=== PATIENT | male | born 1960 | race Caucasian/White ===

== ENCOUNTER → 2020-08-06 09:50 | Outpatient (CLI) | payer OTHER, SELFPAY ==
[2020-07-17 13:08] VITALS: BMI 28.1
--- NOTE | 2020-08-07 10:00 | HP_ITS ---
Intake Vital Signs 07/17/20 Height 5 ft 10 in 07/17/20 Weight: 196 lb 07/17/20 BMI 28.1 07/17/20 BP 109/80 07/17/20 Blood Pressure Location Rt brachial 07/17/20 Position Sitting 07/17/20 Respiration 18 07/17/20 Pulse 92 07/17/20 Pulse Source Monitor 07/17/20 Temp 97.4 F L 07/17/20 Temp Source Temporal 07/17/20 Pulse Oximetry (%) 98 07/17/20 Oxygen Delivery Method room air Intake Visit Reasons: CSCOPE Chief Complaint: c-scope consult Chief Specialist Leed Required: No Is patient in pain?: No Allergies Penicillins Allergy (Mild, Verified 07/17/20 13:09) Itching/watering eyes Medications carvedilol 25 mg tablet 25 mg PO BID 07/17/20 [History Confirmed 07/17/20] diclofenac sodium 1 % topical gel 4 g TOPICAL .asdir g 07/17/20 [History Confirmed 07/17/20] ibuprofen 800 mg tablet 1,600 mg PO DAILY tab 07/17/20 [History Confirmed 07/17/20] lisinopril 20 mg-hydrochlorothiazide 25 mg tablet 1 tab PO DAILY 07/17/20 [History Confirmed 07/17/20] PFSH Medical History Family history of colon cancer (Acute) Hyperlipidemia (Acute) Nicotine dependence (Acute) Chronic low back pain (Chronic) Hypertension (Chronic) Surgical History History of tonsillectomy and adenoidectomy (Acute) history excision benign growth left thigh (Acute) Family History Father Colon cancer Social History (Updated 07/17/20 @ 13:[address] Flavio Pederson MD) Smoking Status: Current every day smoker alcohol intake: current alcohol intake frequency: a few times a month substance use type: does not use HPI HPI HPI: DELFINA VANESSA is a 60 M who presents to the office today for HPI HPI Surgical H&P: Yes HPI: DELFINA VANESSA is a 60 M who presents to the office today for Evaluation for colonoscopy. Patient has never had a colonoscopy in the past. Patient's father of colon cancer at age 77 and was diagnosed at age 74. Patient has been moving his bowels without difficulty. Has not noticed any blood is not having any abdominal pain. ROS General General: No weight change, appetite, fatigue, colon cancer, breast cancer or weakness HEENT HEENT: No difficulty swallowing, eye injury, eye surgery, swollen glands or hoarseness Endo Endocrine: No thyroid disease, diabetes mellitus, thyroid cancer, Hair loss, heat intolerance or cold intolerance Skin Skin: No rash or changing moles Breast Breast: No left breast lump, right breast lump, nipple discharge, breast pain, abnormal mammogram, abnormal US or breast enlargement Musc Musculoskeletal: Yes back problems; no arthritis, rheumatoid arthritis, gout or joint pain Cardio Cardiovascular: Yes high blood pressure; no murmur, pacemaker, heart disease, atrial fibrillation, heart attack, heart stent, palpitations, shortness of breat with exertion or chest pain Psych Psychiatric: No depression, anxiety or hearing voices Resp Respiratory: No shortness of breath, No sleep apnea, No cough, No COPD, No asthma, No emphysema, No wheezing Gastro Gastrointestinal: No abdominal pain, No nausea or vomiting, No diarrhea, No constipation, No blood in stool, No acid reflux, No hemorrhoids, No ulcers, No gallbladder problem, No black,tarry stools Lul Hematologic: No blood thinners, No blood disorders, No bleeding, No anemia, No blood clots Neuro Neurologic: No system reviewed and no additional complaints, except as docu, No as per HPI, No abnormal walking, No abnormal hearing, No abnormal movements, No abnormal speech, No behavioral changes, No burning sensations, No confusion, No seizure-like activity, No unsteadiness, No dizziness, No localized weakness, No frequent falls, No headache(s), No lack of coordination, No loss of vision, No memory loss, No numbness, No other visual disturbances, No radiating pain, No restless legs, No sensory deficit, No fainting, No tingling, No tremor(s), No weakness, No other Exam Const General: no acute distress, well developed, well hydrated Orientation: oriented to person, oriented to place, oriented to time [facility] Head: normocephalic, atraumatic Ears: external ears normal Mouth: moist mucous membranes Eyes Sclera: sclerae normal Pupils: normal by confrontation Neck Neck: no lymphadenopathy noted Neck mass: No Thyroid: thyroid normal, symmetrical Chest Chest palpation & inspection: normal inspection of the chest Breast Palpation: No nipple discharge Resp Effort & Inspection: normal respiratory effort Auscultation: clear to auscultation bilaterally Percussion: percussion normal Cardio Rate: regular rate Rhythm: regular rhythm Heart Sounds: no murmurs GI Palpation: soft, no hepatosplenomegaly, no masses, nontender Rectal Exam: other Other: Rectal exam deferred. Extrem General: normal to inspection, no clubbing, cyanosis or edema Assessment & Plan Problems 1. Encounter for screening colonoscopy Z12.11 Plan I have discussed the above with the patient. I have offered the patient colonoscopy for evaluation. I have explained the risks/benefits of the procedure and described the procedure. I have discussed the risks with the patient, including but not limited to: infection, bleeding, perforation of the GI tract requiring emergency surgery, inability to complete the procedure, injury to any internal organs, complications of anesthesia, etc. - the patient understands and agrees to proceed. I have answered all the patient's questions to the patient's satisfaction and the patient has no further questions. The patient has been given instructions for the colon cleansing preparation. Coding Level of Care Code Off vis,new,level 3 Diagnoses Encounter for screening colonoscopy Z12.11 COVID (Procedure Consent) Procedure Criteria Procedure Criteria: Yes Elective The surgeon/proceduralist and patient have discussed in detail the risk of exposure to and/or potential harm posed by the COVID-19 virus with having a surgery/procedure at this time versus the risk of? delaying the surgery/procedure. It is not possible to know either the risk of delaying the surgery or procedure or chance of getting an infection with perfect accuracy, but a joint decision was made between the patient and the surgeon/proceduralist ?to proceed at this time with the scheduled surgery/procedure as indicated on the consent form.
== END ==
PROVIDERS: Visit Provider Surgery
DX: U07.1 COVID-19 (principal)
CPT/HCPCS: 87426; C9803

== ENCOUNTER 2023-10-13 09:55 | Inpatient (IN) | payer OTHER, SELFPAY ==
[2023-10-13] VITALS (47 sets, daily range): BP systolic 105–171; BP diastolic 61–97; PULSE 84–105; RESP 9–34; TEMP 36.3–37; O2SAT 89–100; BMI 25.4; BMI 24.3
--- NOTE | 2023-10-13 10:31 | EKG12_ITS ---
Test Reason : Blood Pressure : / mmHG Vent. Rate : 087 BPM Atrial Rate : 086 BPM P-R Int : 124 ms QRS Dur : 072 ms QT Int : 362 ms P-R-T Axes : 056 -05 -22 degrees QTc Int : 435 ms Sinus rhythm Possible Inferior infarct , age undetermined Abnormal ECG Confirmed by BALBINA POWELL, BACILIO ([id number]), publication editor CAROLYN CARROLL ([id number]) on 10/15/2023 8:01:49 AM Referred By: Confirmed By:BACILIO MORTENSEN MD
--- NOTE | 2023-10-13 10:35 | EX.ED.DYSGE1 ---
HPI History of Present Illness Chief Complaint: Flank Pain Narrative Narrative: Patient is a 63-year-old male who is presenting to the ER by EMS. [facility]. is at bedside. Patient is coming in secondary to severe right lateral lower chest wall pain, unable to take care of himself at home, unable to perform activities of daily living. Patient apparently has been in his lower basement, he was at home with his . Patient has been staying on the couch. Patient is been having difficulty getting to the bathroom for urination and bowel movements, and patient has been having urination and bowel movements along the couch and on the floor. EMS states that the patient's living conditions are very concerning. Patient says that he cannot get himself to the bathroom secondary to right lower lateral chest wall pain. Patient was at the [place] several weeks ago for evaluation of this pain, they did minimal test, discharge patient, and patient were not happy initially with the care. Patient is a [facility] patient, they have no other insurance, they want to make sure that everything is run by the [facility] to make sure patient can be admitted to [facility], they want patient admitted to [facility] but wants to make sure the bills are paid because they have no other insurance. They were not happy with the care at the [place]. Patient has no urinary frequency or urgency or burning. No abdominal pain nausea vomiting. Patient is 1-2 pack-a-day smoker for many years, patient has a history of emphysema and COPD, he does not wear oxygen at home. Patient has an inhaler, uses breathing treatments intermittently. Patient currently has no chest pain or shortness of breath. Patient is only having right lateral lower chest wall pain and right flank pain, patient however states this is causing inability for him to get up and walk to the bathroom which is concerning and does not quite make sense initially during HPI. [facility] Medical History (Updated 10/14/23 @ 22:[address] Renny Navarro DO) Alcohol abuse Chronic low back pain Family history of colon cancer Hyperlipidemia Hypertension Nicotine dependence Home Medications carvedilol 25 mg tablet 25 mg PO BID BLOOD PRESSURE 07/17/20 [History Last Taken 10/12/23] diclofenac sodium 1 % topical gel 4 g topical UD PRN PAIN 07/17/20 [History Last Taken 10/12/23] lisinopril 20 mg-hydrochlorothiazide 25 mg tablet 1 tab PO BID BLOOD PRESSURE 07/17/20 [History Last Taken 10/13/23] cholecalciferol (vitamin D3) 50 mcg (2,000 unit) capsule (D3-2000) 50 mcg PO DAILY SUPPLEMENT 10/13/23 [History Last Taken 10/13/23] ibuprofen 200 mg tablet 200 - 400 mg PO Q4H PAIN 10/13/23 [History Last Taken 10/13/23] omega 8-twt-vyt-fish oil 1,200 mg (144 mg-216 mg) capsule (Fish Oil) 1 cap PO DAILY SUPPLEMENT 10/13/23 [History Last Taken 10/13/23] vitamin B complex (B Complex-Vitamin B12 tablet) 1 tab PO DAILY SUPPLEMENT 10/13/23 [History Last Taken 10/13/23] Allergy/AdvReac Type Severity Reaction Status Date / Time Penicillins Allergy Mild Itching/watering Verified 10/13/23 09:56 eyes Family History Father Colon cancer Surgical History history excision benign growth left thigh History of tonsillectomy and adenoidectomy Social History (Updated 10/13/23 @ 19:[address] Kika Garcia DO) household members: spouse housing: house Smoking Status: Current every day smoker tobacco type: cigarettes alcohol intake: current alcohol intake frequency: a few times a month substance use type: does not use ROS ROS ED ROS Narrative Unless otherwise stated in this report or unable to obtain because of the patient's clinical or mental status as evidenced by medical record, the patient's positive and negative responses for review of systems for constitutional, eyes, ENT, cardiovascular, respiratory, gastrointestinal, neurological, , musculoskeletal, and integument systems and related systems to the presenting problem are either stated in the history of present illness or were not pertinent or were negative for the symptoms and/or complaints related to the presenting medical problem. EXAM Physical Exam Narrative Exam Narrative: vital signs reviewed and patient is not hypoxic. at bedside, [facility] General: The patient appears Mild distress secondary to pain and discomfort. Patient's is at bedside. Patient is resting uncomfortably on cart. Not toxic, lethargic, or listless. Patient is disheveled, tobacco staining to his alvarenga around his mouth, slightly disoriented and confused; Alert and oriented times x 3, slightly confused to time. Patient is laying in his left side, holding his right lateral chest wall Skin: Warm, dry, no pallor noted. There is no rash noted. Head: Normocephalic, atraumatic Eye: Normal conjunctiva, no drainage, EOMI. PERRL. Ears, Nose, Mouth, and Throat: oral mucosa is moist. Nares patent. Mouth without vesicles. Poor dentition, no acute intraoral pathology. Cardiovascular: Regular Rate and Rhythm, no murmurs, gallops, or rubs. Patient has moderate to severe tenderness to palpation to the right lateral chest wall, her ribs approximately 8 through 10. No rash. No crepitus. Respiratory: Patient is in no distress, no accessory muscle use, lungs are clear to auscultation, no wheezing, rales or rhonchi Back: Mild to moderate bilateral lower parathoracic and paralumbar tenderness to palpation, no step-offs, no rash,, no CVA tenderness bilaterally to percussion. NO CTLS midline or paracervicl tenderness to palpation. No signs of saddle anesthesia or cauda equina. No rash. GI: Soft, no tenderness to palpation, no masses appreciated. No rebound, guarding, or rigidity noted. Musculoskeletal: The patient has full range of motion of all extremities and joints with no difficulty. With range of motion to bilateral lower extremities, is not causing any significant pain to lower back, patient has mild hip pain bilateral with range of motion. Patient has no acute motor, no sensory deficits. Neurological: A&O3, Slightly confused to time, normal speech, no focal neurological deficits. NIH 0 Psychiatric: Cooperative; Disheveled. Const Vital Signs: 10/13/23 09:57 10/13/23 10:03 10/13/23 10:31 Temperature 97.4 F L 97.4 F L Temperature Source Temporal Temporal Pulse Rate 93 97 Respiratory Rate 28 H 34 H Blood Pressure 105/61 105/61 Blood Pressure Mean 75 75 Pulse Ox 97 96 Oxygen Delivery Method Room Air Room Air Room Air Oxygen Flow Rate (L/min) 10/13/23 14:00 10/13/23 16:00 Temperature Temperature Source Pulse Rate 101 H 93 Respiratory Rate 23 H 19 H Blood Pressure 129/83 H Blood Pressure Mean 98 Pulse Ox 93 94 Oxygen Delivery Method Room Air Nasal Cannula Oxygen Flow Rate (L/min) 2 MDM MDM MDM Narrative Medical decision making narrative: 1230 I received a phone call from the radiologist. Patient has diffuse mets to multiple of his body extensive to the pelvis, ribs, thoracic and lumbar spine. Patient has almost destruction of T7, T8, T9. Patient also has bilateral PE small, left greater than right. Patient has liver CA as well. This is all a new diagnosis. We are waiting for the official report.Patient has no history of cancer. 40 KCl 1 L normal saline over 4 hours patient potassium is 3.0, patient will be given IV potassium Approx [address] Sierra, she had spoken to Dr Treviño, Oncology. The recommendation was to have an MRI of the brain with and without contrast. If there is no mets noted to the brain, patient can be admitted to [facility]. Patient has no history of cancer. We are uncertain of the primary source, patient has diffuse metastatic disease which Is a new diagnosis today with no primary source.. [address] Garcia. She is aware of the admission and information that Dr. Sierra had given her. Patient has no mets to the brain. Patient will be started on IV heparin for PE protocol. Patient will be admitted inpatient. Patient will have consultation from Dr. Treviño as well. Patient has elevated white blood cells, 16.6. Patient calcium is 12.9. Lactic acid was 2.2, that will be repeated. Patient's alk phos was elevated as well. Patient's ammonia was negative. Tylenol and aspirin were negative. Patient has been receiving Dilaudid which has helped take the edge off patient's pain. We have called the [facility] office 3 different times, left 3 different message. Quantitative Associate did talk to several different people but have never had a return phone call from the right department that Stated [facility]. Patient and are aware of this, patient by to follow be admitted to [facility] because we have had no [facility] with the [facility] despite 3 hours of attempts of phone calls to see if patient may be admitted to [facility] versus transfer. Critical care time 33 minutes exclusive from separate billable procedures that were performed. The following was considered in the determination of critical care but not limited to the level of medical decision making, intensive cardiac and/or respiratory monitoring, frequent vital sign monitoring, evaluation of laboratory studies, evaluation of radiographic studies, oxygen monitoring, and constant monitoring and speaking to family at bedside History & Record Review Discussion w/independent historian: Patient and Family Lab Data Attestation: I reviewed the patient's lab results. Labs: Laboratory Results - last 24 hr 10/13/23 10:05 PTH Intact < 6.3 L Radiography Diagnostic Testing: Clinical Impression(s) from Imaging Studies Brain CT 10/13/23 11:50 IMPRESSION: Normal unenhanced CT scan of the brain. Lytic bone metastasis of the clivus. Electronically Signed: Cameron Faustin MD at 12:46 EST , Chest/Abdomen/Pelvis CT 10/13/23 11:50 IMPRESSION: 1. 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 2. Extensive metastatic disease to the liver. 3. Small bilateral pulmonary emboli as described above. 4. No specific mass, but question distal esophageal thickening and small hiatal hernia. 5. 3.3 cm focal abdominal aortic aneurysm. 6. Moderate to marked diffuse fecal retention. N.B. : The above Results were Read Back by Cameron Faustin MD to Renny Navarro DO, and understanding confirmed on 10/13/2023 12:29:58 (ET). Electronically Signed: Cameron Faustin MD at 12:45 EST , ADDENDUM: 10/13/23 1252 IMPRESSION: 1. 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 2. Extensive metastatic disease to the liver. 3. Small bilateral pulmonary emboli as described above. 4. No specific mass, but question distal esophageal thickening and small hiatal hernia. 5. 3.3 cm focal abdominal aortic aneurysm. 6. Moderate to marked diffuse fecal retention. N.B. : The above Results were Read Back by Cameron Faustin MD to Renny Navarro DO, and understanding confirmed on 10/13/2023 12:29:58 (ET). Electronically Signed: Cameron Faustin MD at 12:45 EST , Brain MRI 10/13/23 13:15 IMPRESSION: Nonspecific destructive lesion of the clivus which may be consistent with multiple myeloma, metastasis or chordoma Clinical correlation recommended No significant abnormality within the brain. No evidence for acute infarct or brain metastasis Electronically Signed: Renny Valerio MD at 16:16 EST , EKG Initial EKG: Attestation: I personally reviewed and interpreted this EKG as follows: (EKG interpretation. Baseline normal sinus rhythm 87 beats a minute. Normal axis deviation. Artifact noted. QTc of 435.) Discharge Plan Dx/Rx/DC Orders Clinical Impression: Metastatic cancer, Change in mental status, Bilateral pulmonary embolism, Hypercalcemia, Acute hypokalemia Disposition Disposition: Acute Care Hospital [facility] Discharge Date/Time: 10/13/23 20:10 Capacity Legal Imaging Assistant Reflex Medical hold order details:: IF a medical hold is selected below, a suggested order for a MEDICAL HOLD will reflex upon signing the document. Next of kin: [place] law dictates a PRIORITY LIST for identifying legal decision-maker/legal next of kin in the following order (LNOK): 1st: The patient?s legal guardian, if any 2nd: The patient's spouse (if status is questionable, consult Risk Management) 3rd: The patient?s adult child(rae) (majority, if multiple children) 4th: The patient?s parents 5th: The patient?s adult siblings (majority, if multiple children siblings)
[2023-10-13] MEDS: 0.9% Normal Saline (1000mL) 1,000 ML 999 ML IV (10:44)
[2023-10-13] MEDS: Ondansetron 4 MG/2 ML Vial IV ×2 (10:44→13:06)
[2023-10-13] MEDS: Morphine 4 MG/ML Syringe IV (10:44)
[2023-10-13 10:49] LABS: Absolute Lymphocyte Count 1.16 X10^3/uL (0.83-4.51); Absolute Neutrophil Count 13.5 X10^3/uL (2.0-7.7); Basophil# 0.13 X10^3/uL; Basophil% 0.8 % (0-1); Eosinophils% 4.2 % (0-5); Hematocrit 47.6 % (40-54); Hemoglobin 16.4 g/dL (13.0-16.5); Lymphocyte # 1.16 X10^3/ul (0.83-4.51); Mean Corp Hgb Conc 34.5 g/dL (32-36); Mean Corpuscular Hgb 29.6 pg (27.0-32.0); Mean Corpuscular Volume 85.9 fL (80-94); Mean Platelet Vol. 10.4 fl (6.2-12.0); Monocyte# 0.94 X10^3/uL; Monocyte% 5.7 % (0-10); NRBC Flagged by Analyzer 0 % (0-5); Neutrophil % 81.5 % (47-70); Platelet Count 385 K/mm3 (150-450); RBC Distribution Width SD 40.7 fl (35.1-43.9); Red Blood Count 5.54 M/mm3 (4.6-6.2); White Blood Count 16.6 K/mm3 (4.4-11.0)
[2023-10-13 10:58] LABS: Bacteria 0 SEEN /hpf (None Seen); Mucous, Urine 0 SEEN /hpf (<or=2+); Red Blood Cells-Urine 0 SEEN /hpf (0-5); Squamous Epithelial Cells - UA 0 SEEN /hpf (0-5)
[2023-10-13 11:01] LABS: Alcohol, Blood (Medical)-Serum < 3.0 mg/dL
[2023-10-13 11:13] LABS: Lactic Acid 2.2 mmol/L (0.4-1.9)
[2023-10-13 11:15] LABS: Glucose, Dipstick Normal (Normal); Ketone-Dipstick 50 mg/dl (Negative); Leukocyte Esterase-Dipstick 25 /ul (Negative); Nitrite-Dipstick Negative (Negative); Occult Blood-Urine 10 /ul (Negative); Protein-Dipstick 30 mg/dl (Negative); Specific Gravity, Urine 1.025 (1.002-1.030); Urine Bilirubin Dipstick Negative (Negative); Urine Urobilinogen 1 mg/dl (Normal)
[2023-10-13 11:16] LABS: ALB/GLOB Ratio 0.8 RATIO (0.9-2.4); AST(SGOT) 17 U/L (15-37); Alanine Aminotransfer ALT/SGPT 21 U/L (16-61); Albumin, Serum 3.6 g/dL (3.2-5.0); Alkaline Phosphatase 190 U/L (45-117); Anion Gap 7 (5-15); BUN 36 mg/dL (7-18); BUN/Creat Ratio 28.6 RATIO (10-20); Calcium,Total 12.9 mg/dL (8.5-10.1); Chloride 98 mmol/L (98-107); Creatinine, Serum 1.26 mg/dL (0.70-1.30); EST Glomerular Filtration Rate 61 mL/min (>60); Est Glom Filt Rate - Afr Amer 74 mL/min (>60); Estimated Creatinine Clearance 61.16 ml/min; Globulin 4.3 g/dL (2.2-4.2); Glucose 116 mg/dL (74-106); Protein, Total 7.9 g/dL (6.4-8.2); Sodium Level 136 mmol/L (136-145); Thyroid Stim Hormone (TSH) 0.37 uIU/mL (0.358-3.74)
[2023-10-13 11:16] LABS: Color, Urine YELLOW (Yellow); Hyaline Cast 5-10 SEEN /lpf (0-5); Urine Clarity Clear (Clear)
[2023-10-13 11:17] LABS: White Blood Cells 0-5 SEEN /hpf (0-5); White Cell Cast 0-5 SEEN /lpf (None Seen)
[2023-10-13 11:20] LABS: Ammonia < 10.0 umol/L (11-32)
[2023-10-13 11:34] LABS: Amphetamine Urine VISTA NEGATIVE (<1000 ng/mL); Barbiturate Urine VISTA NEGATIVE (< 200 ng/mL); Benzodiazepine Urine VISTA NEGATIVE (< 200 ng/mL); Cocaine Urine VISTA NEGATIVE (< 300 ng/mL); Ecstacy Urine VISTA NEGATIVE (< 500 ng/mL); Methadone Urine VISTA NEGATIVE (< 300 ng/mL); PCP Urine VISTA NEGATIVE (< 25 ng/mL); THC Urine VISTA NEGATIVE (< 50 ng/mL); Vista UDS pH Range 5
[2023-10-13 11:45] LABS: Acetaminophen (Tylenol) Level < 2.0 ug/mL (10.0-30.0)
--- NOTE | 2023-10-13 11:50 | CT_ITS ---
STUDY: CT BRAIN WITHOUT CONTRAST REASON FOR EXAM: Male, 63 years old. Change in Mental Status RADIATION DOSAGE (If Supplied By Facility): CTDIvol = ( 44.99 ) mGy, DLP = ( 846.73 ) mGycm TECHNIQUE: Transaxial CT imaging of the brain was performed without administration of intravenous contrast material. Individualized dose optimization techniques were used for this CT. COMPARISON: No relevant priors. FINDINGS: Normal soft tissue structures. Large lytic lesion in the clivus, measuring 2.4 cm, consistent with a bony metastasis. Normal size ventricles and extra-axial spaces for the patient''s age. Normal white matter tracts of the cerebral hemispheres. Normal basal ganglia and thalami. Normal brainstem. Normal cerebellum. There is no intracranial hemorrhage. There are no findings of an acute ischemic infarction. Normal visualized paranasal sinuses. CT/Brain/Head without Contrast IMPRESSION: Normal unenhanced CT scan of the brain. Lytic bone metastasis of the clivus. Electronically Signed: Cameron Faustin MD at 12:46 EST ,
--- NOTE | 2023-10-13 11:50 | CT_ITS ---
EXAM: CT CHEST, ABDOMEN AND PELVIS WITH INTRAVENOUS CONTRAST CLINICAL INDICATION: right flank pain TECHNIQUE: Helically acquired images were obtained of the chest, abdomen and pelvis with intravenous contrast. This CT exam was performed using one or more of the following dose reduction techniques: automated exposure control, adjustment of the mA and/or kV according to patient size, and/or use of iterative reconstruction technique. CONTRAST: IV 100mL Isovue-300 RADIATION DOSE: CTDIvol = 18.84 mGy, DLP = 1770.64 mGy-cm COMPARISON: No relevant prior studies available. FINDINGS: CHEST: LUNGS AND PLEURAL SPACES: Normal lung volumes. No infiltrates or effusions. No pulmonary nodules. Filling defects consistent with segmental pulmonary embolus to the posterior segment of the right upper lobe seen on axial image 46. Filling defects consistent with pulmonary emboli in the distal left main pulmonary artery and extending into the proximal left descending pulmonary artery, axial images 40-57. No pleural effusion or thickening. No pneumothorax. HEART: Unremarkable. Heart size is normal. No pericardial effusion. MEDIASTINUM: Possible thickening of the distal esophagus and small hiatal hernia with thickening. Consider endoscopy. No mediastinal or hilar adenopathy. THYROID: Unremarkable. No thyroid lesions. ABDOMEN: LIVER: Extensive metastatic disease to the liver. All segments involved. Largest lesion is 4.9 cm. Normal shape and size of the liver. GALLBLADDER AND BILE DUCTS: Unremarkable. No calcified gallstones. No gallbladder distention or wall edema. No intra- or extrahepatic biliary ductal dilation. PANCREAS: Unremarkable. No focal cystic or solid mass. SPLEEN: Unremarkable. Normal size without focal cystic or solid mass. ADRENALS: Unremarkable. No nodules. KIDNEYS AND URETERS: Unremarkable. Normal renal size and position. No hydronephrosis. STOMACH AND BOWEL: Evaluation of the GI tract is limited by absence of oral contrast. Cannot exclude stomach wall thickening. No dilated loops of bowel or evidence for obstruction. Cannot exclude segmental thickening of the maurer of the small or large bowel. Cannot exclude enteritis or colitis. Moderate to marked diffuse fecal retention. Diverticulosis without definite diverticulitis. Appendix within normal limits. PELVIS: APPENDIX: No evidence of acute appendicitis. BLADDER: Unremarkable. REPRODUCTIVE: Unremarkable as visualized. No mass. CHEST, ABDOMEN and PELVIS: INTRAPERITONEAL SPACE: Unremarkable. No ascites or other fluid collection. No free air. BONES/JOINTS: Widespread metastatic disease throughout numerous ribs, vertebrae, and in the pelvis. Extensive metastatic disease essentially replacing the right second rib along with multiple additional smaller lytic lesions throughout bilateral ribs. Probable pathologic fracture of the right 11th and possibly 10th ribs. Extensive metastatic disease in several vertebrae with severe osteolysis of the vertebrae at T7, T9, T10, L2, and L4. Large lytic lesion involving the posterior iliac crest on the left. Large lytic lesion involving the anterior iliac crest on the left. Extensive osteolysis and destruction of the left innominate bone, acetabulum, and ischial tuberosity. Numerous lytic lesions throughout the remainder of the pelvis. SOFT TISSUES: Unremarkable. No discrete abdominal or pelvic wall hernia. VASCULATURE: 3.3 cm focal distal abdominal aortic aneurysm. No aortic dissection. LYMPH NODES: Unremarkable. No enlarged lymph nodes. CT/CT Chest, Abd, Pel w/Contrast IMPRESSION: 1. 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 2. Extensive metastatic disease to the liver. 3. Small bilateral pulmonary emboli as described above. 4. No specific mass, but question distal esophageal thickening and small hiatal hernia. 5. 3.3 cm focal abdominal aortic aneurysm. 6. Moderate to marked diffuse fecal retention. N.B. : The above Results were Read Back by Cameron Faustin MD to Renny Navarro DO, and understanding confirmed on 10/13/2023 12:29:58 (ET). Electronically Signed: Cameron Faustin MD at 12:45 EST ,
[2023-10-13 12:03] LABS: Partial Thromboplast Time 31.1 Seconds (24.1-36.2)
[2023-10-13 12:12] LABS: Prothrombin Time (Protime)PT. 13.7 SECONDS (11.7-14.9)
[2023-10-13] MEDS: proCHLORPERazine 10 MG/2 ML Vial IV (13:06)
[2023-10-13 13:07] LABS: PSA,Total - Annual Screen 1.05 ng/mL (0.00-4.00)
[2023-10-13] MEDS: KCL 40mEq in 0.9% NS 40 MEQ/1,000 ML IV.SOLN 250 MEQ IV (13:10)
--- NOTE | 2023-10-13 13:15 | MRI_ITS ---
STUDY: MRI BRAIN WITH AND WITHOUT CONTRAST REASON FOR EXAM: Male, 63 years old. rule out CA TECHNIQUE: Standardized multiplanar fat and water weighted pulse sequences were obtained. IV Yes Clariscan was administered for the contrast portion of the examination. COMPARISON: CT of the brain October 13, 2023 FINDINGS: Normal ventricular size and size of cortical sulci. Normal white matter tracts of the supratentorial brain. Incidental finding of arachnoid cyst in the anterior left middle cranial fossa Normal bilateral basal ganglia. Normal thalami. There is no extra-axial fluid accumulation. Normal flow voids within the major intracranial circulation suggesting patency by spin echo criteria. Normal venous enhancement. There is no enhancing intra-axial or extra-axial abnormality. Normal sella turcica, pituitary gland, infundibular stalk, optic chiasm and hypothalamus. Normal tectal plate and pineal gland. Normal midbrain, gregorio and medulla. Normal cerebellum. Normal basal cisterns. Normal bilateral temporal bones. Normal bilateral internal auditory canals. No demonstrated orbital abnormality, within the constraints of a routine brain study. Normal visualized paranasal sinuses. There is very mildly enhancing destructive lesion of the clivus extension into the petrous apex bilaterally as well as the sphenoid sinus and pontine cistern.. Normal visualized soft tissue structures. Normal visualized upper cervical spine. MRI/Brain W/WO Contrast IMPRESSION: Nonspecific destructive lesion of the clivus which may be consistent with multiple myeloma, metastasis or chordoma Clinical correlation recommended No significant abnormality within the brain. No evidence for acute infarct or brain metastasis Electronically Signed: Renny Valerio MD at 16:16 EST ,
--- NOTE | 2023-10-13 13:45 | ED.RN ---
pt had emesis that was tinted red. dr. abarca notified
[2023-10-13] MEDS: HYDROmorphone 1 MG/ML Syringe IV ×2 (14:37→20:54)
[2023-10-13 14:46] LABS: Reflex Lactate? Y
--- NOTE | 2023-10-13 16:18 | ED.RN ---
[facility] CALLED @ 1327 TO MAKE THEM AWARE PT WILL NEED ADMITTED AND TO SEE WHAT WOULD BE COVERED, WHETHER HERE OR [facility] (LEFT A CONFIDENTIAL VOICEMAIL). THEY CALLED US BACK @ 1347 TO REQUEST HIS CHART TO PASS ALONG TO THE ADMISSIONS NURSE. FAXED CHART TO THEM @ 3340. CALLED THEM BACK @7900 TO FOLLOW UP, WAS NOT ABLE TO GET THROUGH TO ANYONE. LEFT A VOICEMAIL TO CALL US BACK.
[2023-10-13 17:04] LABS: International Normalized Ratio 1.1; Prothrombin Time (Protime)PT. 14.7 SECONDS (11.7-14.9)
[2023-10-13 17:06] LABS: Partial Thromboplast Time 29.2 Seconds (24.1-36.2)
[2023-10-13] MEDS: Heparin Injection (Vial) 5,000 UNIT/ML VIAL 5000 UNIT IV (17:28)
[2023-10-13] MEDS: HEPARIN/D5w 25,000 UNITS 25,000 UNITS/250 ML IV.SOLN. 11 UNITS CONT INF (17:29)
[2023-10-13 17:30] LABS: Lactic Acid 0.8 mmol/L (0.4-1.9)
--- NOTE | 2023-10-13 19:02 | HP.PCM.HOS_ITS ---
HPI - General General Date of Admission: 10/13/23 Date of Service: 10/13/23 Chief Complaint: Failure to thrive/abdominal pain/chest pain HPI Narrative DELFINA VANESSA, is a 63 M who presented to the emergency department at [facility] on 10/13/2023 with abdominal and chest pain. The patient has been having significant health issues since about January 2023. He stated it started with difficulty swallowing and he felt like food was getting stuck in his mid to distal esophagus. He was having some odynophagia and his symptoms p rogressed to the point where now he is only able to take in liquids. He has had about an 80 pound weight loss during this timeframe. He stated at 1 point he went to the [place] emergency department and they did a cardiac workup and told him he had GERD and sent him home with [facility]. He recently was approved by the [place] to schedule an outpatient EGD but this has yet to be scheduled. His pain on presentation was predominantly in the flank but he was complaining of diffuse pain as well. He does state that Dilaudid has helped him. Apparently the patient has been living in the basement and is so weak that he is not not able to get up out of the basement or go to the bathroom independently. Patient admits to previous alcohol abuse but this was remote and is currently smoking about half a pack of cigarettes a day. Vital signs on presentation showed a temperature of 97.4, heart rate 93, blood pressure is 105/61, respiratory to 28 and oxygen saturations are 97% on room air. CBC shows a mild leukocytosis at 16.6 with a left shift at 81.5% but CBC is otherwise unremarkable. Coags are normal. His chemistry panel shows hypokalemia with potassium of 3.0, An elevated BUN/creatinine at 36 and 1.26 respectively (baseline unknown). His lactic acid is normal at 0.8, calcium is 12.9 with a normal albumin. Alk phos is 190 but liver enzymes are otherwise normal. His ammonia is less than 10. PSA is 1.05 and his TSH is normal. His UA is not suggestive of infection. A CT of his brain was performed and demonstrated normal CT of the brain with lytic bone with diastasis of the clivus. CT of the chest abdomen pelvis demonstrated extensive skeletal metastasis with severe osteolytic destruction of several vertebra in the pelvis as well as ribs, extensive metastatic disease to the liver, small bilateral PE, distal esophageal thickening and a small hiatal hernia, 3.3 focal abdominal aor tic aneurysm and moderate to marked diffuse fecal retention. MRI of the brain was performed and redemonstrated lytic lesions in the cranium but no metastatic lesions in the brain itself. In the emergency department he was treated with IV fluids and started on a heparin drip for his PEs as well as given antiemetics and medication for pain. He will be admitted to telemetry with a diagnosis of PEs for further workup. [facility] Medical History (Updated 10/13/23 @ 19:[address] Kika Garcia DO) Alcohol abuse Chronic low back pain Family history of colon cancer Hyperlipidemia Hypertension Nicotine dependence Home Medications carvedilol 25 mg tablet 25 mg PO BID BLOOD PRESSURE 07/17/20 [History Last Taken 10/12/23] diclofenac sodium 1 % topical gel 4 g topical UD PRN PAIN 07/17/20 [History Last Taken 10/12/23] lisinopril 20 mg-hydrochlorothiazide 25 mg tablet 1 tab PO BID BLOOD PRESSURE 07/17/20 [History Last Taken 10/13/23] cholecalciferol (vitamin D3) 50 mcg (2,000 unit) capsule (D3-2000) 50 mcg PO DAILY SUPPLEMENT 10/13/23 [History Last Taken 10/13/23] ibuprofen 200 mg tablet 200 - 400 mg PO Q4H PAIN 10/13/23 [History Last Taken 10/13/23] omega 9-nuh-iwd-fish oil 1,200 mg (144 mg-216 mg) capsule (Fish Oil) 1 cap PO DAILY SUPPLEMENT 10/13/23 [History Last Taken 10/13/23] vitamin B complex (B Complex-Vitamin B12 tablet) 1 tab PO DAILY SUPPLEMENT 10/13/23 [History Last Taken 10/13/23] Allergy/AdvReac Type Severity Reaction Status Date / Time Penicillins Allergy Mild Itching/watering Verified 10/13/23 09:56 eyes Family History Father Colon cancer Surgical History history excision benign growth left thigh History of tonsillectomy and adenoidectomy Social History (Updated 01/17/24 @ 19:[address] Kika Garcia DO) household members: spouse housing: house Smoking Status: Current every day smoker tobacco type: cigarettes alcohol intake: current alcohol intake frequency: a few times a month substance use type: does not use ROS Constitutional Constitutional: Reports anorexia, change in weight, fatigue, malaise and weakness; Denies chills, fever(s), night sweats or other Eyes Eyes: Denies blurry vision, change in eye color, change in vision, discharge from eye(s), double vision, erythema, eye pain, loss of vision or other ENT HEENT: Reports other Details: Odynophagia ; Denies abnormal hearing, dysphagia, ear pain, epistaxis, headache(s), hearing loss, nasal congestion, nasal discharge, post nasal drip, sinus pressure or sore throat Cardiovascular Cardiovascular: Reports chest pain; Denies claudication, dyspnea on exertion, edema, lightheadedness, orthopnea, palpitations, paroxysmal nocturnal dyspnea, rapid heart rate, syncope or other Respiratory/Chest Respiratory/Chest: Reports cough, shortness of breath at rest and shortness of breath with exertion; Denies dyspnea, excessive phlegm production, hemoptysis, productive cough, wheezing or other Gastrointestinal Gastrointestinal: Reports abdominal pain, constipation, dyspepsia, nausea and vomiting; Denies coffee ground emesis, diarrhea, hematemesis, hematochezia, loose stools, melena or other Genitourinary Genitourinary: Denies burning urination, difficulty urinating, dysuria, hematuria, nocturia, urinary frequency, urinary hesitancy, urinary incontinence, urinary urgency or other Musculoskeletal Musculoskeletal: Reports arthralgias, back pain and joint pain; Denies joint stiffness, joint swelling, myalgias, neck pain or other Neurologic Neurologic: Denies abnormal gait, abnormal speech, confusion, disequilibrium, dizziness, focal weakness, headache(s), numbness, paresthesias, seizure-like activity, seizures, syncope, tingling, tremor(s) or other Psychiatric Psychiatric: Denies anxiety, depression, homicidal ideation, suicidal ideation or other Endocrine Endocrinology: Denies change in body appearance, cold intolerance, excessive sweating, heat intolerance, polydipsia, polyuria or other Hematologic/Lymphatic Hematologic/Lymphatic: Denies anemia, easy bleeding, easy bruising, lymphadenopathy or other Allergic/Immunologic Allergic/Immunologic: Denies rhinitis, hives, eczemia, asthma or other Vital Signs Vital Signs Vital Signs: 10/13/23 09:57 10/13/23 10:03 10/13/23 10:31 Temperature 97.4 F L 97.4 F L Temperature Source Temporal Temporal Pulse Rate 93 97 Respiratory Rate 28 H 34 H Blood Pressure 105/61 105/61 Blood Pressure Mean 75 75 Pulse Ox 97 96 Oxygen Delivery Method Room Air Room Air Room Air Oxygen Flow Rate (L/min) 10/13/23 14:00 10/13/23 16:00 10/13/23 11:47 Temperature Temperature Source Pulse Rate 101 H 93 92 Respiratory Rate 23 H 19 H 24 H Blood Pressure 129/83 H Blood Pressure Mean 98 Pulse Ox 93 94 98 Oxygen Delivery Method Room Air Nasal Cannula Oxygen Flow Rate (L/min) 2 10/13/23 11:50 10/13/23 12:00 10/13/23 12:10 Temperature Temperature Source Pulse Rate 94 96 89 Respiratory Rate 23 H 24 H 18 Blood Pressure Blood Pressure Mean Pulse Ox 97 97 89 Oxygen Delivery Method Oxygen Flow Rate (L/min) 10/13/23 12:20 10/13/23 12:30 10/13/23 12:40 Temperature Temperature Source Pulse Rate 84 91 91 Respiratory Rate 18 18 24 H Blood Pressure Blood Pressure Mean Pulse Ox 89 90 92 Oxygen Delivery Method Oxygen Flow Rate (L/min) 10/13/23 12:50 10/13/23 13:00 10/13/23 13:10 Temperature Temperature Source Pulse Rate 98 87 93 Respiratory Rate 23 H 22 H 23 H Blood Pressure Blood Pressure Mean Pulse Ox 91 91 94 Oxygen Delivery Method Oxygen Flow Rate (L/min) 10/13/23 13:20 10/13/23 13:30 10/13/23 13:40 Temperature Temperature Source Pulse Rate 92 96 88 Respiratory Rate 21 H 23 H 15 Blood Pressure Blood Pressure Mean Pulse Ox 92 93 91 Oxygen Delivery Method Oxygen Flow Rate (L/min) 10/13/23 13:50 10/13/23 14:00 10/13/23 14:10 Temperature Temperature Source Pulse Rate 91 98 99 Respiratory Rate 15 21 H 14 Blood Pressure Blood Pressure Mean Pulse Ox 92 93 92 Oxygen Delivery Method Oxygen Flow Rate (L/min) 10/13/23 14:20 10/13/23 14:30 10/13/23 15:55 Temperature Temperature Source Pulse Rate 105 H 99 Respiratory Rate 27 H 17 Blood Pressure Blood Pressure Mean Pulse Ox 96 95 90 Oxygen Delivery Method Oxygen Flow Rate (L/min) 10/13/23 15:57 10/13/23 16:00 10/13/23 16:03 Temperature Temperature Source Pulse Rate 98 103 H 100 Respiratory Rate 12 9 L Blood Pressure Blood Pressure Mean 99 94 Pulse Ox 90 90 95 Oxygen Delivery Method Oxygen Flow Rate (L/min) 10/13/23 16:10 10/13/23 16:20 10/13/23 16:26 Temperature Temperature Source Pulse Rate 96 93 99 Respiratory Rate Blood Pressure 129/83 H Blood Pressure Mean 102 Pulse Ox 98 98 98 Oxygen Delivery Method Oxygen Flow Rate (L/min) 10/13/23 16:30 10/13/23 16:40 10/13/23 16:50 Temperature Temperature Source Pulse Rate 94 99 102 H Respiratory Rate Blood Pressure Blood Pressure Mean Pulse Ox 99 99 98 Oxygen Delivery Method Oxygen Flow Rate (L/min) 10/13/23 17:00 10/13/23 17:10 10/13/23 17:20 Temperature Temperature Source Pulse Rate 93 93 96 Respiratory Rate Blood Pressure Blood Pressure Mean Pulse Ox 100 99 100 Oxygen Delivery Method Oxygen Flow Rate (L/min) 10/13/23 17:30 10/13/23 17:40 10/13/23 17:50 Temperature Temperature Source Pulse Rate 99 98 96 Respiratory Rate 16 15 13 Blood Pressure Blood Pressure Mean Pulse Ox 98 97 97 Oxygen Delivery Method Oxygen Flow Rate (L/min) 10/13/23 18:00 10/13/23 18:10 10/13/23 18:15 Temperature Temperature Source Pulse Rate 98 95 94 Respiratory Rate 13 12 12 Blood Pressure 126/83 H 136/88 H Blood Pressure Mean 97 101 Pulse Ox 98 97 96 Oxygen Delivery Method Oxygen Flow Rate (L/min) 10/13/23 18:20 10/13/23 18:30 Temperature Temperature Source Pulse Rate 94 96 Respiratory Rate 13 11 L Blood Pressure 114/73 Blood Pressure Mean 87 Pulse Ox 98 96 Oxygen Delivery Method Oxygen Flow Rate (L/min) Weight Weight: 80.3 kg Body Mass Index (BMI) 25.4 Physical Exam Const alert, oriented x3, no apparent distress and average body habitus; Negative for healthy appearing or well nourished Constitutional Narrative: Ill-appearing, upper middle-aged, white male, appears much older than stated age, lying in bed, at bedside, does not appear toxic however does appear ill General Appearance: cooperative HEENT normocephalic, head/scalp atraumatic, hearing grossly normal bilaterally and moist oral mucous membranes HEENT Narrative: Dentition is poor, Mallampati is 2, no thrush, nicotine stains on his alvarenga Eyes PERRL, EOMs intact bilaterally and conjunctivae normal Neck no lymphadenopathy and supple Neck Narrative: Trachea midline, no thyroid enlargement Resp normal respiratory effort, no retractions, no use of accessory muscles and No clear to auscultation bilaterally Resp Narrative: Diffusely diminished with scattered end expiratory wheezes Auscultation: wheezes; Negative for rales or rhonchi Cardio regular rate, regular rhythm, S1 normal heart sound, S2 normal heart sound, no murmurs, no rub, no gallops and no clicks GI normal to inspection, nondistended, normoactive bowel sounds, soft to palpation and non-tender Extremity no clubbing, cyanosis or edema Extremity Narrative: Decreased lean muscle mass, 2+ pedal pulses Skin no rashes or lesions noted, no wounds, skin turgor normal, no jaundice, no bertha chiae and no mottling Neuro oriented x3, CN's II-XII intact bilaterally, moves all extremities and no focal motor deficits Neuro Narrative: Severe generalized weakness noted Speech: speech normal Psych affect normal Psych Narrative: Eye contact is good, patient interacts appropriately Results Lab / Micro Data 10/13/23 10:05 10/13/23 10:05 Labs: Laboratory Results - last 24 hr 10/13/23 10:05: WBC 16.6 H, RBC 5.54, Hgb 16.4, Hct 47.6, MCV 85.9, MCH 29.6, MCHC 34.5, RDW Std Deviation 40.7, RDW Coeff of Graham 13.0, Plt Count 385, MPV 10.4, Immature Gran % (Auto) 0.800, Neut % (Auto) 81.5 H, Lymph % (Auto) 7.0 L, [place] % (Auto) 5.7, Eos % (Auto) 4.2, Baso % (Auto) 0.8, Absolute Neuts (auto) 13.5 H, Absolute Lymphs (auto) 1.16, Nucleated RBC % 0, PT 13.7, INR 1.0, APTT 31.1, Sodium 136, Potassium 3.0 L, Chloride 98, Carbon Dioxide 31.0, Anion Gap 7, BUN 36 H, Creatinine 1.26, Estim Creat Clear Calc 61.16, Est GFR (MDRD) Af A luis 74, Est GFR (MDRD) Non-Af 61, BUN/Creatinine Ratio 28.6 H, Glucose 116 H, Lactic Acid 2.2 H*, Calcium 12.9 H*, Total Bilirubin 0.80, AST 17, ALT 21, Alkaline Phosphatase 190 H, Ammonia < 10.0 L, Total Protein 7.9, Albumin 3.6, Globulin 4.3 H, Albumin/Globulin Ratio 0.8 L, PSA Screen 1.05, TSH 0.37, Acetaminophen < 2.0 L, Ethyl Alcohol < 3.0 10/13/23 10:50: Urine Color YELLOW, Urine Clarity Clear, Urine pH 5.0, Ur Specific Victor 1.025, Urine Protein 30 H, Urine Glucose (UA) Normal, Urine Ketones 50 H, Urine Occult Blood 10 H, Urine Nitrite Negative, Urine Bilirubin Negative, Urine Urobilinogen 1 H, Ur Leukocyte Esterase 25 H, Urine RBC 0 SEEN, Urine WBC 0-5 SEEN, Ur Squamous Epith Cells 0 SEEN, Urine Bacteria 0 SEEN, Hyaline Casts 5-10 SEEN, WBC Casts 0-5 SEEN, Urine Mucus 0 SEEN, Urine Opiates Screen NEGATIVE, Urine Methadone Screen NEGATIVE, Ur Barbiturates Screen NEGATIVE, Ur Phencyclidine Scrn NEGATIVE, Ur Amphetamines Screen NEGATIVE, MDMA (Ecstasy) Screen NEGATIVE, U Benzodiazepines Scrn NEGATIVE, Urine Cocaine Screen NEGATIVE, U Cannabinoids Screen NEGATIVE, Ur Drug Screen Comment 10/13/23 16:45: PT 14.7, INR 1.1, APTT 29.2, Lactic Acid 0.8 Micro: Microbiology 10/13/23 10:50 Mucosa - Nose Coronavirus COVID-19 PCR - Final Imagaing Radiology Impression Brain CT 10/13/23 11:50 IMPRESSION: Normal unenhanced CT scan of the brain. Lytic bone metastasis of the clivus. Electronically Signed: Cameron Faustin MD at 12:46 EST , Chest/Abdomen/Pelvis CT 10/13/23 11:50 IMPRESSION: 1. 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 2. Extensive metastatic disease to the liver. 3. Small bilateral pulmonary emboli as described above. 4. No specific mass, but question distal esophageal thickening and small hiatal hernia. 5. 3.3 cm focal abdominal aortic aneurysm. 6. Moderate to marked diffuse fecal retention. N.B. : The above Results were Read Back by Cameron Faustin MD to Renny Navarro DO, and understanding confirmed on 10/13/2023 12:29:58 (ET). Electronically Signed: Cameron Faustin MD at 12:45 EST , ADDENDUM: 10/13/23 1252 IMPRESSION: 1. 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 2. Extensive metastatic disease to the liver. 3. Small bilateral pulmonary emboli as described above. 4. No specific mass, but question distal esophageal thickening and small hiatal hernia. 5. 3.3 cm focal abdominal aortic aneurysm. 6. Moderate to marked diffuse fecal retention. N.B. : The above Results were Read Back by Cameron Faustin MD to Renny Navarro DO, and understanding confirmed on 10/13/2023 12:29:58 (ET). Electronically Signed: Cameron Faustin MD at 12:45 EST , Brain MRI 10/13/23 13:15 IMPRESSION: Nonspecific destructive lesion of the clivus which may be consistent with multiple myeloma, metastasis or chordoma Clinical correlation recommended No significant abnormality within the brain. No evidence for acute infarct or brain metastasis Electronically Signed: Renny Valerio MD at 16:16 EST , Assessment & Plan Assessment/Plan (1) Hypercalcemia: (2) Metastatic cancer: (3) Bilateral pulmonary embolism: (4) Hypokalemia: (5) Leukocytosis: (6) Dehydration: (7) Severe malnutrition: (8) AAA (abdominal aortic aneurysm): (9) Constipation: PLAN: Plan Metastatic cancer of unknown primary -Highly suspect esophageal based on symptoms and imaging -CT of the chest abdomen and pelvis shows extensive skeletal metastatic disease with severe osteolytic destruction of several vertebrae and significant mount in the pelvics and ribs, extensive metastatic disease to the liver, small bilateral PE, esophageal thickening with small hiatal hernia, 3.3 focal abdominal aortic aneurysm and constipation -Protonix IV twice daily 40 mg -As needed pain medication -As needed antiemetics -IV fluids with LR at 100 cc/h -PSA is normal -GI consultation for EGD and biopsy for tissue diagnosis tomorrow if tissue diagnosis cannot be ascertained with EGD may need CT-guided biopsy of liver mass -Once tissue diagnosis is obtained will need oncology involvement to see if there is any chemotherapy as I do not think he is good to be surgical candidate Hypercalcemia -Likely related to lytic lesions -Albumin is normal -Will hydrate and check intact PTH and vitamin D -may need further treatment but does appear to be had dehydrated so may come down with IV fluids alone -Repeat calcium level in a.m. -Hold home HCTZ as this may be exacerbating his hypercalcemia Odynophagia -See above Hypokalemia -P.o. liquid potassium given -Recheck in a.m. -Check a.m. magnesium level Bilateral PE -Heparin drip with intent to transition to orals as able at discharge -Stop heparin drip at 6 AM for EGD later that morning Dehydration -Patient appears mildly dehydrated -IV fluids -Recheck serum creatinine and BUN in the morning -Baseline unclear Constipation -Marked constipation noted on CT -Will start MiraLAX twice daily -May need enemas if no progress with twice daily MiraLAX Severe malnutrition -Patient with 80 pound weight loss in the past 6 to 8 months -Dietitian consulted -Will need supplements once p.o. diet allowed AAA -3.3 cm AAA noted on CT of the abdomen and pelvis -Outpatient follow-up as able GERD -IV PPI twice daily Hypertension -Continue home carvedilol -Continue home lisinopril but hold HCTZ due to hypercalcemia History of Alcohol abuse -Remote Tobacco abuse -Recommend cessation -Nicotine patch available -Suspect patient has COPD at baseline -As needed albuterol nebulizers -Incentive spirometer DVT prophylaxis -Patient is on heparin drip for diagnosed PE CODE STATUS -DNR CCA with no intubation as clarified on admission Charges/Coding Visit Charges Inpatient E&M: 29305 Init Hosp L3
[2023-10-13 21:26] LABS: Vitamin D,25 Hydroxy 57.6 ng/mL
[2023-10-13] MEDS: Lactated Ringers 1,000 ML 100 ML IV (22:48)
[2023-10-13] MEDS: 0.9% Saline Lock 10 ML Syringe IV (22:48)
[2023-10-13] MEDS: Pantoprazole Sodium 40 MG in 0.9% Normal Saline (100mL MB+) 100 ML 330 MG IV (22:57)
[2023-10-13] MEDS: Potassium Chloride Oral Soln 20 MEQ/15 ML UDC 40 MEQ PO (23:05)
[2023-10-13] MEDS: Carvedilol 25 MG Tablet PO (23:06)
[2023-10-13] MEDS: Polyethylene Glycol 3350 17 GM PACKET PO (23:07)
--- NOTE | 2023-10-13 23:33 | EX.PCM.CON.G ---
HPI Consult Data Date of Consult: 10/13/23 HPI Narrative Reason for Consultation: Esophageal obstruction HPI Narrative: DELFINA VANESSA, is a 63 M who presented to the emergency department at [facility] on 10/13/2023 with abdominal and chest pain. The patient has been having significant health issues since about January 2023. He stated it started with difficulty swallowing and he felt like food was getting stuck in his mid to distal esophagus. He was having some odynophagia and his symptoms progressed to the point where now he is only able to take in liquids. He has had about an 80 pound weight loss during this timeframe. He stated at 1 point he went to the [place] emergency department and they did a cardiac workup and told him he had GERD and sent him home with [facility]. He recently was approved by the [place] to schedule an outpatient EGD but this has yet to be scheduled. His pain on presentation was predominantly in the flank but he was complaining of diffuse pain as well. He does state that Dilaudid has helped him. Apparently the patient has been living in the basement and is so weak that he is not not able to get up out of the basement or go to the bathroom independently. Patient admits to previous alcohol abuse but this was remote and is currently smoking about half a pack of cigarettes a day. Vital signs on presentation showed a temperature of 97.4, heart rate 93, blood pressure is 105/61, respiratory to 28 and oxygen saturations are 97% on room air. CBC shows a mild leukocytosis at 16.6 with a left shift at 81.5% but CBC is otherwise unremarkable. Coags are normal. His chemistry panel shows hypokalemia with potassium of 3.0, An elevated BUN/creatinine at 36 and 1.26 respectively (baseline unknown). His lactic acid is normal at 0.8, calcium is 12.9 with a normal albumin. Alk phos is 190 but liver enzymes are otherwise normal. His ammonia is less than 10. PSA is 1.05 and his TSH is normal. A CT of his brain was performed and demonstrated normal CT of the brain with lytic bone with diastasis of the clivus. CT of the chest abdomen pelvis demonstrated extensive skeletal metastasis with severe osteolytic destruction of several vertebra in the pelvis as well as ribs, extensive metastatic disease to the liver, small bilateral PE, distal esophageal thickening and a small hiatal hernia, 3.3 focal abdominal aortic aneurysm and moderate to marked diffuse fecal retention. MRI of the brain was performed and redemonstrated lytic lesions in the cranium but no metastatic lesions in the brain itself. In the emergency department he was treated with IV fluids and started on a heparin drip for his PEs as well as given antiemetics and medication for pain. [facility] Medical History (Updated 10/13/23 @ 19:[address] Kika Garcia DO) Alcohol abuse Chronic low back pain Family history of colon cancer Hyperlipidemia Hypertension Nicotine dependence Home Medications carvedilol 25 mg tablet 25 mg PO BID BLOOD PRESSURE 07/17/20 [History Last Taken 10/12/23] diclofenac sodium 1 % topical gel 4 g topical UD PRN PAIN 07/17/20 [History Last Taken 10/12/23] lisinopril 20 mg-hydrochlorothiazide 25 mg tablet 1 tab PO BID BLOOD PRESSURE 07/17/20 [History Last Taken 10/13/23] cholecalciferol (vitamin D3) 50 mcg (2,000 unit) capsule (D3-2000) 50 mcg PO DAILY SUPPLEMENT 10/13/23 [History Last Taken 10/13/23] ibuprofen 200 mg tablet 200 - 400 mg PO Q4H PAIN 10/13/23 [History Last Taken 10/13/23] omega 8-pql-iyt-fish oil 1,200 mg (144 mg-216 mg) capsule (Fish Oil) 1 cap PO DAILY SUPPLEMENT 10/13/23 [History Last Taken 10/13/23] vitamin B complex (B Complex-Vitamin B12 tablet) 1 tab PO DAILY SUPPLEMENT 10/13/23 [History Last Taken 10/13/23] Allergy/AdvReac Type Severity Reaction Status Date / Time Penicillins Allergy Mild Itching/watering Verified 10/13/23 09:56 eyes Family History Father Colon cancer Surgical History history excision benign growth left thigh History of tonsillectomy and adenoidectomy Social History (Updated 10/13/23 @ 19:[address] Kika Garcia DO) household members: spouse housing: house Smoking Status: Current every day smoker tobacco type: cigarettes alcohol intake: current alcohol intake frequency: a few times a month substance use type: does not use ROS Constitutional Constitutional: Reports anorexia, change in weight, fatigue, malaise and weakness; Denies chills, fever(s), night sweats or other Eyes Eyes: Denies blurry vision, change in eye color, change in vision, discharge from eye(s), double vision, erythema, eye pain, loss of vision or other ENT HEENT: Reports other Details: Odynophagia ; Denies abnormal hearing, dysphagia, ear pain, epistaxis, headache(s), hearing loss, nasal congestion, nasal discharge, post nasal drip, sinus pressure or sore throat Cardiovascular Cardiovascular: Reports chest pain; Denies claudication, dyspnea on exertion, edema, lightheadedness, orthopnea, palpitations, paroxysmal nocturnal dyspnea, rapid heart rate, syncope or other Respiratory/Chest Respiratory/Chest: Reports cough, shortness of breath at rest and shortness of breath with exertion; Denies dyspnea, excessive phlegm production, hemoptysis, productive cough, wheezing or other Gastrointestinal Gastrointestinal: Reports abdominal pain, constipation, dyspepsia, nausea and vomiting; Denies coffee ground emesis, diarrhea, hematemesis, hematochezia, loose stools, melena or other Genitourinary Genitourinary: Denies burning urination, difficulty urinating, dysuria, hematuria, nocturia, urinary frequency, urinary hesitancy, urinary incontinence, urinary urgency or other Musculoskeletal Musculoskeletal: Reports arthralgias, back pain and joint pain; Denies joint stiffness, joint swelling, myalgias, neck pain or other Neurologic Neurologic: Denies abnormal gait, abnormal speech, confusion, disequilibrium, dizziness, focal weakness, headache(s), numbness, paresthesias, seizure-like activity, seizures, syncope, tingling, tremor(s) or other Psychiatric Psychiatric: Denies anxiety, depression, homicidal ideation, suicidal ideation or other Endocrine Endocrinology: Denies change in body appearance, cold intolerance, excessive sweating, heat intolerance, polydipsia, polyuria or other Hematologic/Lymphatic Hematologic/Lymphatic: Denies anemia, easy bleeding, easy bruising, lymphadenopathy or other Allergic/Immunologic Allergic/Immunologic: Denies rhinitis, hives, eczemia, asthma or other Physical Exam Const alert, oriented x3, no apparent distress and average body habitus; Negative for healthy appearing or well nourished Constitutional Narrative: Ill-appearing, upper middle-aged, white male, appears much older than stated age, lying in bed, at bedside, does not appear toxic however does appear ill General Appearance: cooperative HEENT normocephalic, head/scalp atraumatic, hearing grossly normal bilaterally and moist oral mucous membranes HEENT Narrative: Dentition is poor, Mallampati is 2, no thrush, nicotine stains on his alvarenga Eyes PERRL, EOMs intact bilaterally and conjunctivae normal Neck no lymphadenopathy and supple Neck Narrative: Trachea midline, no thyroid enlargement Resp normal respiratory effort, no retractions, no use of accessory muscles and No clear to auscultation bilaterally Resp Narrative: Diffusely diminished with scattered end expiratory wheezes Auscultation: wheezes; Negative for rales or rhonchi Cardio regular rate, regular rhythm, S1 normal heart sound, S2 normal heart sound, no murmurs, no rub, no gallops and no clicks GI normal to inspection, nondistended, normoactive bowel sounds, soft to palpation and non-tender Extremity no clubbing, cyanosis or edema Extremity Narrative: Decreased lean muscle mass, 2+ pedal pulses Skin no rashes or lesions noted, no wounds, skin turgor normal, no jaundice, no petechiae and no mottling Neuro oriented x3, CN's II-XII intact bilaterally, moves all extremities and no focal motor deficits Neuro Narrative: Severe generalized weakness noted Speech: speech normal Psych affect normal Psych Narrative: Eye contact is good, patient interacts appropriately Lab / Micro Data 10/14/23 05:50 10/14/23 05:50 Labs: Laboratory Results - last 24 hr 10/13/23 10:05: WBC 16.6 H, RBC 5.54, Hgb 16.4, Hct 47.6, MCV 85.9, MCH 29.6, MCHC 34.5, RDW Std Deviation 40.7, RDW Coeff of Graham 13.0, Plt Count 385, MPV 10.4, Immature Gran % (Auto) 0.800, Neut % (Auto) 81.5 H, Lymph % (Auto) 7.0 L, [place] % (Auto) 5.7, Eos % (Auto) 4.2, Baso % (Auto) 0.8, Absolute Neuts (auto) 13.5 H, Absolute Lymphs (auto) 1.16, Nucleated RBC % 0, PT 13.7, INR 1.0, APTT 31.1, Sodium 136, Potassium 3.0 L, Chloride 98, Carbon Dioxide 31.0, Anion Gap 7, BUN 36 H, Creatinine 1.26, Estim Creat Clear Calc 61.16, Est GFR (MDRD) Af Amer 74, Est GFR (MDRD) Non-Af 61, BUN/Creatinine Ratio 28.6 H, Glucose 116 H, Lactic Acid 2.2 H*, Calcium 12.9 H*, Total Bilirubin 0.80, AST 17, ALT 21, Alkaline Phosphatase 190 H, Ammonia < 10.0 L, Total Protein 7.9, Albumin 3.6, Globulin 4.3 H, Albumin/Globulin Ratio 0.8 L, PSA Screen 1.05, Vitamin D 25-Hydroxy 57.6, TSH 0.37, Acetaminophen < 2.0 L, Ethyl Alcohol < 3.0 10/13/23 10:50: Urine Color YELLOW, Urine Clarity Clear, Urine pH 5.0, Ur Specific Humble 1.025, Urine Protein 30 H, Urine Glucose (UA) Normal, Urine Ketones 50 H, Urine Occult Blood 10 H, Urine Nitrite Negative, Urine Bilirubin Negative, Urine Urobilinogen 1 H, Ur Leukocyte Esterase 25 H, Urine RBC 0 SEEN, Urine WBC 0-5 SEEN, Ur Squamous Epith Cells 0 SEEN, Urine Bacteria 0 SEEN, Hyaline Casts 5-10 SEEN, WBC Casts 0-5 SEEN, Urine Mucus 0 SEEN, Urine Opiates Screen NEGATIVE, Urine Methadone Screen NEGATIVE, Ur Barbiturates Screen NEGATIVE, Ur Phencyclidine Scrn NEGATIVE, Ur Amphetamines Screen NEGATIVE, MDMA (Ecstasy) Screen NEGATIVE, U Benzodiazepines Scrn NEGATIVE, Urine Cocaine Screen NEGATIVE, U Cannabinoids Screen NEGATIVE, Ur Drug Screen Comment 10/13/23 16:45: PT 14.7, INR 1.1, APTT 29.2, Lactic Acid 0.8 10/13/23 23:38: APTT 66.2 H 10/14/23 05:50: WBC 10.9, RBC 4.42 L, Hgb 13.0, Hct 38.3 L, MCV 86.7, MCH 29.4, MCHC 33.9, RDW Std Deviation 41.5, RDW Coeff of Graham 13.2, Plt Count 291, MPV 9.7, Immature Gran % (Auto) 0.600, Neut % (Auto) 74.7 H, Lymph % (Auto) 10.7 L, [place] % (Auto) 9.3, Eos % (Auto) 4.1, Baso % (Auto) 0.6, Absolute Neuts (auto) 8.1 H, Absolute Lymphs (auto) 1.16, Nucleated RBC % 0, PT 13.9, INR 1.1, APTT 54.4 H, Sodium 142, Potassium 3.5, Chloride 109 H, Carbon Dioxide 30.0, Anion Gap 3 L, BUN 25 H, Creatinine 0.77, Estim Creat Clear Calc 100.07, Est GFR (MDRD) Af Amer 130, Est GFR (MDRD) Non-Af 107, BUN/Creatinine Ratio 32.3 H, Glucose 89, Calcium 10.4 H, Phosphorus 2.0 L, Magnesium 1.9, Total Bilirubin 0.50, AST 13 L, ALT 15 L, Alkaline Phosphatase 131 H, Total Protein 5.9 L, Albumin 2.6 L, Globulin 3.3, Albumin/Globulin Ratio 0.8 L, TSH 0.18 L, Free T4 0.90 Micro: Microbiology 10/13/23 10:50 Mucosa - Nose Coronavirus COVID-19 PCR - Final Imagaing Radiology Impression Brain CT 10/13/23 11:50 IMPRESSION: Normal unenhanced CT scan of the brain. Lytic bone metastasis of the clivus. Electronically Signed: Cameron Faustin MD at 12:46 EST , Chest/Abdomen/Pelvis CT 10/13/23 11:50 IMPRESSION: 1. 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 2. Extensive metastatic disease to the liver. 3. Small bilateral pulmonary emboli as described above. 4. No specific mass, but question distal esophageal thickening and small hiatal hernia. 5. 3.3 cm focal abdominal aortic aneurysm. 6. Moderate to marked diffuse fecal retention. N.B. : The above Results were Read Back by Cameron Faustin MD to Renny Navarro DO, and understanding confirmed on 10/13/2023 12:29:58 (ET). Electronically Signed: Cameron Faustin MD at 12:45 EST , ADDENDUM: 10/13/23 1252 IMPRESSION: 1. 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 2. Extensive metastatic disease to the liver. 3. Small bilateral pulmonary emboli as described above. 4. No specific mass, but question distal esophageal thickening and small hiatal hernia. 5. 3.3 cm focal abdominal aortic aneurysm. 6. Moderate to marked diffuse fecal retention. N.B. : The above Results were Read Back by Cameron Faustin MD to Renny Navarro DO, and understanding confirmed on 10/13/2023 12:29:58 (ET). Electronically Signed: Cameron Faustin MD at 12:45 EST , Brain MRI 10/13/23 13:15 IMPRESSION: Nonspecific destructive lesion of the clivus which may be consistent with multiple myeloma, metastasis or chordoma Clinical correlation recommended No significant abnormality within the brain. No evidence for acute infarct or brain metastasis Electronically Signed: Renny Valerio MD at 16:16 EST , Assessment & Plan Assessment/Plan (1) Hypercalcemia: (2) Metastatic cancer: (3) Bilateral pulmonary embolism: (4) Hypokalemia: (5) Leukocytosis: (6) Dehydration: (7) Severe malnutrition: (8) AAA (abdominal aortic aneurysm): (9) Constipation: PLAN: Plan 63-year-old gentleman who comes in with progressive weight loss and abdominal pain and chest pain discovered to have bilateral PEs from unknown cause. He was also discovered to have obstruction at the level of the distal esophagus in the CT scanning of the abdomen and pelvis. At this time he has metastatic cancer of unknown primary -Highly suspect esophageal based on symptoms and imaging -CT of the chest abdomen and pelvis shows extensive skeletal metastatic disease with severe osteolytic destruction of several vertebrae and significant mount in the pelvics and ribs, extensive metastatic disease to the liver, small bilateral PE, esophageal thickening with small hiatal hernia, 3.3 focal abdominal aortic aneurysm and constipation -Protonix IV twice daily 40 mg -As needed antiemetics -I was consulted for EGD and biopsy for tissue diagnosis -He was explained alternatives, risk, benefits include not withstanding bleeding, infection, sepsis, perforation, need for emergent urgent . He will have an ASA of 3. Hypercalcemia -Likely related to lytic lesions -Albumin is normal -Will hydrate and check intact PTH and vitamin D -may need further treatment but does appear to be had dehydrated so may come down with IV fluids alone -Repeat calcium level in a.m. Bilateral PE -Heparin drip with intent to transition to orals as able at discharge -Stop heparin drip at 6 AM for EGD later that morning Capacity Legal [place] Reflex Medical hold order details:: IF a medical hold is selected below, a suggested order for a MEDICAL HOLD will reflex upon signing the document. Next of kin: [place] law dictates a PRIORITY LIST for identifying legal decision-maker/legal next of kin in the following order (LNOK): 1st: The patient?s legal guardian, if any 2nd: The patient's spouse (if status is questionable, consult Risk Management) 3rd: The patient?s adult child(rae) (majority, if multiple children) 4th: The patient?s parents 5th: The patient?s adult siblings (majority, if multiple children siblings) Charges/Coding Visit Charges Inpatient E&M: 35443 Init Hosp L3
[2023-10-14] VITALS (9 sets, daily range): BP systolic 103–146; BP diastolic 75–92; PULSE 74–92; RESP 14–16; TEMP 36.2–36.9; O2SAT 95–100; BMI 24.7
--- NOTE | 2023-10-14 | ESO_PTH ---
PATHOLOGY RESULTS PATIENT: DELFINA VANESSA Jr. LOC: [facility] U#:[id number] AGE/SX: 63/M ROOM: [facility] RE10/13/[address]: Dr. Tadoe Lizarraga DO : 1960 BED: 1 DIS: 10/27/2023 SPEC #: [id number] RECD: 10/14/23 11:15 STATUS: GABBIE ETTA #: [id number] FARIDA: 10/14/23 00:[address]: Leobardo Hernandez DEPT: SURGICAL PATHOLOGY RECD BY: Shantelle Escoto ENTERED: 10/14/23 11:52 SP TYPE: PRITI ESCOBEDO DR: DO Dr. Guerline Venegas MD [facility] Tissues: Esophagus, NOS Esophagus, NOS Procedures: Frozen Section (charge) Surgery Specimen Level IV HEADER OPERATION: EGD, biopsy PRE-OP DIAGNOSIS: Hypercalcemia, metastatic cancer, bilateral pulmonary embolism TISSUE SUBMITTED: A - Esophageal mass biopsy, frozen section, B - Esophageal mass biopsy FROZEN SECTION DIAGNOSIS A. Esophageal mass, biopsy: Poorly differentiated non-small cell carcinoma, favor adenocarcinoma. AM:hero 10/14/2023 Case has been reviewed in consultation with Dr. Jimenez who concurs with the above diagnosis. IDC:CARLOS MICROSCOPIC DIAGNOSIS A. Esophageal mass, biopsy: Poorly differentiated adenocarcinoma. B. Esophageal mass, biopsy: Poorly differentiated adenocarcinoma. See comment. CARLOS:hero 10/15/2023 COMMENT B. Immunohistochemistry ([id number]) supports the above diagnosis and Microsatellite Instability study is being performed and results will be reported separately. Molecular studies on the tumor can be performed if clinically indicated. Please notify the laboratory if they are needed. Case has been reviewed in consultation with Dr. Lenz who concurs with the above diagnosis. IDC:ANDREIA MICROSCOPIC DESCRIPTION Slides are reviewed. GROSS DESCRIPTION A - Received fresh for frozen section consultation labeled with the patient's name is a specimen designated esophageal mass biopsy. The specimen consists of multiple irregular fragments of cook-pink soft tissue that in aggregate measure 0.5 x 0.4 x 0.1 cm. The specimen is totally submitted for frozen section consultation in one cassette. / AM:hero 10/14/2023 B - Received in fixative is one container labeled with the patient's name and designated esophageal mass biopsy. The specimen consists of multiple irregular fragments of light cook soft tissue that in aggregate measure 2.5 x 0.5 x 0.1 cm. The specimen is totally submitted in one cassette. / SJ:hero 10/14/2023 TC:0 CPT: 10751 x2, 35453
--- NOTE | 2023-10-14 | IMM_PTH ---
PATHOLOGY RESULTS PATIENT: DELFINA VANESSA Jr. LOC: [facility] U#:[id number] AGE/SX: 63/M ROOM: [facility] RE10/13/[address]: Dr. Tadeo Lizarraga DO : 1960 BED: 1 DIS: 10/27/2023 SPEC #: [id number] RECD: 10/15/23 13:50 STATUS: GABBIE REQ #: [id number] FARIDA: 10/14/23 00:[address]: Leobardo Hernandez DEPT: IMMUNOHISTOCHEMISTRY RECD BY: Shantelle Escoto ENTERED: 10/15/23 13:52 SP TYPE: IMMUNO OTHR DR: DO Dr. Guerline Venegas MD [facility] Tissues: Esophagus, NOS Procedures: MSH2 (add) MLH-1 (add) MSH6 (add) Anti-PMS2 (add) CK20 (add) CK7 (add) CK8 (add) HER2 DEXTER (add) KI-67 (add) P53 (add) Pankeratin (initial) MOC-31 (add) PHYSICIAN & INSTITUTION [place] [id number] SPECIMEN INFORMATION: Tissue Source: B - Esophageal mass Clinical Info: Esophageal mass Specimen Number: [id number] CPT code: 27379, 50649 x12 METHODOLOGY: Deparaffinized sections of prefer/formalin-fixed tissue or PAP/DQ stained slides are incubated with monoclonal/polyclonal antibodies/oligonucleotide probes. Localization is made via biotin free immunoperoxidase method. Appropriate controls are performed and reacted as expected. Results on target cell population are indicated in the following table: RESULTS: ANTIBODY / CLONE RESULT Block B Her-2neu (CB11) negative (0) AE1-3 (AE1/AE3/PCK26) positive CK7 (OV-TL12/30) positive CK8 (17coifL76) positive CK20 (KS20.8) negative MOC-31 (4561) positive MLH-1 (M1) positive MSH2 (25D12) positive MSH6 (44) positive PMS2 (DQV3400) positive Ki-67 (30-9) positive, high P53 (DO-7) positive (missense mutation pattern) These tests were developed and their performance characteristics determined by [facility]. They may not have been cleared or approved by the U.S. Food and Drug Administration. The FDA has determined that such clearance or approval is not necessary. The above immunohistochemical/dualISH markers are ordered and reviewed by the Pathologist. INTERPRETATION: B. Esophageal mass, biopsy: Invasive adenocarcinoma. Result of Microsatellite Instability Study: Negative (no loss of mismatch protein; no microsatellite instability detected). SJ:hero 10/18/2023
[2023-10-14 00:27] LABS: Partial Thromboplast Time 66.2 Seconds (24.1-36.2)
--- NOTE | 2023-10-14 05:55 | EKG12_ITS ---
Test Reason : PRE-OP Blood Pressure : / mmHG Vent. Rate : 081 BPM Atrial Rate : 081 BPM P-R Int : 170 ms QRS Dur : 088 ms QT Int : 380 ms P-R-T Axes : 042 -07 015 degrees QTc Int : 441 ms Normal sinus rhythm Normal ECG When compared with ECG of 13-OCT-2023 10:56, MANUAL COMPARISON REQUIRED, DATA IS UNCONFIRMED Confirmed by BALBINA POWELL, BACILIO ([id number]), digital editor CAROLYN CARROLL ([id number]) on 10/15/2023 10:39:54 AM Referred By: ARSALAN Confirmed By:BACILIO MORTENSEN MD
[2023-10-14] MEDS: 0.9% Saline Lock 10 ML Syringe IV ×4 (06:04→21:08)
[2023-10-14] MEDS: HYDROmorphone 1 MG/ML Syringe IV ×4 (06:04→21:06)
[2023-10-14 06:20] LABS: Absolute Lymphocyte Count 1.16 X10^3/uL (0.83-4.51); Absolute Neutrophil Count 8.1 X10^3/uL (2.0-7.7); Basophil# 0.07 X10^3/uL; Basophil% 0.6 % (0-1); Eosinophil# 0.45 X10^3/uL; Eosinophils% 4.1 % (0-5); Hematocrit 38.3 % (40-54); Lymphocyte # 1.16 X10^3/ul (0.83-4.51); Lymphocyte % 10.7 % (19-41); Mean Corp Hgb Conc 33.9 g/dL (32-36); Mean Corpuscular Hgb 29.4 pg (27.0-32.0); Mean Corpuscular Volume 86.7 fL (80-94); Mean Platelet Vol. 9.7 fl (6.2-12.0); Monocyte# 1.01 X10^3/uL; Monocyte% 9.3 % (0-10); NRBC Flagged by Analyzer 0 % (0-5); Neutrophil # 8.13 X10^3/uL (2.7-7.7); Neutrophil % 74.7 % (47-70); Platelet Count 291 K/mm3 (150-450); RBC Distribution Width CV 13.2 % (11.6-14.6); RBC Distribution Width SD 41.5 fl (35.1-43.9); Red Blood Count 4.42 M/mm3 (4.6-6.2); White Blood Count 10.9 K/mm3 (4.4-11.0)
[2023-10-14 06:39] LABS: Partial Thromboplast Time 54.4 Seconds (24.1-36.2)
[2023-10-14 06:50] LABS: International Normalized Ratio 1.1; Prothrombin Time (Protime)PT. 13.9 SECONDS (11.7-14.9)
[2023-10-14 07:14] LABS: ALB/GLOB Ratio 0.8 RATIO (0.9-2.4); AST(SGOT) 13 U/L (15-37); Alanine Aminotransfer ALT/SGPT 15 U/L (16-61); Albumin, Serum 2.6 g/dL (3.2-5.0); Alkaline Phosphatase 131 U/L (45-117); Anion Gap 3 (5-15); BUN 25 mg/dL (7-18); BUN/Creat Ratio 32.3 RATIO (10-20); Calcium,Total 10.4 mg/dL (8.5-10.1); Chloride 109 mmol/L (98-107); Creatinine, Serum 0.77 mg/dL (0.70-1.30); EST Glomerular Filtration Rate 107 mL/min (>60); Est Glom Filt Rate - Afr Amer 130 mL/min (>60); Estimated Creatinine Clearance 100.07 ml/min; Globulin 3.3 g/dL (2.2-4.2); Glucose 89 mg/dL (74-106); Magnesium 1.9 mg/dL (1.6-2.6); Potassium 3.5 mmol/L (3.5-5.1); Protein, Total 5.9 g/dL (6.4-8.2); Sodium Level 142 mmol/L (136-145); Thyroid Stim Hormone (TSH) 0.18 uIU/mL (0.358-3.74)
[2023-10-14] MEDS: Lactated Ringers 1,000 ML 100 ML IV ×2 (08:06→21:06)
[2023-10-14] MEDS: Lactated Ringers 1,000 ML 15 ML IV (09:39)
[2023-10-14 10:34] LABS: PTHIN < 6.3 pg/mL (18.4-80.1)
--- NOTE | 2023-10-14 11:14 | OP.EGD_ITS ---
Patient Name: Sam Rock Procedure Date: 10/14/2023 10:46 AM Date of : 1960 Age: 63 Procedure: Upper GI endoscopy Indications: Dysphagia Providers: Leobardo Hernandez DO Medicines: Monitored Anesthesia Care Patient Profile: This is a 63 year old male. Refer to note in patient chart for documentation of history and physical. Patient has symptoms of acute dysphagia. Complications: No immediate complications. Procedure: Pre-Anesthesia Assessment: - Prior to the procedure, a History and Physical was performed, and patient medications and allergies were reviewed. The patient is competent. The risks and benefits of the procedure and the sedation options and risks were discussed with the patient. All questions were answered and informed consent was obtained. Patient identification and proposed procedure were verified by the physician in the pre-procedure area. Mental Status Examination: alert and oriented. Airway Examination: normal oropharyngeal airway and neck mobility. Respiratory Examination: clear to auscultation. CV Examination: normal. Prophylactic Antibiotics: The patient does not require prophylactic antibiotics. Prior Anticoagulants: The patient has taken no anticoagulant or antiplatelet agents. ASA Grade Assessment: III - A patient with severe systemic disease. After reviewing the risks and benefits, the patient was deemed in satisfactory condition to undergo the procedure. The anesthesia plan was to use monitored anesthesia care (MAC). Immediately prior to administration of medications, the patient was re-assessed for adequacy to receive sedatives. The heart rate, respiratory rate, oxygen saturations, blood pressure, adequacy of pulmonary ventilation, and response to care were monitored throughout the procedure. The physical status of the patient was re-assessed after the procedure. After obtaining informed consent, the endoscope was passed under direct vision. Throughout the procedure, the patient's blood pressure, pulse, and oxygen saturations were monitored continuously. The Endoscope was introduced through the mouth, and advanced to the second part of duodenum. The upper GI endoscopy was accomplished without difficulty. The patient tolerated the procedure well. Scope In: 10:57:00 AM Scope Out: 11:07:51 AM Total Procedure Duration Time 0 hours 10 minutes 51 seconds Findings: A large, ulcerating mass with bleeding and stigmata of recent bleeding was found in the lower third of the esophagus, 36 cm from the incisors. The mass was partially obstructing and circumferential. Biopsies were taken with a cold forceps for histology. Verification of patient identification for the specimen was done. Estimated blood loss was minimal. Area was successfully injected with 5 mL of a 0.1 mg/mL solution of epinephrine for drug delivery. Coagulation for hemostasis using argon plasma at 0.4 liters/minute and 25 rutledge was successful. Estimated blood loss was minimal. Moderate portal hypertensive gastropathy was found in the entire examined stomach. No gross lesions were noted in the second portion of the duodenum. 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 Biopsied. Injected. Treated with argon plasma coagulation (APC). - Portal hypertensive gastropathy. - No gross lesions in the second portion of the duodenum. Recommendation: - Return [facility] to [facility] for [facility] care. - Full liquid diet. - Continue present medications. - Await pathology results. Procedure Code(s): --- Professional --- 09209, 59, Esophagogastroduodenoscopy, flexible, transoral; with control of bleeding, any method 60797, Esophagogastroduodenoscopy, flexible, transoral; with biopsy, single or multiple 88526, 59,51, Esophagogastroduodenoscopy, flexible, transoral; with directed submucosal injection(s), any substance CPT copyright 2022 [employer] [place] [employer]. All rights reserved. The codes documented in this report are preliminary and upon cloth washer review may be revised to meet current compliance requirements. Leobardo Hernandez DO 10/14/2023 11:14:30 AM This report has been signed electronically. Number of Addenda: 0 Note Initiated On: 10/14/2023 10:46 AM
--- NOTE | 2023-10-14 11:15 | OP.CCLET_ITS ---
10/14/2023 [facility] Re : Upper GI endoscopy procedure for Sam [facility] This procedure was performed on September. 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 Biopsied. Injected. Treated with argon plasma coagulation (APC). - Portal hypertensive gastropathy. - No gross lesions in the second portion of the duodenum. Recommendations : - Return patient to [facility] for [facility] care. - Full liquid diet. - Continue present medications. - Await pathology results. My findings are described in the full procedure note, which is enclosed. If I can be of further assistance, please feel free to contact me at . Sincerely, Leobardo Hernandez, 10/14/2023 11:14:30 AM This report has been signed electronically.
[2023-10-14] MEDS: Magnesium Sulfate 2 GM in Dextrose 5%-Water (100mL Bag) 100 ML IV (12:01)
[2023-10-14] MEDS: Potassium Phosphate 30 MM in 0.9% Normal Saline (250mL Bag) 250 ML 42 MM IV (12:04)
[2023-10-14] MEDS: Lisinopril 20 MG Tablet PO (12:08)
[2023-10-14] MEDS: Carvedilol 25 MG Tablet PO ×2 (12:08→21:15)
[2023-10-14] MEDS: Polyethylene Glycol 3350 17 GM PACKET PO ×2 (12:08→21:13)
[2023-10-14] MEDS: Pantoprazole Sodium 40 MG in 0.9% Normal Saline (100mL MB+) 100 ML 330 MG IV ×2 (12:49→21:34)
--- NOTE | 2023-10-14 17:30 | CASEMGMT ---
RN?CM?CHANGE ROOM ATTENDANT?CM?to room to meet with patient for initial transition planning/care coordination?assessment.?RN?CM?introduced self and role at [facility].? Pt voices understanding and consents to?assessment?at this time.? Pt resting in bed in no distress at this time.? at bedside. Pt is A/O at this time and answers all questions appropriately.?? Care providers, pharmacy, and demographics verified/updated at this time. PCP: Yosvany VAUGHAN Specialists: none Preferred Pharmacy: [facility] Insurance: [facility] benefits only Prescription Benefit:?[facility] only Living Will/HPOA:?Pt does not currently have LW/HCPOA and declines info at this time.? Pt made aware that he can contact as an out-pt and make appt in the future if he decides he would like to talk with someone about this or would like to utilize [facility] social work for advanced directive completion.??? LNOK: , Kaylyn. Mother still living. Father is . No children. Living Arrangements: Lives w/his in 2-story home w/basement, where his office is and where he has been sleeping recently, on the couch or recliner. There is not a bathroom in the basement. Pt has been having difficulty w//stairs, especially the past 3 weeks. They do have a BSC he could use in the basement, if needed, and they state pt will probably start utilizing that in the basement when he returns home. 4 steps to enter home. Pt states he could do FFSU, if needed. Pt was independent up until about 3 weeks ago, but since then has been becoming more painful and having difficulty getting around. can assist as needed. Transportation:?Pt states drives self and states no transportation concerns at this time.? also drives. DME: ?States has the following DME:?BSC and cane. Per therapy, pt needs a walker @ d/c. states they pt's [id number] has one pt can borrow until he can get another one [facility]. She states if CM can start the process w/getting a walker, they would appreciate that. Pt and state no need for further DME at this time.? HHC/SNF: No hx of either. Pt denies need for HHC. Pt wishes to return home and states has no further concerns with going home at time of discharge. CM?to follow for any further discharge planning/needs.? Pt and voice no further concerns/needs at this time.? Advised them to ask for?CM?if any further questions/concerns/needs arise.? They voice understanding. PLAN:??Home w/. CM to assist w/ getting [facility] from [facility], if possible Cruz BSN?RN?CM
--- NOTE | 2023-10-14 17:35 | PCM.PN.HOSP ---
Reason for Visit Reason for Visit: Diagnoses Secondary malignant neoplasm of unspecified site (10/13/23) Elevated white blood cell count, unspecified (10/13/23) Unspecified severe protein-calorie malnutrition (10/13/23) Hypercalcemia (10/13/23) Dehydration (10/13/23) Hypokalemia (10/13/23) Other pulmonary embolism without acute cor pulmonale (10/13/23) Abdominal aortic aneurysm, without rupture, unspecified (10/13/23) Constipation, unspecified (10/13/23) Subjective Subjective Pt s/p EGD, going to try clear liquids, pt reports feeling much better while lying down than he did but when he gets up he has significant rib and front left leg pain that limit his mobility. Mental status much improved per pt and his Objective Data Objective Data Vital Signs: Vital Signs Temp Pulse Resp BP Pulse Ox O2 Del Method O2 Flow Rate 97.6 F L 80 14 142/92 H 98 Nasal Cannula 2 10/14/23 11:41 10/14/23 11:41 10/14/23 11:41 10/14/23 11:41 10/14/23 11:41 10/14/23 11:41 10/14/23 14:21 Oxygen Flow Rate (L/min) 2 Oxygen Delivery Method Nasal Cannula Weight: 78.3 kg Body Mass Index (BMI) 24.7 Intake & Output: Intake and Output for Last 24 Hours 10/12/23 10/13/23 10/14/23 23:59 23:59 23:59 Intake Total 2110 / 2110 1597.05 / 1597.05 Output Total 300 / 300 850 / 850 Balance 1810 / 1810 747.05 / 747.05 Medical Nutrition Assessment Dietitian: Malnutrition Criteria Met Start: 10/14/23 15:04 Freq: Status: Active Protocol: Document 10/14/23 15:04 AG (Rec: 10/14/23 15:04 AG Desktop) Nutrition Malnutrition Evidence of Malnutrition Exists Yes Malnutrition (severe): Chronic Evidenced By Suboptimal Energy Intake ( Severe),Weight Loss (Severe) Clinical Problem Chronic Disease or Condition Related Malnutrition Etiology severe, chronic malnutrition related to inadequate energy intake w/ metastatic disease Signs/Symptoms as evidenced by 22% wt loss x 3 months, estimated PO intake meeting <75% of estimated energy needs x 3 months Status Active Problem Recommendation Dietitian Recommendations/Changes full liquid diet per GI; will add 8oz Ensure Plus High Protein w/ each meal to provide additional calories/ protein. May need to consider nutrition support given need for full liquid diet, wt loss significant for malnutrition. Lab / Micro Data 10/14/23 05:50 10/14/23 05:50 Labs: Laboratory Results - last 24 hr 10/13/23 10:05: Vitamin D 25-Hydroxy 57.6, PTH Intact < 6.3 L 10/13/23 23:38: APTT 66.2 H 10/14/23 05:50: WBC 10.9, RBC 4.42 L, Hgb 13.0, Hct 38.3 L, MCV 86.7, MCH 29.4, MCHC 33.9, RDW Std Deviation 41.5, RDW Coeff of Graham 13.2, Plt Count 291, MPV 9.7, Immature Gran % (Auto) 0.600, Neut % (Auto) 74.7 H, Lymph % (Auto) 10.7 L, [place] % (Auto) 9.3, Eos % (Auto) 4.1, Baso % (Auto) 0.6, Absolute Neuts (auto) 8.1 H, Absolute Lymphs (auto) 1.16, Nucleated RBC % 0, PT 13.9, INR 1.1, APTT 54.4 H, Sodium 142, Potassium 3.5, Chloride 109 H, Carbon Dioxide 30.0, Anion Gap 3 L, BUN 25 H, Creatinine 0.77, Estim Creat Clear Calc 100.07, Est GFR (MDRD) Af Amer 130, Est GFR (MDRD) Non-Af 107, BUN/Creatinine Ratio 32.3 H, Glucose 89, Calcium 10.4 H, Phosphorus 2.0 L, Magnesium 1.9, Total Bilirubin 0.50, AST 13 L, ALT 15 L, Alkaline Phosphatase 131 H, Total Protein 5.9 L, Albumin 2.6 L, Globulin 3.3, Albumin/Globulin Ratio 0.8 L, TSH 0.18 L, Free T4 0.90 Micro: Microbiology 10/13/23 10:50 Mucosa - Nose Coronavirus COVID-19 PCR - Final Physical Exam Const alert and no apparent distress Constitutional Narrative: Oriented HEENT normocephalic and head/scalp atraumatic Eyes Eyes Narrative: EOM grossly intact, anicteric Neck supple Resp normal respiratory effort and clear to auscultation bilaterally Cardio regular rate and regular rhythm GI soft to palpation, non-tender and non-distended Extremity Extremity Narrative: No edema appreciated, pain over ribs and leg Neuro moves all extremities Neuro Narrative: No overt focal deficits appreciated Psych Psych Narrative: Cooperative Assessment & Plan Assessment/Plan (1) Hypercalcemia: (2) Metastatic cancer: (3) Bilateral pulmonary embolism: (4) Hypokalemia: (5) Leukocytosis: (6) Dehydration: (7) Severe malnutrition: (8) AAA (abdominal aortic aneurysm): (9) Constipation: PLAN: Plan Metastatic cancer of unknown primary -Highly suspect esophageal based on symptoms and imaging -CT of the chest abdomen and pelvis shows extensive skeletal metastatic disease with severe osteolytic destruction of several vertebrae and significant mount in the pelvics and ribs, extensive metastatic disease to the liver, small bilateral PE, esophageal thickening with small hiatal hernia, 3.3 focal abdominal aortic aneurysm and constipation -Protonix IV twice daily 40 mg -As needed pain medication -As needed antiemetics -IV fluids with LR at 100 cc/h -PSA is normal -GI consultation for EGD and biopsy for tissue diagnosis tomorrow if tissue diagnosis cannot be ascertained with EGD may need CT-guided biopsy of liver mass -Once tissue diagnosis is obtained will need oncology involvement to see if there is any chemotherapy as I do not think he is good to be surgical candidate 10/14: pt s/p EGD which demonstrated mass, biopsy obtained, will adjust regimen for pain control, awaiting bx results Hypercalcemia -Likely related to lytic lesions -Albumin is normal -Will hydrate and check intact PTH and vitamin D -may need further treatment but does appear to be had dehydrated so may come down with IV fluids alone -Repeat calcium level in a.m. -Hold home HCTZ as this may be exacerbating his hypercalcemia 10/14: Improving w/ fluids as is his mental status. Will continue fluids at this time Odynophagia -See above Hypokalemia -P.o. liquid potassium given -Recheck in a.m. -Check a.m. magnesium level 10/14: resolved Bilateral PE -Heparin drip with intent to transition to orals as able at discharge -Stop heparin drip at 6 AM for EGD later that morning -1/18: Resume heparin drip Dehydration -Patient appears mildly dehydrated -IV fluids -Recheck serum creatinine and BUN in the morning -Baseline unclear Constipation -Marked constipation noted on CT -Will start MiraLAX twice daily -May need enemas if no progress with twice daily MiraLAX Severe malnutrition -Patient with 80 pound weight loss in the past 6 to 8 months -Dietitian consulted -Will need supplements once p.o. diet allowed AAA -3.3 cm AAA noted on CT of the abdomen and pelvis -Outpatient follow-up as able GERD -IV PPI twice daily Hypertension -Continue home carvedilol -Continue home lisinopril but hold HCTZ due to hypercalcemia History of Alcohol abuse -Remote Tobacco abuse -Recommend cessation -Nicotine patch available -Suspect patient has COPD at baseline -As needed albuterol nebulizers -Incentive spirometer DVT prophylaxis -Patient is on heparin drip for diagnosed PE CODE STATUS -DNR CCA with no intubation as clarified on admission Time spent in the patient's overall evaluation,decision-making process, review of diagnostic data, adjustment of management, discussion with other providers, nursing nursing and ancillary staff involved in patient's care documentation, 35 minutes Capacity Legal Transmission Assembler Reflex Medical hold order details:: IF a medical hold is selected below, a suggested order for a MEDICAL HOLD will reflex upon signing the document. Next of kin: [place] law dictates a PRIORITY LIST for identifying legal decision-maker/legal next of kin in the following order (LNOK): 1st: The patient?s legal guardian, if any 2nd: The patient's spouse (if status is questionable, consult Risk Management) 3rd: The patient?s adult child(rae) (majority, if multiple children) 4th: The patient?s parents 5th: The patient?s adult siblings (majority, if multiple children siblings) Charges/Coding Visit Charges Inpatient E&M: 63907 Subs Hosp L2
[2023-10-15 00:29] LABS: Partial Thromboplast Time 60.9 Seconds (24.1-36.2)
[2023-10-15 02:30] VITALS: BP 126/90; PULSE 92; RESP 16; TEMP 36.6; O2SAT 97
[2023-10-15] MEDS: HYDROmorphone 1 MG/ML Syringe IV ×4 (03:58→23:01)
[2023-10-15] MEDS: Acetaminophen 500 MG Tablet 1000 MG PO ×3 (04:15→18:06)
[2023-10-15] MEDS: HEPARIN/D5w 25,000 UNITS 25,000 UNITS/250 ML IV.SOLN. 11 UNITS CONT INF (05:09)
[2023-10-15 05:50] VITALS: BMI 25.9
[2023-10-15] MEDS: Lactated Ringers 1,000 ML 100 ML IV (06:21)
[2023-10-15 07:07] LABS: Absolute Neutrophil Count 6.2 X10^3/uL (2.0-7.7); Basophil# 0.07 X10^3/uL; Basophil% 0.8 % (0-1); Eosinophil# 0.66 X10^3/uL; Eosinophils% 7.5 % (0-5); Hematocrit 34.8 % (40-54); Hemoglobin 11.6 g/dL (13.0-16.5); Lymphocyte % 10.3 % (19-41); Mean Corp Hgb Conc 33.3 g/dL (32-36); Mean Corpuscular Hgb 29.6 pg (27.0-32.0); Mean Corpuscular Volume 88.8 fL (80-94); Mean Platelet Vol. 9.9 fl (6.2-12.0); Monocyte# 0.92 X10^3/uL; Monocyte% 10.5 % (0-10); NRBC Flagged by Analyzer 0 % (0-5); Neutrophil # 6.17 X10^3/uL (2.7-7.7); Neutrophil % 70.2 % (47-70); Platelet Count 252 K/mm3 (150-450); RBC Distribution Width CV 13.6 % (11.6-14.6); RBC Distribution Width SD 44.1 fl (35.1-43.9); Red Blood Count 3.92 M/mm3 (4.6-6.2); White Blood Count 8.8 K/mm3 (4.4-11.0)
[2023-10-15 07:08] VITALS: O2SAT 97
[2023-10-15 07:37] LABS: ALB/GLOB Ratio 0.7 RATIO (0.9-2.4); AST(SGOT) 10 U/L (15-37); Alanine Aminotransfer ALT/SGPT 15 U/L (16-61); Albumin, Serum 2.3 g/dL (3.2-5.0); Alkaline Phosphatase 122 U/L (45-117); Anion Gap 2 (5-15); BUN 24 mg/dL (7-18); BUN/Creat Ratio 30.6 RATIO (10-20); Calcium,Total 10.6 mg/dL (8.5-10.1); Chloride 107 mmol/L (98-107); Creatinine, Serum 0.78 mg/dL (0.70-1.30); EST Glomerular Filtration Rate 106 mL/min (>60); Est Glom Filt Rate - Afr Amer 128 mL/min (>60); Estimated Creatinine Clearance 98.79 ml/min; Globulin 3.1 g/dL (2.2-4.2); Glucose 111 mg/dL (74-106); Potassium 3.8 mmol/L (3.5-5.1); Protein, Total 5.4 g/dL (6.4-8.2); Sodium Level 139 mmol/L (136-145)
[2023-10-15 08:25] LABS: Partial Thromboplast Time 61.6 Seconds (24.1-36.2)
[2023-10-15] MEDS: 0.9% Normal Saline (1000mL) 1,000 ML 75 ML IV ×2 (09:58→21:28)
[2023-10-15 10:05] VITALS: BP 122/75; PULSE 81; RESP 16; TEMP 36.7; O2SAT 94
[2023-10-15] MEDS: 0.9% Saline Lock 10 ML Syringe IV ×2 (10:13→16:39)
[2023-10-15] MEDS: Carvedilol 25 MG Tablet PO ×2 (10:31→20:44)
[2023-10-15] MEDS: Pantoprazole Sodium 40 MG in 0.9% Normal Saline (100mL MB+) 100 ML 330 MG IV ×2 (10:31→21:28)
[2023-10-15] MEDS: Polyethylene Glycol 3350 17 GM PACKET PO ×2 (10:31→20:44)
[2023-10-15] MEDS: Lisinopril 20 MG Tablet PO (10:32)
--- NOTE | 2023-10-15 12:05 | PN.HOSP_ITS ---
Reason for Visit Reason for Visit: Diagnoses Secondary malignant neoplasm of unspecified site (10/13/23) Elevated white blood cell count, unspecified (10/13/23) Unspecified severe protein-calorie malnutrition (10/13/23) Hypercalcemia (10/13/23) Dehydration (10/13/23) Hypokalemia (10/13/23) Other pulmonary embolism without acute cor pulmonale (10/13/23) Abdominal aortic aneurysm, without rupture, unspecified (10/13/23) Constipation, unspecified (10/13/23) Subjective Subjective Pt feeling better than yesterday, pain improving with IV meds, discussed trying to transition to PO regimen so pt can potentially go home while awaiting results if mobility can be increased and pain can be controlled within a reasonable window. Patient does report that since he has not smoked in several days he is having some increased secretions, not short of breath but is coughing a little bit more Objective Data Objective Data Vital Signs: Vital Signs Temp Pulse Resp BP Pulse Ox O2 Del Method O2 Flow Rate 98.1 F 81 16 122/75 H 94 Nasal Cannula 2 10/15/23 10:05 10/15/23 10:05 10/15/23 10:05 10/15/23 10:05 10/15/23 10:05 10/15/23 10:20 10/15/23 10:20 Oxygen Flow Rate (L/min) 2 Oxygen Delivery Method Nasal Cannula Weight: 82.1 kg Body Mass Index (BMI) 25.9 Intake & Output: Intake and Output for Last 24 Hours 10/13/23 10/14/23 10/15/23 23:59 23:59 23:59 Intake Total 2110 / 2110 2742.05 / 2742.05 831.95 / 831.95 Output Total 300 / 300 1100 / 1750 650 / 650 Balance 1810 / 1810 1642.05 / 992.05 181.95 / 181.95 Medical Nutrition Assessment Dietitian: Malnutrition Criteria Met Start: 10/14/23 15:04 Freq: Status: Active Protocol: Document 10/14/23 15:04 AG (Rec: 10/14/23 15:04 AG Desktop) Nutrition Malnutrition Evidence of Malnutrition Exists Yes Malnutrition (severe): Chronic Evidenced By Suboptimal Energy Intake ( Severe),Weight Loss (Severe) Clinical Problem Chronic Disease or Condition Related Malnutrition Etiology severe, chronic malnutrition related to inadequate energy intake w/ metastatic disease Signs/Symptoms as evidenced by 22% wt loss x 3 months, estimated PO intake meeting <75% of estimated energy needs x 3 months Status Active Problem Recommendation Dietitian Recommendations/Changes full liquid diet per GI; will add 8oz Ensure Plus High Protein w/ each meal to provide additional calories/ protein. May need to consider nutrition support given need for full liquid diet, wt loss significant for malnutrition. Lab / Micro Data 10/15/23 06:10 10/15/23 06:10 Labs: Laboratory Results - last 24 hr 10/15/23 00:05: APTT 60.9 H 10/15/23 06:10: WBC 8.8, RBC 3.92 L, Hgb 11.6 L, Hct 34.8 L, MCV 88.8, MCH 29.6, MCHC 33.3, RDW Std Deviation 44.1 H, RDW Coeff of Graham 13.6, Plt Count 252, MPV 9 .9, Immature Gran % (Auto) 0.700, Neut % (Auto) 70.2 H, Lymph % (Auto) 10.3 L, [place] % (Auto) 10.5 H, Eos % (Auto) 7.5 H, Baso % (Auto) 0.8, Absolute Neuts (auto) 6.2, Absolute Lymphs (auto) 0.90, Nucleated RBC % 0, APTT 61.6 H, Sodium 139, Potassium 3.8, Chloride 107, Carbon Dioxide 30.0, Anion Gap 2 L, BUN 24 H, Creatinine 0.78, Estim Creat Clear Calc 98.79, Est GFR (MDRD) Af Amer 128, Est GFR (MDRD) Non-Af 106, BUN/Creatinine Ratio 30.6 H, Glucose 111 H, Calcium 10.6 H, Total Bilirubin 0.50, AST 10 L, ALT 15 L, Alkaline Phosphatase 122 H, Total Protein 5.4 L, Albumin 2.3 L, Globulin 3.1, Albumin/Globulin Ratio 0.7 L Micro: Microbiology 10/13/23 10:50 Mucosa - Nose Coronavirus COVID-19 PCR - Final Physical Exam Narrative General: Alert, oriented, no apparent distress HEENT: Atraumatic, normocephalic Eyes: Anicteric, normal conjunctiva, extraocular movements grossly intact Neck: Supple Respiratory: Has some coarse breath sounds on right side, normal respiratory effort Cardiovascular: Regular rate and rhythm GI: Soft, nontender, nondistended Extremities: No edema Musculoskeletal: Moving all extremities Neuro: No overt focal neurological deficits Skin: No rashes appreciated Psych: Cooperative Assessment & Plan Assessment/Plan (1) Hypercalcemia: (2) Metastatic cancer: (3) Bilateral pulmonary embolism: (4) Hypokalemia: (5) Leukocytosis: (6) Dehydration: (7) Severe malnutrition: (8) AAA (abdominal aortic aneurysm): (9) Constipation: PLAN: Plan Metastatic cancer of unknown primary?suspected esophageal -Highly suspect esophageal based on symptoms and imaging -CT of the chest abdomen and pelvis shows extensive skeletal metastatic disease with severe osteolytic destruction of several vertebrae and significant mount in the pelvics and ribs, extensive metastatic disease to the liver, small bilateral PE, esophageal thickening with small hiatal hernia, 3.3 focal abdominal aortic aneurysm and constipation -Protonix IV twice daily 40 mg -As needed pain medication -As needed antiemetics -IV fluids with LR at 100 cc/h -PSA is normal -GI consultation for EGD and biopsy for tissue diagnosis tomorrow if tissue diagnosis cannot be ascertained with EGD may need CT-guided biopsy of liver mass -Once tissue diagnosis is obtained will need oncology involvement to see if there is any chemotherapy as I do not think he is good to be surgical candidate 10/14: pt s/p EGD which demonstrated mass, biopsy obtained, will adjust regimen for pain control, awaiting bx results -10/15: Patient with significant pain especially when moving, somewhat better whi le he is lying quietly, will attempt to transition to oral regimen in the event patient able to be mobile enough and have pain under enough control to go home while awaiting results of the given severity of symptoms and limitations in mobility suspect he may be here while awaiting pathology. Patient and verbalized understanding Hypercalcemia -Likely related to lytic lesions -Albumin is normal -Will hydrate and check intact PTH and vitamin D -may need further treatment but does appear to be had dehydrated so may come down with IV fluids alone -Repeat calcium level in a.m. -Hold home HCTZ as this may be exacerbating his hypercalcemia 10/14: Improving w/ fluids as is his mental status. Will continue fluids at this time -10/15: Fluids changed to normal saline Odynophagia -See above Hypokalemia -P.o. liquid potassium given -Recheck in a.m. -Check a.m. magnesium level 10/14: resolved Bilateral PE -Heparin drip with intent to transition to orals as able at discharge -Stop heparin drip at 6 AM for EGD later that morning -10/14: Resume heparin drip -10/15: On heparin drip, will transition to treatment dose Eliquis given patient has already had EGD with tissue sampling so should not need liver biopsy Dehydration -Patient appears mildly dehydrated -IV fluids -Recheck serum creatinine and BUN in the morning -Baseline unclear -10/15: Improved with IV fluids Constipation -Marked constipation noted on CT -Will start MiraLAX twice daily -May need enemas if no progress with twice daily MiraLAX -10/15: Continue to monitor for bowel movements Severe malnutrition -Patient with 80 pound weight loss in the past 6 to 8 months -Dietitian consulted -Will need supplements once p.o. diet allowed -10/15: Full liquid diet per GI AAA -3.3 cm AAA noted on CT of the abdomen and pelvis -Outpatient follow-up as able GERD -IV PPI twice daily Hypertension -Continue home carvedilol -Continue home lisinopril but hold HCTZ due to hypercalcemia History of Alcohol abuse -Remote Tobacco abuse -Recommend cessation -Nicotine patch available -Suspect patient has COPD at baseline -As needed albuterol nebulizers -Incentive spirometer DVT prophylaxis -Patient is on heparin drip for diagnosed PE CODE STATUS -DNR CCA with no intubation as clarified on admission Time spent in the patient's overall evaluation,decision-making process, review of diagnostic data, adjustment of management, discussion with other providers, nursing nursing and ancillary staff involved in patient's care documentation, 35 minutes Charges/Coding Visit Charges Inpatient E&M: 16324 Subs Hosp L2
[2023-10-15] MEDS: Lidocaine 5% Patch 1 PATCH TOPICAL (12:31)
--- NOTE | 2023-10-15 12:43 | CHAPLAIN ---
Type of Pastoral Visit _x__ Initial Visit ___ Follow-up Visit ___ On-call Visit ___ General Patient Visit ___ Spiritual Assessment ___ Family Conference ___ Bereavement ___ Rapid Response ___ Code Blue ___ Other (describe below) Pastoral Care Referral From _x__ Patient _x__ Family ___ Nurse ___ Physician ___ Director [facility] ___ Marketing Finance Specialist ___ Other (describe below) Sacrament/Intervention _x__ Active listening ___ Anointing ___ Pentecostalism ___ Bereavement ___ Communion _x__ Krystle exploration ___ _x__ Life review _x__ Prayer ___ Reconciliation ___ Sacrament of Sick _x__ Supportive presence ___ Wedding ___ Other (describe below) Pastoral Comments attempted three times yesterday to meet this patient but many others were conducting evaluations and therapies; today the pt and his were alone in the room and this newspaper reporter was able to sit at bedside and give time and attention to full support; pt is asked about his current situation, his feelings at learning diagnosis and since, his means of coping and finding positive support, and if krystle plays a part in his support; pt did state that he appreciates the up front and straight answer approach ; pt has hobbies that require physical ability that he has now lost but he did come up with ideas on how to spend time with meaningful activity; pt says that he has different approach to life and than most people but that he is open to visits and prayer; is asked about her needs and support; states that she is trying to process all that has been said in last 48 hours, and that she is more mandaeism and sees life and in a different way than patient who I believe is not ready to ; offer of future support given and pt and spouse welcome it as available
[2023-10-15] MEDS: oxyCODONE 5 MG Tablet 10 MG PO (13:44)
--- NOTE | 2023-10-15 15:37 | EX.PCM.PN.GI ---
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 The full pathology is pending. And involves the lower one third of the esophagus but does not extend into the stomach. Patient did not seem very surprised that he does have esophageal cancer. He is tolerating soft and liquids at this time. Objective Data Objective Data Vital Signs: Vital Signs Temp Pulse Resp BP Pulse Ox O2 Del Method O2 Flow Rate 98.1 F 81 16 122/75 H 94 Nasal Cannula 2 10/15/23 10:05 10/15/23 10:05 10/15/23 10:05 10/15/23 10:05 10/15/23 10:05 10/15/23 10:20 10/15/23 10:20 Oxygen Flow Rate (L/min) 2 Oxygen Delivery Method Nasal Cannula Weight: 180 lb 15.992 oz Body Mass Index (BMI) 25.9 Intake & Output: Intake and Output for Last 24 Hours 10/13/23 10/14/23 10/15/23 23:59 23:59 23:59 Intake Total 2110 / 2110 2742.05 / 2742.05 1347.70 / 1347.70 Output Total 300 / 300 1100 / 1750 975 / 975 Balance 1810 / 1810 1642.05 / 992.05 372.70 / 372.70 Medical Nutrition Assessment Dietitian: Malnutrition Criteria Met Start: 10/14/23 15:04 Freq: Status: Active Protocol: Document 10/14/23 15:04 AG (Rec: 10/14/23 15:04 Desktop) Nutrition Malnutrition Evidence of Malnutrition Exists Yes Malnutrition (severe): Chronic Evidenced By Suboptimal Energy Intake ( Severe),Weight Loss (Severe) Clinical Problem Chronic Disease or Condition Related Malnutrition Etiology severe, chronic malnutrition related to inadequate energy intake w/ metastatic disease Signs/Symptoms as evidenced by 22% wt loss x 3 months, estimated PO intake meeting <75% of estimated energy needs x 3 months Status Active Problem Recommendation Dietitian Recommendations/Changes full liquid diet per GI; will add 8oz Ensure Plus High Protein w/ each meal to provide additional calories/ protein. May need to consider nutrition support given need for full liquid diet, wt loss significant for malnutrition. Lab / Micro Data 10/15/23 06:10 10/15/23 06:10 Labs: Laboratory Results - last 24 hr 10/15/23 00:05: APTT 60.9 H 10/15/23 06:10: WBC 8.8, RBC 3.92 L, Hgb 11.6 L, Hct 34.8 L, MCV 88.8, MCH 29.6, MCHC 33.3, RDW Std Deviation 44.1 H, RDW Coeff of Graham 13.6, Plt Count 252, MPV 9.9, Immature Gran % (Auto) 0.700, Neut % (Auto) 70.2 H, Lymph % (Auto) 10.3 L, [place] % (Auto) 10.5 H, Eos % (Auto) 7.5 H, Baso % (Auto) 0.8, Absolute Neuts (auto) 6.2, Absolute Lymphs (auto) 0.90, Nucleated RBC % 0, APTT 61.6 H, Sodium 139, Potassium 3.8, Chloride 107, Carbon Dioxide 30.0, Anion Gap 2 L, BUN 24 H, Creatinine 0.78, Estim Creat Clear Calc 98.79, Est GFR (MDRD) Af Amer 128, Est GFR (MDRD) Non-Af 106, BUN/Creatinine Ratio 30.6 H, Glucose 111 H, Calcium 10.6 H, Total Bilirubin 0.50, AST 10 L, ALT 15 L, Alkaline Phosphatase 122 H, Total Protein 5.4 L, Albumin 2.3 L, Globulin 3.1, Albumin/Globulin Ratio 0.7 L Micro: Microbiology 10/13/23 10:50 Mucosa - Nose Coronavirus COVID-19 PCR - Final Physical Exam Narrative General: Alert, oriented, no apparent distress HEENT: Atraumatic, normocephalic Eyes: Anicteric, normal conjunctiva, extraocular movements grossly intact Neck: Supple Respiratory: Has some coarse breath sounds on right side, normal respiratory effort Cardiovascular: Regular rate and rhythm GI: Soft, nontender, nondistended Extremities: No edema Musculoskeletal: Moving all extremities Neuro: No overt focal neurological deficits Skin: No rashes appreciated Psych: Cooperative Assessment & Plan Assessment/Plan (1) Hypercalcemia: (2) Metastatic cancer: (3) Bilateral pulmonary embolism: (4) Hypokalemia: (5) Leukocytosis: (6) Dehydration: (7) Severe malnutrition: (8) AAA (abdominal aortic aneurysm): (9) Constipation: PLAN: Plan 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 I think he would be a good stent candidate. However it depends what radiation oncology and oncology thinks. I do not think he is a surgical candidate at this time due to the metastasis already seen to his liver but I will leave that up to oncology. Bilateral PE -on Heparin drip Severe malnutrition -Patient with 80 pound weight loss in the past 6 to 8 months Charges/Coding Visit Charges Inpatient E&M: 32557 Subs Hosp L3
[2023-10-15 16:26] VITALS: BP 118/71; PULSE 91; RESP 16; TEMP 36.7; O2SAT 95
[2023-10-15] MEDS: Ensure Plus High Protein 120 ML LIQUID PO (16:39)
[2023-10-15 20:37] VITALS: BP 128/86; PULSE 86; RESP 16; TEMP 36.6; O2SAT 95
[2023-10-15] MEDS: APIXABAN 5 MG TABLET PO (20:43)
[2023-10-16] MEDS: Acetaminophen 500 MG Tablet 1000 MG PO ×3 (03:03→18:52)
[2023-10-16] MEDS: oxyCODONE 5 MG Tablet 10 MG PO (05:02)
[2023-10-16 06:00] VITALS: BMI 26.9
[2023-10-16 07:38] LABS: Absolute Lymphocyte Count 0.82 X10^3/uL (0.83-4.51); Absolute Neutrophil Count 5.6 X10^3/uL (2.0-7.7); Basophil# 0.05 X10^3/uL; Basophil% 0.6 % (0-1); Eosinophils% 7.7 % (0-5); Hematocrit 34.4 % (40-54); Hemoglobin 11.7 g/dL (13.0-16.5); Lymphocyte # 0.82 X10^3/ul (0.83-4.51); Lymphocyte % 10.6 % (19-41); Mean Corpuscular Hgb 30.2 pg (27.0-32.0); Mean Corpuscular Volume 88.7 fL (80-94); Monocyte# 0.63 X10^3/uL; Monocyte% 8.1 % (0-10); NRBC Flagged by Analyzer 0 % (0-5); Neutrophil # 5.64 X10^3/uL (2.7-7.7); Neutrophil % 72.6 % (47-70); Platelet Count 240 K/mm3 (150-450); RBC Distribution Width CV 13.5 % (11.6-14.6); RBC Distribution Width SD 43.9 fl (35.1-43.9); Red Blood Count 3.88 M/mm3 (4.6-6.2); White Blood Count 7.8 K/mm3 (4.4-11.0)
[2023-10-16 07:40] VITALS: O2SAT 94
[2023-10-16 07:54] LABS: ALB/GLOB Ratio 0.8 RATIO (0.9-2.4); AST(SGOT) 14 U/L (15-37); Alanine Aminotransfer ALT/SGPT 19 U/L (16-61); Albumin, Serum 2.4 g/dL (3.2-5.0); Alkaline Phosphatase 144 U/L (45-117); Anion Gap 3 (5-15); BUN 22 mg/dL (7-18); BUN/Creat Ratio 26.6 RATIO (10-20); Calcium,Total 10.2 mg/dL (8.5-10.1); Chloride 106 mmol/L (98-107); Creatinine, Serum 0.83 mg/dL (0.70-1.30); EST Glomerular Filtration Rate 99 mL/min (>60); Est Glom Filt Rate - Afr Amer 120 mL/min (>60); Estimated Creatinine Clearance 92.84 ml/min; Globulin 3.1 g/dL (2.2-4.2); Glucose 141 mg/dL (74-106); Potassium 3.9 mmol/L (3.5-5.1); Protein, Total 5.5 g/dL (6.4-8.2); Sodium Level 136 mmol/L (136-145)
[2023-10-16 08:43] VITALS: BP 140/89; PULSE 71; RESP 16; TEMP 37; O2SAT 94
[2023-10-16] MEDS: Ensure Clear 120 ML Liquid PO ×3 (08:54→17:34)
[2023-10-16] MEDS: Ensure Plus High Protein 120 ML LIQUID PO ×3 (08:55→17:33)
[2023-10-16] MEDS: APIXABAN 5 MG TABLET PO ×2 (08:55→20:24)
[2023-10-16] MEDS: Carvedilol 25 MG Tablet PO ×2 (08:55→20:25)
[2023-10-16] MEDS: Polyethylene Glycol 3350 17 GM PACKET PO ×2 (08:56→20:25)
[2023-10-16] MEDS: Lidocaine 5% Patch 1 PATCH TOPICAL (08:56)
[2023-10-16] MEDS: HYDROmorphone 1 MG/ML Syringe IV (08:57)
[2023-10-16] MEDS: Pantoprazole Sodium 40 MG in 0.9% Normal Saline (100mL MB+) 100 ML 330 MG IV ×2 (08:57→20:31)
[2023-10-16] MEDS: 0.9% Saline Lock 10 ML Syringe IV ×2 (08:58→20:25)
[2023-10-16] MEDS: Lisinopril 20 MG Tablet PO (09:14)
--- NOTE | 2023-10-16 09:23 | PCM.PN.HOSP ---
Reason for Visit Reason for Visit: Diagnoses Secondary malignant neoplasm of unspecified site (10/13/23) Elevated white blood cell count, unspecified (10/13/23) Unspecified severe protein-calorie malnutrition (10/13/23) Hypercalcemia (10/13/23) Dehydration (10/13/23) Hypokalemia (10/13/23) Other pulmonary embolism without acute cor pulmonale (10/13/23) Abdominal aortic aneurysm, without rupture, unspecified (10/13/23) Constipation, unspecified (10/13/23) Subjective Subjective Continues to have pain, oral medication not working as well as IV but does have some effect and work slightly longer, mobility slowly improving but patient still having significant pain Objective Data Objective Data Vital Signs: Vital Signs Temp Pulse Resp BP Pulse Ox O2 Del Method O2 Flow Rate 98.6 F 71 16 140/89 H 94 Room Air 2 10/16/23 08:43 10/16/23 08:43 10/16/23 08:43 10/16/23 08:43 10/16/23 08:43 10/16/23 08:43 10/15/23 10:20 Oxygen Flow Rate (L/min) 2 Oxygen Delivery Method Room Air Weight: 85.3 kg Body Mass Index (BMI) 26.9 Intake & Output: Intake and Output for Last 24 Hours 10/14/23 10/15/23 10/16/23 23:59 23:59 23:59 Intake Total 2742.05 / 2742.05 2347.70 / 2347.70 1234.10 / 1234.10 Output Total 1100 / 1750 1625 / 1975 900 / 900 Balance 1642.05 / 992.05 722.70 / 372.70 334.10 / 334.10 Medical Nutrition Assessment Dietitian: Malnutrition Criteria Met Start: 10/14/23 15:04 Freq: Status: Active Protocol: Document 10/14/23 15:04 AG (Rec: 10/14/23 15:04 AG Desktop) Nutrition Malnutrition Evidence of Malnutrition Exists Yes Malnutrition (severe): Chronic Evidenced By Suboptimal Energy Intake ( Severe),Weight Loss (Severe) Clinical Problem Chronic Disease or Condition Related Malnutrition Etiology severe, chronic malnutrition related to inadequate energy intake w/ metastatic disease Signs/Symptoms as evidenced by 22% wt loss x 3 months, estimated PO intake meeting <75% of estimated energy needs x 3 months Status Active Problem Recommendation Dietitian Recommendations/Changes full liquid diet per GI; will add 8oz Ensure Plus High Protein w/ each meal to provide additional calories/ protein. May need to consider nutrition support given need for full liquid diet, wt loss significant for malnutrition. Lab / Micro Data 10/16/23 06:54 10/16/23 06:54 Labs: Laboratory Results - last 24 hr 10/16/23 06:54: WBC 7.8, RBC 3.88 L, Hgb 11.7 L, Hct 34.4 L, MCV 88.7, MCH 30.2, MCHC 34.0, RDW Std Deviation 43.9, RDW Coeff of [place] 13.5, Plt Count 240, MPV 10.0, Immature Gran % (Auto) 0.400, Neut % (Auto) 72.6 H, Lymph % (Auto) 10.6 L, [place] % (Auto) 8.1, Eos % (Auto) 7.7 H, Baso % (Auto) 0.6, Absolute Neuts (auto) 5.6, Absolute Lymphs (auto) 0.82 L, Nucleated RBC % 0, APTT 35.0, Sodium 136, Potassium 3.9, Chloride 106, Carbon Dioxide 27.0, Anion Gap 3 L, BUN 22 H, Creatinine 0.83, Estim Creat Clear Calc 92.84, Est GFR (MDRD) Af Amer 120, Est GFR (MDRD) Non-Af 99, BUN/Creatinine Ratio 26.6 H, Glucose 141 H, Calcium 10.2 H, Total Bilirubin 0.50, AST 14 L, ALT 19, Alkaline Phosphatase 144 H, Total Protein 5.5 L, Albumin 2.4 L, Globulin 3.1, Albumin/Globulin Ratio 0.8 L Micro: Microbiology 10/13/23 10:50 Mucosa - Nose Coronavirus COVID-19 PCR - Final Physical Exam Narrative General: Alert, oriented, no apparent distress HEENT: Atraumatic, normocephalic Eyes: Anicteric, normal conjunctiva, extraocular movements grossly intact Neck: Supple Respiratory: Has some coarse breath sounds on right side, normal respiratory effort Cardiovascular: Regular rate and rhythm GI: Soft, nontender, nondistended Extremities: No edema Musculoskeletal: Moving all extremities, has some pain on palpation over right side of rib cage Neuro: No overt focal neurological deficits Skin: No rashes appreciated Psych: Cooperative Assessment & Plan Assessment/Plan (1) Hypercalcemia: (2) Metastatic cancer: (3) Bilateral pulmonary embolism: (4) Hypokalemia: (5) Leukocytosis: (6) Dehydration: (7) Severe malnutrition: (8) AAA (abdominal aortic aneurysm): (9) Constipation: PLAN: Plan Metastatic cancer of unknown primary?suspected esophageal -Highly suspect esophageal based on symptoms and imaging -CT of the chest abdomen and pelvis shows extensive skeletal metastatic disease with severe osteolytic destruction of several vertebrae and significant mount in the pelvics and ribs, extensive metastatic disease to the liver, small bilateral PE, esophageal thickening with small hiatal hernia, 3.3 focal abdominal aortic aneurysm and constipation -Protonix IV twice daily 40 mg -As needed pain medication -As needed antiemetics -IV fluids with LR at 100 cc/h -PSA is normal -GI consultation for EGD and biopsy for tissue diagnosis tomorrow if tissue diagnosis cannot be ascertained with EGD may need CT-guided biopsy of liver mass -Once tissue diagnosis is obtained will need oncology involvement to see if there is any chemotherapy as I do not think he is good to be surgical candidate 10/14: pt s/p EGD which demonstrated mass, biopsy obtained, will adjust regimen for pain control, awaiting bx results -10/15: Patient with significant pain especially when moving, somewhat better while he is lying quietly, will attempt to transition to oral regimen in the event patient able to be mobile enough and have pain under enough control to go home while awaiting results of the given severity of symptoms and limitations in mobility suspect he may be here while awaiting pathology. Patient and verbalized understanding -10/16: Mobility and pain control improving, suspect we may have pathology prior to patient being ready for DC home, had discussed with oncology and once pathology available we will formally consult, may also need radiation oncology, possibly a stent candidate pending oncology eval, will adjust pain medications, PT/OT Hypercalcemia -Likely related to lytic lesions -Albumin is normal -Will hydrate and check intact PTH and vitamin D -may need further treatment but does appear to be had dehydrated so may come down with IV fluids alone -Repeat calcium level in a.m. -Hold home HCTZ as this may be exacerbating his hypercalcemia 10/14: Improving w/ fluids as is his mental status. Will continue fluids at this time -10/15: Fluids changed to normal saline -10/16: Calcium only mildly elevated at 10.2, suspect patient getting little bit fluid overloaded so fluids have been DC'd, can consider Lasix. Patient asymptomatic at this time Odynophagia -See above Hypokalemia -P.o. liquid potassium given -Recheck in a.m. -Check a.m. magnesium level 10/14: resolved Bilateral PE -Heparin drip with intent to transition to orals as able at discharge -Stop heparin drip at 6 AM for EGD later that morning -10/14: Resume heparin drip -10/15: On heparin drip, will transition to treatment dose Eliquis given patient has already had EGD with tissue sampling so should not need liver biopsy -10/16: Tolerating Eliquis thus far Dehydration -Patient appears mildly dehydrated -IV fluids -Recheck serum creatinine and BUN in the morning -Baseline unclear -10/15: Improved with IV fluids Constipation -Marked constipation noted on CT -Will start MiraLAX twice daily -May need enemas if no progress with twice daily MiraLAX -10/15: Continue to monitor for bowel movements Severe malnutrition -Patient with 80 pound weight loss in the past 6 to 8 months -Dietitian consulted -Will need supplements once p.o. diet allowed -10/15: Full liquid diet per GI AAA -3.3 cm AAA noted on CT of the abdomen and pelvis -Outpatient follow-up as able GERD -IV PPI twice daily Hypertension -Continue home carvedilol -Continue home lisinopril but hold HCTZ due to hypercalcemia History of Alcohol abuse -Remote Tobacco abuse -Recommend cessation -Nicotine patch available -Suspect patient has COPD at baseline -As needed albuterol nebulizers -Incentive spirometer DVT prophylaxis -Patient is on heparin drip for diagnosed PE CODE STATUS -DNR CCA with no intubation as clarified on admission Time spent in the patient's overall evaluation,decision-making process, review of diagnostic data, adjustment of management, discussion with other providers, nursing nursing and ancillary staff involved in patient's care documentation, 35 minutes Charges/Coding Visit Charges Inpatient E&M: 89682 Subs Hosp L2
[2023-10-16] MEDS: oxyCODONE 5 MG Tablet 15 MG PO ×3 (11:55→20:23)
[2023-10-16 14:32] VITALS: BP 126/75; PULSE 79; RESP 16; TEMP 37.2; O2SAT 96
[2023-10-16 20:20] VITALS: BP 124/75; PULSE 79; RESP 16; TEMP 36.8; O2SAT 95
[2023-10-17] MEDS: oxyCODONE 5 MG Tablet 15 MG PO ×6 (01:22→23:38)
[2023-10-17 03:00] VITALS: BP 119/72; PULSE 79; RESP 16; TEMP 37.1; O2SAT 95
[2023-10-17 04:09] VITALS: BMI 27.2
[2023-10-17] MEDS: Ensure Clear 120 ML Liquid PO ×3 (07:58→16:26)
[2023-10-17] MEDS: Ensure Plus High Protein 120 ML LIQUID PO ×3 (07:58→16:27)
[2023-10-17] MEDS: Carvedilol 25 MG Tablet PO ×2 (07:59→20:48)
[2023-10-17] MEDS: Pantoprazole Sodium 40 MG in 0.9% Normal Saline (100mL MB+) 100 ML 330 MG IV ×2 (07:59→20:48)
[2023-10-17] MEDS: Lisinopril 20 MG Tablet PO (07:59)
[2023-10-17] MEDS: Polyethylene Glycol 3350 17 GM PACKET PO ×2 (08:00→20:48)
[2023-10-17] MEDS: APIXABAN 5 MG TABLET PO ×2 (08:00→20:48)
[2023-10-17] MEDS: Lidocaine 5% Patch 1 PATCH TOPICAL (08:01)
[2023-10-17 08:30] LABS: Absolute Lymphocyte Count 0.82 X10^3/uL (0.83-4.51); Absolute Neutrophil Count 7.4 X10^3/uL (2.0-7.7); Basophil# 0.06 X10^3/uL; Basophil% 0.6 % (0-1); Eosinophil# 0.69 X10^3/uL; Eosinophils% 6.9 % (0-5); Hematocrit 37.7 % (40-54); Hemoglobin 12.3 g/dL (13.0-16.5); Lymphocyte # 0.82 X10^3/ul (0.83-4.51); Lymphocyte % 8.2 % (19-41); Mean Corp Hgb Conc 32.6 g/dL (32-36); Mean Corpuscular Hgb 29.4 pg (27.0-32.0); Mean Corpuscular Volume 90.2 fL (80-94); Mean Platelet Vol. 9.8 fl (6.2-12.0); Monocyte# 1.01 X10^3/uL; NRBC Flagged by Analyzer 0 % (0-5); Neutrophil # 7.42 X10^3/uL (2.7-7.7); Neutrophil % 73.8 % (47-70); Platelet Count 271 K/mm3 (150-450); RBC Distribution Width CV 13.4 % (11.6-14.6); RBC Distribution Width SD 44.1 fl (35.1-43.9); Red Blood Count 4.18 M/mm3 (4.6-6.2); White Blood Count 10.1 K/mm3 (4.4-11.0)
[2023-10-17 08:46] LABS: ALB/GLOB Ratio 0.8 RATIO (0.9-2.4); AST(SGOT) 13 U/L (15-37); Alanine Aminotransfer ALT/SGPT 20 U/L (16-61); Albumin, Serum 2.7 g/dL (3.2-5.0); Alkaline Phosphatase 167 U/L (45-117); Anion Gap 1 (5-15); BUN 20 mg/dL (7-18); BUN/Creat Ratio 22.1 RATIO (10-20); Calcium,Total 10.8 mg/dL (8.5-10.1); Chloride 104 mmol/L (98-107); EST Glomerular Filtration Rate 90 mL/min (>60); Est Glom Filt Rate - Afr Amer 109 mL/min (>60); Estimated Creatinine Clearance 85.62 ml/min; Globulin 3.5 g/dL (2.2-4.2); Glucose 114 mg/dL (74-106); Potassium 4.3 mmol/L (3.5-5.1); Protein, Total 6.2 g/dL (6.4-8.2); Sodium Level 136 mmol/L (136-145)
[2023-10-17 09:00] VITALS: BP 150/91; PULSE 94; RESP 16; TEMP 37.2; O2SAT 95
[2023-10-17] MEDS: Acetaminophen 500 MG Tablet 1000 MG PO ×2 (10:20→18:31)
--- NOTE | 2023-10-17 11:51 | PN.HOSP_ITS ---
Reason for Visit Reason for Visit: Diagnoses Secondary malignant neoplasm of unspecified site (10/13/23) Elevated white blood cell count, unspecified (10/13/23) Unspecified severe protein-calorie malnutrition (10/13/23) Hypercalcemia (10/13/23) Dehydration (10/13/23) Hypokalemia (10/13/23) Other pulmonary embolism without acute cor pulmonale (10/13/23) Abdominal aortic aneurysm, without rupture, unspecified (10/13/23) Constipation, unspecified (10/13/23) Subjective Subjective Pain control improving but still continues to have significant and limiting pain, denies any changes in his breathing, difficulty to assess weakness due to pain limitations Objective Data Objective Data Vital Signs: Vital Signs Temp Pulse Resp BP Pulse Ox O2 Del Method O2 Flow Rate 98.9 F 94 16 150/91 H 95 Room Air 2 10/17/23 09:00 10/17/23 09:00 10/17/23 09:00 10/17/23 09:00 10/17/23 09:00 10/17/23 09:35 10/15/23 10:20 Oxygen Flow Rate (L/min) 2 Oxygen Delivery Method Room Air Weight: 86.1 kg Body Mass Index (BMI) 27.2 Intake & Output: Intake and Output for Last 24 Hours 10/15/23 10/16/23 10/17/23 23:59 23:59 23:59 Intake Total 2347.70 / 2347.70 1454.10 / 1454.10 110 / 110 Output Total 1625 / 1975 1350 / 1650 300 / 300 Balance 722.70 / 372.70 104.10 / -195.90 -190 / -190 Medical Nutrition Assessment Dietitian: Malnutrition Criteria Met Start: 10/14/23 15:04 Freq: Status: Active Protocol: Document 10/14/23 15:04 AG (Rec: 10/14/23 15:04 AG Desktop) Nutrition Malnutrition Evidence of Malnutrition Exists Yes Malnutrition (severe): Chronic Evidenced By Suboptimal Energy Intake ( Severe),Weight Loss (Severe) Clinical Problem Chronic Disease or Condition Related Malnutrition Etiology severe, chronic malnutrition related to inadequate energy intake w/ metastatic disease Signs/Symptoms as evidenced by 22% wt loss x 3 months, estimated PO intake meeting <75% of estimated energy needs x 3 months Status Active Problem Recommendation Dietitian Recommendations/Changes full liquid diet per GI; will add 8oz Ensure Plus High Protein w/ each meal to provide additional calories/ protein. May need to consider nutrition support given need for full liquid diet, wt loss significant for malnutrition. Lab / Micro Data 10/17/23 08:09 10/17/23 08:09 Labs: Laboratory Results - last 24 hr 10/17/23 08:09: WBC 10.1, RBC 4.18 L, Hgb 12.3 L, Hct 37.7 L, MCV 90.2, MCH 29.4, MCHC 32.6, RDW Std Deviation 44.1 H, RDW Coeff of [place] 13.4, Plt Count 271, MPV 9.8, Immature Gran % (Auto) 0.500, Neut % (Auto) 73.8 H, Lymph % (Auto) 8.2 L, [place] % (Auto) 10.0, Eos % (Auto) 6.9 H, Baso % (Auto) 0.6, Absolute Neuts (auto) 7.4, Absolute Lymphs (auto) 0.82 L, Nucleated RBC % 0, Sodium 136, Potassium 4.3, Chloride 104, Carbon Dioxide 31.0, Anion Gap 1 L, BUN 20 H, Creatinine 0.90, Estim Creat Clear Calc 85.62, Est GFR (MDRD) Af Amer 109, Est GFR (MDRD) Non-Af 90, BUN/Creatinine Ratio 22.1 H, Glucose 114 H, Calcium 10.8 H , Total Bilirubin 0.50, AST 13 L, ALT 20, Alkaline Phosphatase 167 H, Total Protein 6.2 L, Albumin 2.7 L, Globulin 3.5, Albumin/Globulin Ratio 0.8 L Micro: Microbiology 10/13/23 10:50 Mucosa - Nose Coronavirus COVID-19 PCR - Final Physical Exam Narrative General: Alert, oriented, no apparent distress HEENT: Atraumatic, normocephalic Eyes: Anicteric, normal conjunctiva, extraocular movements grossly intact Neck: Supple Respiratory: Has some coarse breath sounds on right side but some seem to be transmitted upper airway sounds, normal respiratory effort Cardiovascular: Regular rate and rhythm GI: Soft, nontender, nondistended Extremities: No edema Musculoskeletal: Moving all extremities, has some pain on palpation over right side of rib cage and left anterior thigh Neuro: No overt focal neurological deficits Skin: No rashes appreciated Psych: Cooperative Assessment & Plan Assessment/Plan (1) Hypercalcemia: (2) Metastatic cancer: (3) Bilateral pulmonary embolism: (4) Hypokalemia: (5) Leukocytosis: (6) Dehydration: (7) Severe malnutrition: (8) AAA (abdominal aortic aneurysm): (9) Constipation: PLAN: Plan Metastatic cancer of unknown primary?suspected esophageal -Highly suspect esophageal based on symptoms and imaging -CT of the chest abdomen and pelvis shows extensive skeletal metastatic disease with severe osteolytic destruction of several vertebrae and significant mount in the pelvics and ribs, extensive metastatic disease to the liver, small bilateral PE, esophageal thickening with small hiatal hernia, 3.3 focal abdominal aortic aneurysm and constipation -Protonix IV twice daily 40 mg -As needed pain medication -As needed antiemetics -IV fluids with LR at 100 cc/h -PSA is normal -GI consultation for EGD and biopsy for tissue diagnosis tomorrow if tissue diagnosis cannot be ascertained with EGD may need CT-guided biopsy of liver mass -Once tissue diagnosis is obtained will need oncology involvement to see if there is any chemotherapy as I do not think he is good to be surgical candidate 10/14: pt s/p EGD which demonstrated mass, biopsy obtained, will adjust regimen for pain control, awaiting bx results -10/15: Patient with significant pain especially when moving, somewhat better while he is lying quietly, will attempt to transition to oral regimen in the event patient able to be mobile enough and have pain under enough control to go home while awaiting results of the given severity of symptoms and limitations in mobility suspect he may be here while awaiting pathology. Patient and verbalized understanding -10/16: Mobility and pain control improving, suspect we may have pathology prior to patient being ready for DC home, had discussed with oncology and once pathology available we will formally consult, may also need radiation oncology, possibly a stent candidate pending oncology eval, will adjust pain medications, PT/OT -10/17: Initial plan had been to improve pain control so patient can go home and follow-up with oncology outpatient for further management and pathology results however pain control improving but still significantly limiting, oncology consult placed for the a.m., may end up needing radiation oncology as well. GI following, may need esophageal stent but further decision after onc evaluation. Patient still on full liquid diet with his esophageal mass Hypercalcemia -Likely related to lytic lesions -Albumin is normal -Will hydrate and check intact PTH and vitamin D -may need further treatment but does appear to be had dehydrated so may come down with IV fluids alone -Repeat calcium level in a.m. -Hold home HCTZ as this may be exacerbating his hypercalcemia 10/14: Improving w/ fluids as is his mental status. Will continue fluids at this time -10/15: Fluids changed to normal saline -10/16: Calcium only mildly elevated at 10.2, suspect patient getting little bit fluid overloaded so fluids have been DC'd, can consider Lasix. Patient asymptomatic at this time -10/17: Asymptomatic, will give additional gentle hydration, may need to consider bisphosphonate as patient may have continued bone resorption but given hypercalcemia not severe and patient asymptomatic we will recheck in the a.m. Odynophagia -See above Hypokalemia -P.o. liquid potassium given -Recheck in a.m. -Check a.m. magnesium level 10/14: resolved Bilateral PE -Heparin drip with intent to transition to orals as able at discharge -Stop heparin drip at 6 AM for EGD later that morning -10/14: Resume heparin drip -10/15: On heparin drip, will transition to treatment dose Eliquis given patient has already had EGD with tissue sampling so should not need liver biopsy -10/16: Tolerating Eliquis thus far -10/17: Continue Eliquis, hemoglobin stable Dehydration -Patient appears mildly dehydrated -IV fluids -Recheck serum creatinine and BUN in the morning -Baseline unclear -10/15: Improved with IV fluids -10/17: Continue to encourage oral intake Constipation -Marked constipation noted on CT -Will start MiraLAX twice daily -May need enemas if no progress with twice daily MiraLAX -10/15: Continue to monitor for bowel movements Severe malnutrition -Patient with 80 pound weight loss in the past 6 to 8 months -Dietitian consulted -Will need supplements once p.o. diet allowed -10/15: Full liquid diet per GI AAA -3.3 cm AAA noted on CT of the abdomen and pelvis -Outpatient follow-up as able GERD -IV PPI twice daily Hypertension -Continue home carvedilol -Continue home lisinopril but hold HCTZ due to hypercalcemia History of Alcohol abuse -Remote Tobacco abuse -Recommend cessation -Nicotine patch available -Suspect patient has COPD at baseline -As needed albuterol nebulizers -Incentive spirometer DVT prophylaxis -Eliquis CODE STATUS -DNR CCA with no intubation as clarified on admission Time spent in the patient's overall evaluation,decision-making process, review of diagnostic data, adjustment of management, discussion with other providers, n ursing nursing and ancillary staff involved in patient's care documentation, 41 minutes Charges/Coding Visit Charges Inpatient E&M: 35405 Subs Hosp L2
[2023-10-17 15:28] VITALS: BP 124/86; PULSE 91; RESP 16; TEMP 37; O2SAT 94
[2023-10-17] MEDS: 0.9% Normal Saline (1000mL) 1,000 ML 50 ML IV (16:26)
[2023-10-17 20:47] VITALS: BP 104/65; PULSE 82; RESP 18; TEMP 36.3; O2SAT 96
[2023-10-17] MEDS: 0.9% Saline Lock 10 ML Syringe IV (20:49)
[2023-10-18 01:35] VITALS: BMI 27.8
[2023-10-18 03:20] VITALS: BP 105/67; PULSE 76; RESP 16; TEMP 36.4; O2SAT 96
[2023-10-18] MEDS: Acetaminophen 500 MG Tablet 1000 MG PO ×3 (03:21→18:26)
[2023-10-18] MEDS: oxyCODONE 5 MG Tablet 15 MG PO ×5 (04:25→22:24)
[2023-10-18 04:32] LABS: Absolute Neutrophil Count 8.4 X10^3/uL (2.0-7.7); Basophil# 0.07 X10^3/uL; Basophil% 0.6 % (0-1); Eosinophil# 0.65 X10^3/uL; Eosinophils% 5.8 % (0-5); Hemoglobin 11.4 g/dL (13.0-16.5); Lymphocyte % 7.1 % (19-41); Mean Corp Hgb Conc 33.5 g/dL (32-36); Mean Corpuscular Hgb 30.1 pg (27.0-32.0); Mean Corpuscular Volume 89.7 fL (80-94); Mean Platelet Vol. 9.8 fl (6.2-12.0); Monocyte# 1.31 X10^3/uL; Monocyte% 11.6 % (0-10); NRBC Flagged by Analyzer 0 % (0-5); Neutrophil # 8.38 X10^3/uL (2.7-7.7); Neutrophil % 74.1 % (47-70); Platelet Count 264 K/mm3 (150-450); RBC Distribution Width CV 13.5 % (11.6-14.6); RBC Distribution Width SD 44.5 fl (35.1-43.9); Red Blood Count 3.79 M/mm3 (4.6-6.2); White Blood Count 11.3 K/mm3 (4.4-11.0)
[2023-10-18 05:06] LABS: ALB/GLOB Ratio 0.7 RATIO (0.9-2.4); AST(SGOT) 13 U/L (15-37); Alanine Aminotransfer ALT/SGPT 21 U/L (16-61); Albumin, Serum 2.5 g/dL (3.2-5.0); Alkaline Phosphatase 155 U/L (45-117); Anion Gap 4 (5-15); BUN 19 mg/dL (7-18); BUN/Creat Ratio 21.6 RATIO (10-20); Calcium,Total 9.9 mg/dL (8.5-10.1); Chloride 102 mmol/L (98-107); Creatinine, Serum 0.88 mg/dL (0.70-1.30); EST Glomerular Filtration Rate 92 mL/min (>60); Est Glom Filt Rate - Afr Amer 112 mL/min (>60); Estimated Creatinine Clearance 94.76 ml/min; Globulin 3.5 g/dL (2.2-4.2); Glucose 105 mg/dL (74-106); Potassium 4.3 mmol/L (3.5-5.1); Sodium Level 134 mmol/L (136-145)
[2023-10-18 07:14] VITALS: O2SAT 95
[2023-10-18 08:00] VITALS: BP 110/65; PULSE 77; RESP 18; TEMP 37.2; O2SAT 94
[2023-10-18] MEDS: APIXABAN 5 MG TABLET PO ×2 (08:40→22:24)
[2023-10-18] MEDS: Lisinopril 20 MG Tablet PO (08:41)
[2023-10-18] MEDS: Carvedilol 25 MG Tablet PO ×2 (08:41→22:24)
[2023-10-18] MEDS: Ensure Plus High Protein 120 ML LIQUID PO ×2 (08:41→11:06)
[2023-10-18] MEDS: Ensure Clear 120 ML Liquid PO ×2 (08:41→11:06)
[2023-10-18] MEDS: Polyethylene Glycol 3350 17 GM PACKET PO ×2 (08:41→22:24)
[2023-10-18] MEDS: 0.9% Saline Lock 10 ML Syringe IV ×3 (08:42→22:24)
[2023-10-18] MEDS: Pantoprazole Sodium 40 MG in 0.9% Normal Saline (100mL MB+) 100 ML 330 MG IV ×2 (08:42→22:23)
[2023-10-18] MEDS: Lidocaine 5% Patch 1 PATCH TOPICAL (08:42)
[2023-10-18 13:11] VITALS: BP 114/72; PULSE 87; RESP 16; TEMP 37.6; O2SAT 94
--- NOTE | 2023-10-18 15:00 | CASEMGMT ---
Addendum entered by Brina Easley 10/18/23 16:23: ASYA ECHAVARRIA in to follow up with . [facility]. ASYA ECHAVARRIA asked discharge city planning engineer to send clinical information to fax provided. Original Note: ASYA ECHAVARRIA received call from Cherelle from [place] requesting update. ASYA ECHAVARRIA updated Cherelle with clinical information. Cherelle inquired if patient would like to be transferred to [place] and if so to fax clinical information to [phone]. Cherelle number is [phone] ext [phone]. ASYA ECHAVARRIA updated patient and . Per , [facility] told them they would pay for his hospitalization here. ASYA ECHAVARRIA provided with Cherelle's information. JERICHO will continue to follow this patient and plan for a safe discharge.
--- NOTE | 2023-10-18 15:45 | PN_ITS ---
Subjective Subjective Patient seen and examined. He had no active complaints. was by his bedside. Review of systems is otherwise negative. He had the esophageal biopsy which is still pending. He has otherwise remained hemodynamically stable. Objective Data Objective Data Vital Signs: Vital Signs Temp Pulse Resp BP Pulse Ox O2 Del Method O2 Flow Rate 99.6 F H 87 16 114/72 94 Room Air 2 10/18/23 13:11 10/18/23 13:11 10/18/23 13:11 10/18/23 13:11 10/18/23 13:11 10/18/23 13:24 10/15/23 10:20 Oxygen Flow Rate (L/min) 2 Oxygen Delivery Method Room Air Weight: 194 lb 0.108 oz Body Mass Index (BMI) 27.8 Intake & Output: Intake and Output for Last 24 Hours 10/16/23 10/17/23 10/18/23 23:59 23:59 23:59 Intake Total 1454.10 / 1454.10 1220 / 1460 1148.33 / 1148.33 Output Total 1350 / 1650 1300 / 1750 1150 / 1150 Balance 104.10 / -195.90 -80 / -290 -1.67 / -1.67 Medical Nutrition Assessment Dietitian: Malnutrition Criteria Met Start: 10/14/23 15:04 Freq: Status: Active Protocol: Document 10/18/23 12:50 RMA (Rec: 10/18/23 12:50 RMA [id number]) Nutrition Malnutrition Evidence of Malnutrition Exists Yes Malnutrition (severe): Chronic Evidenced By Suboptimal Energy Intake ( Severe),Weight Loss (Severe) Clinical Problem Chronic Disease or Condition Related Malnutrition Etiology severe, chronic malnutrition related to inadequate energy intake w/ metastatic disease Signs/Symptoms as evidenced by 22% wt loss x 3 months, estimated PO intake meeting <75% of estimated energy needs x 3 months Status Active Problem Recommendation Dietitian Recommendations/Changes Continue full liquid diet per GI. Will continue 8oz Ensure Plus High Protein TID with meals to provide additional calories/ protein. Will add magic cup BID w/ lunch and dinner. Will d/c ensure plus HP and ensure clear w/ medpass given ONS add to meal trays. May need to consider nutrition support given need for full liquid diet, wt loss significant for malnutrition. Lab / Micro Data 10/18/23 04:00 10/18/23 04:00 Labs: Laboratory Results - last 24 hr 10/18/23 04:00: WBC 11.3 H, RBC 3.79 L, Hgb 11.4 L, Hct 34.0 L, MCV 89.7, MCH 30.1, MCHC 33.5, RDW Std Deviation 44.5 H, RDW Coeff of Graham 13.5, Plt Count 264, MPV 9.8, Immature Gran % (Auto) 0.800, Neut % (Auto) 74.1 H, Lymph % (Auto) 7.1 L, [place] % (Auto) 11.6 H, Eos % (Auto) 5.8 H, Baso % (Auto) 0.6, Absolute Neuts (auto) 8.4 H, Absolute Lymphs (auto) 0.80 L, Nucleated RBC % 0, Sodium 134 L, Potassium 4.3, Chloride 102, Carbon Dioxide 28.0, Anion Gap 4 L, BUN 19 H, Creatinine 0.88, Estim Creat Clear Calc 94.76, Est GFR (MDRD) Af Amer 112, Est GFR (MDRD) Non-Af 92, BUN/Creatinine Ratio 21.6 H, Glucose 105, Calcium 9.9, Total Bilirubin 0.90, AST 13 L, ALT 21, Alkaline Phosphatase 155 H, Total Protein 6.0 L, Albumin 2.5 L, Globulin 3.5, Albumin/Globulin Ratio 0.7 L Micro: Microbiology 10/13/23 10:50 Mucosa - Nose Coronavirus COVID-19 PCR - Final Physical Exam Const alert, oriented x3 and no apparent distress General Appearance: cooperative and well developed HEENT normocephalic, moist oral mucous membranes and oropharynx normal Eyes PERRL and EOMs intact bilaterally Neck no lymphadenopathy, supple and no JVD Lymph Lymphatic: no lymphadenopathy noted and no lymphedema noted Resp normal respiratory effort, normal air movement and clear to auscultation bilaterally Cardio regular rate, regular rhythm, S1 normal heart sound, S2 normal heart sound and no murmurs GI normal to inspection, nondistended, normoactive bowel sounds, soft to palpation, non-tender and non-distended Extremity normal capillary refill, no clubbing, cyanosis or edema and no calf tenderness General Extremity: no tenderness to palpation of joints or extremities Skin General Skin Exam: no breakdown Neuro CN's II-XII intact bilaterally, no focal motor deficits, no sensory deficits noted and deep tendon reflexes 2+ bilaterally Motor Exam: strength 5/5 throughout and general weakness Psych thought process normal, cooperative and affect normal Appearance: appropriate Assessment & Plan Assessment/Plan (1) Metastatic cancer: (2) Hypercalcemia: PLAN: Plan #Metastatic cancer, 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 Results pending * oncology consulted as well as radiation oncology, as per GI, patient may benefit from esophageal stent as he has had difficulty swallowing especially with solid foods. GI however states that they need oncology and radiation oncology input to see if a stent would be the best option for patient. * Consult placed with Dr. Celestin and Dr. Lovett. Case discussed verbally with Dr. Quispe * #Hypercalcemia, likely related to osteolytic lesions. Improving. Will monitor. #Odynophagia and dysphagia due to suspected primary esophageal cancer: Management as above. Awaiting stent placement. #Hypokalemia: Resolved #Bilateral PE: Patient started on heparin drip initially but now on Eliquis. #Severe malnutrition: Has lost about 80 pounds within the last few months due to his difficulty swallowing. Dietitian on board. #GERD: On PPI #Hypertension: On carvedilol and lisinopril. Hydrochlorothiazide held due to hypercalcemia. #Nicotine dependence: Counseled to quit. Nicotine patch 21 mg daily. DVT prophylaxis; on eliquis Charges/Coding Visit Charges Inpatient E&M: 26400 Subs Hosp L2
--- NOTE | 2023-10-18 17:25 | ONC.CONSULT ---
Assessment & Plan Assessment/Plan (1) Esophageal cancer: Status: Acute Code(s): C15.9 - Malignant neoplasm of esophagus, unspecified Qualifiers: Malignant neoplasm of esophagus location: lower third Qualified Code(s): C15.5 - Malignant neoplasm of lower third of esophagus Plan: Stage IV with extensive painful metastases to liver and bones. Disease is poorly differentiated, HER2 negative and microsatellite stable. Goal of treatment is primarily palliative. Palliative referral with anticipation of advancement to home hospice if the patient does not have significant symptom palliation specially pain and improvement of performance status following palliative radiation. Impression and recommendations were discussed with patient and his . (2) Metastasis to liver: Status: Acute Code(s): C78.7 - Secondary malignant neoplasm of liver and intrahepatic bile duct Plan: Extensive, painful, advise narcotic analgesia. (3) Metastatic bone tumor: Status: Acute Code(s): C79.51 - Secondary malignant neoplasm of bone Plan: Extensive, painful, advise narcotic analgesia and radiation oncology consultation. MRI of the total spine is indicated however this may not be practically impossible because of significant pain even with analgesia and sedation. To be assessed after pain control (4) Malignant bone pain: Status: Acute Code(s): G89.3 - Neoplasm related pain (acute) (chronic); M89.8X9 - Other specified disorders of bone, unspecified site (5) Sciatica of left side: Status: Acute Code(s): M54.32 - Sciatica, left side Plan: Due to malignant involvement of the sacral plexus (6) Bilateral pulmonary embolism: Status: Acute Code(s): I26.99 - Other pulmonary embolism without acute cor pulmonale Plan: Small, were incidentally noted. Secondary to malignancy induced hypercoagulability. However systemic anticoagulation is contraindicated at this time due to high risk of GI bleeding from the primary tumor. To be revisited after palliative radiation. Consult vascular surgery for IVC filter placement. (7) Hypercalcemia: Status: Acute Code(s): E83.52 - Hypercalcemia Plan: Improved with hydration (8) Cancer cachexia: Status: Acute Code(s): R64 - Cachexia Plan: Secondary to malignancy induced anorexia and dysphagia. Consult radiation oncology for palliative radiation of the primary tumor and nutrition. (9) Dysphagia: Status: Acute Code(s): R13.10 - Dysphagia, unspecified Plan: Consult radiation oncology for palliative radiation HPI Consult Data Date of Service:: 10/19/23 PCP / Referring Provider: [facility] Attending: Dr. Yoselin Garnica MD Chief Complaint Chief Complaint: Back pain History of Present Illness History of Present Illness: 63-year-old male who presents with progressively worsening painless dysphagia, 50 pound weight loss, more recently increasing right upper quadrant pain and lower back pain radiating down the left lower extremity. In the course of his illness he experienced 2 episodes of small hemoptysis but is unaware of any rectal bleeding or melena. October 13, 2023 CT chest abdomen and pelvis: IMPRESSION: 1. 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 2. Extensive metastatic disease to the liver. 3. Small bilateral pulmonary emboli as described above. 4. No specific mass, but question distal esophageal thickening and small hiatal hernia. 5. 3.3 cm focal abdominal aortic aneurysm. 6. Moderate to marked diffuse fecal retention. October 13, 2023 brain MRI: MPRESSION: Nonspecific destructive lesion of the clivus which may be consistent with multiple myeloma, metastasis or chordoma Clinical correlation recommended No significant abnormality within the brain. No evidence for acute infarct or brain metastasis October 14, 2023 EGD: Impressions : - Partially obstructing, likely malignant esophageal tumor was found in the lower third of the esophagus. Biopsied. Injected. Treated with argon plasma coagulation (APC). - Portal hypertensive gastropathy. - No gross lesions in the second portion of the duodenum. October 14, 2023 pathology: MICROSCOPIC DIAGNOSIS A. Esophageal mass, biopsy: Poorly differentiated adenocarcinoma. B. Esophageal mass, biopsy: Poorly differentiated adenocarcinoma ANTIBODY / CLONE RESULT Block B Her-2neu (CB11) negative (0) AE1-3 (AE1/AE3/PCK26) positive CK7 (OV-TL12/30) positive CK8 (18jgdzO50) positive CK20 (KS20.8) negative MOC-31 (4561) positive MLH-1 (M1) positive MSH2 (25D12) positive MSH6 (44) positive PMS2 ([id number]) positive Ki-67 (30-9) positive, high P53 (DO-7) positive (missense mutation pattern) Advanced Directives Power of Quality Lead: Yes Living Will: Yes [facility] Medical History (Updated 10/19/23 @ 09:[address] Tray Patel MD) Alcohol abuse Cancer cachexia Chronic low back pain Dysphagia Esophageal cancer Family history of colon cancer Hyperlipidemia Hypertension Malignant bone pain Metastasis to liver Metastatic bone tumor Nicotine dependence Sciatica of left side Home Medications carvedilol 25 mg tablet 25 mg PO BID BLOOD PRESSURE 07/17/20 [History Last Taken 10/12/23] diclofenac sodium 1 % topical gel 4 g topical UD PRN PAIN 07/17/20 [History Last Taken 10/12/23] lisinopril 20 mg-hydrochlorothiazide 25 mg tablet 1 tab PO BID BLOOD PRESSURE 07/17/20 [History Last Taken 10/13/23] cholecalciferol (vitamin D3) 50 mcg (2,000 unit) capsule (D3-2000) 50 mcg PO DAILY SUPPLEMENT 10/13/23 [History Last Taken 10/13/23] ibuprofen 200 mg tablet 200 - 400 mg PO Q4H PAIN 10/13/23 [History Last Taken 10/13/23] omega 6-eum-xcg-fish oil 1,200 mg (144 mg-216 mg) capsule (Fish Oil) 1 cap PO DAILY SUPPLEMENT 10/13/23 [History Last Taken 10/13/23] vitamin B complex (B Complex-Vitamin B12 tablet) 1 tab PO DAILY SUPPLEMENT 10/13/23 [History Last Taken 10/13/23] Allergy/AdvReac Type Severity Reaction Status Date / Time Penicillins Allergy Mild Itching/watering Verified 10/13/23 09:56 eyes Family History Father Colon cancer Surgical History history excision benign growth left thigh History of tonsillectomy and adenoidectomy Social History (Updated 10/13/23 @ 19:[address] Kika Garcia DO) household members: spouse housing: house Smoking Status: Current every day smoker tobacco type: cigarettes alcohol intake: current alcohol intake frequency: a few times a month substance use type: does not use ROS Constitutional Constitutional: Reports fatigue, poor appetite and weight loss; Denies night sweats Cardiovascular Cardiovascular: Denies chest pain or dyspnea Respiratory/Chest Respiratory/Chest: Denies cough or hemoptysis Gastrointestinal Gastrointestinal: Reports abdominal pain, anorexia, dysphagia and other Details: Had 2 episodes of small hematemesis in the course of the past few weeks ; Denies change in bowel habits, hematochezia or melena Genitourinary Genitourinary: Reports urinary frequency; Denies change in urinary stream or urinary incontinence Musculoskeletal Musculoskeletal: Reports back pain, extremity pain and other Details: Left flank pain radiating down the left lower extremity sciatica ; Denies muscle weakness Integumentary Integumentary: Denies changing lesions or new lesions Neurologic Neurologic: Denies abnormal speech, focal weakness, headache(s), numbness or tingling Hematologic/Lymphatic Hematologic/Lymphatic: Denies easy bleeding, easy bruising or lymphadenopathy Physical Exam Narrative ECOG 3 largely because of limitation of movement by pain Const alert and oriented x3 General Appearance: cooperative, ill appearing Positive for chronically and appears older than stated age Orientation / Consciousness: oriented to person, oriented to place and oriented to time HEENT normocephalic and moist oral mucous membranes Eyes no scleral icterus Neck no lymphadenopathy and no JVD Resp clear to auscultation bilaterally Cardio regular rate and regular rhythm GI soft to palpation and non-tender Palpation: hepatomegaly; Negative for ascites Bladder / Kidney Exam: no CVA tenderness Extremity no clubbing, cyanosis or edema Skin no rashes or lesions noted Neuro CN's II-XII intact bilaterally, moves all extremities, no focal motor deficits and no sensory deficits noted Motor Exam: general weakness Psych mental status grossly normal, cooperative, affect normal and speech normal Vital Signs Temperature 99.6 F H 10/18/23 13:11 Temperature Source Oral 10/18/23 13:11 Pulse Rate 87 10/18/23 13:11 Pulse Strength Normal (2+) 10/18/23 08:15 Respiratory Rate 16 10/18/23 13:11 Respiratory Effort Normal, Non-Labored 10/18/23 13:24 Respiratory Depth Normal 10/18/23 13:24 Respiratory Pattern Normal 10/18/23 13:24 Blood Pressure 114/72 10/18/23 13:11 Blood Pressure Mean 86 10/18/23 13:11 Blood Pressure Source Monitor 10/18/23 13:11 Blood Pressure Position Semi-Fowlers 10/18/23 13:11 Blood Pressure Location Right Arm 10/18/23 13:11 Baseline BP 135/86 10/14/23 11:31 Pulse Ox 94 10/18/23 13:11 Oxygen Delivery Method Room Air 10/18/23 13:24 Oxygen Flow Rate (L/min) 2 10/15/23 10:20 Laboratory Results - last 24 hr 10/18/23 04:00: WBC 11.3 H, RBC 3.79 L, Hgb 11.4 L, Hct 34.0 L, MCV 89.7, MCH 30.1, MCHC 33.5, RDW Std Deviation 44.5 H, RDW Coeff of Graham 13.5, Plt Count 264, MPV 9.8, Immature Gran % (Auto) 0.800, Neut % (Auto) 74.1 H, Lymph % (Auto) 7.1 L, [place] % (Auto) 11.6 H, Eos % (Auto) 5.8 H, Baso % (Auto) 0.6, Absolute Neuts (auto) 8.4 H, Absolute Lymphs (auto) 0.80 L, Nucleated RBC % 0, Sodium 134 L, Potassium 4.3, Chloride 102, Carbon Dioxide 28.0, Anion Gap 4 L, BUN 19 H, Creatinine 0.88, Estim Creat Clear Calc 94.76, Est GFR (MDRD) Af Amer 112, Est GFR (MDRD) Non-Af 92, BUN/Creatinine Ratio 21.6 H, Glucose 105, Calcium 9.9, Total Bilirubin 0.90, AST 13 L, ALT 21, Alkaline Phosphatase 155 H, Total Protein 6.0 L, Albumin 2.5 L, Globulin 3.5, Albumin/Globulin Ratio 0.7 L Diagnostic Data Brain CT 10/13/23 11:50 IMPRESSION: Normal unenhanced CT scan of the brain. Lytic bone metastasis of the clivus. Electronically Signed: Cameron Faustin MD at 12:46 EST , I personally reviewed patient's CT scan images of the chest abdomen and pelvis and concur with reported findings Chest/Abdomen/Pelvis CT 10/13/23 11:50 IMPRESSION: 1. 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 2. Extensive metastatic disease to the liver. 3. Small bilateral pulmonary emboli as described above. 4. No specific mass, but question distal esophageal thickening and small hiatal hernia. 5. 3.3 cm focal abdominal aortic aneurysm. 6. Moderate to marked diffuse fecal retention. N.B. : The above Results were Read Back by Cameron Faustin MD to Renny Navarro DO, and understanding confirmed on 10/13/2023 12:29:58 (ET). Electronically Signed: Cameron Faustin MD at 12:45 EST , ADDENDUM: 10/13/23 1252 IMPRESSION: 1. 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 2. Extensive metastatic disease to the liver. 3. Small bilateral pulmonary emboli as described above. 4. No specific mass, but question distal esophageal thickening and small hiatal hernia. 5. 3.3 cm focal abdominal aortic aneurysm. 6. Moderate to marked diffuse fecal retention. N.B. : The above Results were Read Back by Cameron Faustin MD to Renny Navarro DO, and understanding confirmed on 10/13/2023 12:29:58 (ET). Electronically Signed: Cameron Faustin MD at 12:45 EST , Brain MRI 10/13/23 13:15 IMPRESSION: Nonspecific destructive lesion of the clivus which may be consistent with multiple myeloma, metastasis or chordoma Clinical correlation recommended No significant abnormality within the brain. No evidence for acute infarct or brain metastasis Electronically Signed: Renny Valerio MD at 16:16 EST ,
[2023-10-18 17:31] VITALS: BP 123/74; PULSE 96; RESP 18; TEMP 37; O2SAT 95
[2023-10-18 22:22] VITALS: BP 113/69; PULSE 84; RESP 18; TEMP 36.8; O2SAT 96
[2023-10-19] MEDS: oxyCODONE 5 MG Tablet 15 MG PO ×5 (03:25→20:14)
[2023-10-19] MEDS: Acetaminophen 500 MG Tablet 1000 MG PO ×3 (03:25→18:55)
[2023-10-19] MEDS: 0.9% Saline Lock 10 ML Syringe IV ×2 (03:26→10:00)
[2023-10-19 03:30] VITALS: BP 113/81; PULSE 85; RESP 18; TEMP 36.7; O2SAT 95
[2023-10-19 06:00] VITALS: BMI 27.0
[2023-10-19 06:23] LABS: Absolute Lymphocyte Count 0.77 X10^3/uL (0.83-4.51); Absolute Neutrophil Count 7.2 X10^3/uL (2.0-7.7); Basophil# 0.06 X10^3/uL; Basophil% 0.6 % (0-1); Eosinophils% 5.1 % (0-5); Hematocrit 34.2 % (40-54); Hemoglobin 11.2 g/dL (13.0-16.5); Lymphocyte # 0.77 X10^3/ul (0.83-4.51); Lymphocyte % 7.8 % (19-41); Mean Corp Hgb Conc 32.7 g/dL (32-36); Mean Corpuscular Hgb 29.3 pg (27.0-32.0); Mean Corpuscular Volume 89.5 fL (80-94); Mean Platelet Vol. 9.8 fl (6.2-12.0); Monocyte# 1.29 X10^3/uL; NRBC Flagged by Analyzer 0 % (0-5); Neutrophil # 7.23 X10^3/uL (2.7-7.7); Platelet Count 284 K/mm3 (150-450); RBC Distribution Width CV 13.3 % (11.6-14.6); RBC Distribution Width SD 43.8 fl (35.1-43.9); Red Blood Count 3.82 M/mm3 (4.6-6.2); White Blood Count 9.9 K/mm3 (4.4-11.0)
[2023-10-19 06:44] LABS: ALB/GLOB Ratio 0.6 RATIO (0.9-2.4); AST(SGOT) 13 U/L (15-37); Alanine Aminotransfer ALT/SGPT 21 U/L (16-61); Albumin, Serum 2.3 g/dL (3.2-5.0); Alkaline Phosphatase 170 U/L (45-117); Anion Gap 4 (5-15); BUN 19 mg/dL (7-18); BUN/Creat Ratio 22.7 RATIO (10-20); Calcium,Total 9.8 mg/dL (8.5-10.1); Chloride 102 mmol/L (98-107); Creatinine, Serum 0.84 mg/dL (0.70-1.30); EST Glomerular Filtration Rate 98 mL/min (>60); Est Glom Filt Rate - Afr Amer 119 mL/min (>60); Estimated Creatinine Clearance 91.73 ml/min; Globulin 3.6 g/dL (2.2-4.2); Glucose 111 mg/dL (74-106); Potassium 4.3 mmol/L (3.5-5.1); Protein, Total 5.9 g/dL (6.4-8.2); Sodium Level 135 mmol/L (136-145)
[2023-10-19 07:43] VITALS: BP 115/72; PULSE 83; RESP 16; TEMP 36.9; O2SAT 95
[2023-10-19 09:43] VITALS: BP 91/64; PULSE 76; RESP 16; TEMP 37.1; O2SAT 94
[2023-10-19] MEDS: APIXABAN 5 MG TABLET PO ×2 (09:50→20:13)
[2023-10-19] MEDS: Pantoprazole Sodium 40 MG in 0.9% Normal Saline (100mL MB+) 100 ML 330 MG IV ×2 (09:51→20:14)
[2023-10-19] MEDS: Polyethylene Glycol 3350 17 GM PACKET PO ×2 (09:51→20:13)
[2023-10-19] MEDS: Lidocaine 5% Patch 1 PATCH TOPICAL (09:51)
--- NOTE | 2023-10-19 10:29 | RAO.OV_ITS ---
Intake Vital Signs 10/13/23 09:57 10/13/23 10:03 10/13/23 11:47 10/13/23 11:50 10/13/23 12:00 10/13/23 12:10 10/13/23 12:20 10/13/23 12:30 10/13/23 12:40 10/13/23 12:50 10/13/23 13:00 10/13/23 13:10 10/13/23 13:20 10/13/23 13:30 10/13/23 13:40 10/13/23 13:50 10/13/23 14:00 10/13/23 14:00 10/13/23 14:10 10/13/23 14:20 10/13/23 14:30 10/13/23 15:55 10/13/23 15:57 10/13/23 16:00 10/13/23 16:00 10/13/23 16:03 10/13/23 16:10 10/13/23 16:20 10/13/23 16:26 10/13/23 16:30 10/13/23 16:40 10/13/23 16:50 10/13/23 17:00 10/13/23 17:10 10/13/23 17:20 10/13/23 17:30 10/13/23 17:40 10/13/23 17:50 10/13/23 18:00 10/13/23 18:10 10/13/23 18:15 10/13/23 18:20 10/13/23 18:30 10/13/23 19:53 10/13/23 20:21 10/13/23 20:25 10/13/23 20:50 10/13/23 20:51 10/13/23 22:00 10/13/23 23:04 10/13/23 23:05 10/14/23 00:43 10/14/23 06:00 10/14/23 06:05 10/14/23 06:30 10/14/23 07:35 10/14/23 09:09 10/14/23 11:15 10/14/23 11:20 10/14/23 11:25 10/14/23 11:31 10/14/23 11:41 10/14/23 14:18 10/14/23 14:21 10/14/23 14:52 10/14/23 17:38 10/14/23 19:40 10/14/23 21:23 10/15/23 02:30 10/15/23 04:23 10/15/23 05:50 10/15/23 07:08 10/15/23 10:05 10/15/23 10:20 10/15/23 16:26 10/15/23 20:37 10/16/23 06:00 10/16/23 07:40 10/16/23 08:43 10/16/23 14:32 10/16/23 20:20 10/17/23 03:00 10/17/23 04:09 10/17/23 09:00 10/17/23 15:28 10/17/23 20:47 10/18/23 01:35 10/18/23 03:20 10/18/23 07:14 10/18/23 08:00 10/18/23 12:32 10/18/23 13:11 10/18/23 17:31 10/18/23 22:22 10/19/23 03:30 10/19/23 06:00 10/19/23 07:43 10/19/23 09:43 Height 5 ft 10 in 5 ft 10 in 5 ft 10 in 5 ft 10 in Weight: 177 lb 0.499 oz 169 lb 8.568 oz 172 lb 9.951 oz 172 lb 9.951 oz 172 lb 9.951 oz 180 lb 15.992 oz 188 lb 0.869 oz 189 lb 13.088 oz 194 lb 0.108 oz 19 4 lb 0.108 oz 188 lb 7.924 oz BMI 25.4 24.3 24.7 25.9 26.9 27.2 27.8 27.0 BP 105/61 105/61 129/83 H 129/83 H 126/83 H 136/88 H 114/73 138/82 H 171/97 H 142/88 H 135/86 H 125/79 H 13 4/85 H 146/92 H 140/89 H 142/92 H 103/75 112/82 H 126/90 H 122/75 H 118/ 71 128/86 H 140/89 H 126/75 H 124/75 H 119/72 150/91 H 124/86 H 104/65 1 05/67 110/65 114/72 123/74 H 113/69 113/81 H 115/72 91/64 Position Semi-Fowlers Semi - Fowlers Semi-Fowlers Semi-Fowlers Semi-Fowlers Semi-Fowlers Semi-Fowlers Semi-Fowlers Semi-Fowlers Semi-Fowlers Semi-Fowlers Semi-Fowlers Semi- Fowlers Semi-Fowlers Semi-Fowlers Semi-Fowlers Semi-Fowlers Supine Supin e Semi-Fowlers Semi-Fowlers Semi-Fowlers Semi-Fowlers Semi-Fowlers Semi-Fow lers Semi-Fowlers Semi-Fowlers Respiration 28 H 34 H 24 H 23 H 24 H 18 18 18 24 H 23 H 22 H 23 H 21 H 23 H 15 15 23 H 21 H 14 27 H 17 12 19 H 9 L 16 15 13 13 12 12 1 3 11 L 12 16 16 16 16 16 16 16 14 16 16 16 16 16 16 16 16 16 16 16 16 18 16 18 16 18 18 18 16 16 Pulse 93 97 92 94 96 89 84 91 91 98 87 93 92 96 88 91 101 H 98 99 105 H 99 98 93 103 H 100 96 93 99 94 99 102 H 93 93 96 99 98 96 98 95 94 94 96 99 93 91 86 86 74 77 82 80 92 87 92 81 91 86 71 79 79 79 94 91 82 76 77 87 96 84 85 83 76 Temp 97.4 F L 97.4 F L 98.6 F 98.6 F 98.1 F 97.2 F L 98.5 F 97.6 F L 98.5 F 97.9 F 97.9 F 98.1 F 98.1 F 97.9 F 98.6 F 98.9 F 98.3 F 98.8 F 98.9 F 98.6 F 97.3 F L 9 7.6 F L 99 F 99.6 F H 98.6 F 98.2 F 98.1 F 98.4 F 98.8 F Pulse Oximetry (%) 97 96 98 97 97 89 89 90 92 91 91 94 92 93 91 9 2 93 93 92 96 95 90 90 94 90 95 98 98 98 99 99 98 100 99 100 98 97 97 98 97 96 98 96 95 94 89 98 98 98 98 96 100 100 100 99 98 95 96 97 97 94 95 9 5 94 94 96 95 95 95 94 96 96 95 94 94 95 96 95 95 94 Oxygen Flow Rate (L/min) 2 2 2 2 2 2 2 2 2 2 2 2 2 2 1 2 2 2 2 2 2 2 2 2 Intake Visit Reasons: METASTATIC CANCER OF UNKNOWN ORIGIN/PE Chief Complaint: Back pain Allergies Penicillins Allergy (Mild, Verified 10/13/23 09:56) Itching/watering eyes Medications carvedilol 25 mg tablet 25 mg PO BID BLOOD PRESSURE 07/17/20 [History Confirmed 10/13/23] diclofenac sodium 1 % topical gel 4 g topical UD PRN PAIN 07/17/20 [History Confirmed 10/13/23] lisinopril 20 mg-hydrochlorothiazide 25 mg tablet 1 tab PO BID BLOOD PRESSURE 07/17/20 [History Confirmed 10/13/23] cholecalciferol (vitamin D3) 50 mcg (2,000 unit) capsule (D3-2000) 50 mcg PO DAILY SUPPLEMENT 10/13/23 [History Confirmed 10/13/23] ibuprofen 200 mg tablet 200 - 400 mg PO Q4H PAIN 10/13/23 [History Confirmed 10/13/23] omega 3-hku-vns-fish oil 1,200 mg (144 mg-216 mg) capsule (Fish Oil) 1 cap PO DAILY SUPPLEMENT 10/13/23 [History Confirmed 10/13/23] vitamin B complex (B Complex-Vitamin B12 tablet) 1 tab PO DAILY SUPPLEMENT 10/13/23 [History Confirmed 10/13/23] Home Medications Acetaminophen (Acetaminophen 500 Mg Tablet) 1,000 mg PO Q8H MARIANELA Last Admin: 10/19/23 03:25 Dose: 1,000 mg Albuterol Sulfate (Albuterol 2.5 Mg/3 Ml Vial.Neb.) 2.5 mg INHALATION Q2H PRN PRN PRN Reason: SOB/Wheezing Apixaban (Apixaban 5 Mg Tablet) 10 mg PO BID [facility]; Taper Stop: 04/19/24 21:59 Last Admin: 10/19/23 09:50 Dose: 10 mg Carvedilol (Carvedilol 25 Mg Tablet) 25 mg PO BID MARIANELA; Protocol Last Admin: 10/19/23 09:49 Dose: Not Given Guaifenesin (Guaifenesin 10 Ml Udc (200mg/10ml)) 20 ml PO Q4H PRN PRN PRN Reason: COUGH Heparin Sodium (Porcine) (Heparin Injection (Vial) 5,000 Unit/Ml Vial) 0 unit IV UD PRN; Protocol PRN Reason: dose adjustment Hydromorphone HCl (Hydromorphone 1 Mg/Ml Syringe) 0.5 - 1 mg IV Q3H PRN PRN PRN Reason: Pain Score 6-10 Last Admin: 10/16/23 08:57 Dose: 1 mg Sodium Chloride () 250 mls @ 15 mls/hr IV .[id number] PRN PRN Reason: Additional IVPB Infusion Sodium Chloride () 250 mls @ 15 mls/hr IV .[id number] PRN PRN Reason: Saline Flush Pantoprazole Sodium 40 mg/ (Sodium Chloride) 110 mls @ 330 mls/hr IV Q12 MARIANELA Last Admin: 10/19/23 09:51 Dose: 330 mls/hr Lidocaine (Lidocaine 5% Patch) 1 patch TOPICAL DAILY [facility]; Protocol Last Admin: 10/19/23 09:51 Dose: 1 patch Lisinopril (Lisinopril 20 Mg Tablet) 20 mg PO DAILY [facility]; Protocol Last Admin: 10/19/23 09:50 Dose: Not Given Nicotine (Nicotine 14 Mg Patch) 14 mg TD DAILY [facility] Last Admin: 10/19/23 09:50 Dose: 14 mg Oxycodone HCl (Oxycodone 5 Mg Tablet) 15 mg PO Q4H PRN PRN PRN Reason: Pain Score 4-10 Last Admin: 10/19/23 07:47 Dose: 15 mg Polyethylene Glycol (Polyethylene Glycol 3350 17 Gm Packet) 17 gm PO BID [facility] Last Admin: 10/19/23 09:51 Dose: 17 gm Prochlorperazine Edisylate (Prochlorperazine 10 Mg/2 Ml Vial) 5 mg IV Q4H PRN PRN PRN Reason: Breakthrough Nausea/Vomiting Senna/Docusate Sodium (Senna/Docusate Sodium 1 Tablet) 2 tablet PO BID PRN PRN PRN Reason: Constipation Sodium Chloride (0.9% Saline Lock 10 Ml Syringe) 10 - 40 ml IV UD PRN PRN Reason: SALINE FLUSH Last Admin: 10/19/23 10:00 Dose: 10 ml Discontinued Medications Haloperidol Lactate (Haloperidol Lactate 5 Mg/Ml Vial) 1 mg IV Q4H PRN PRN PRN Reason: NAUSEA/VOMITING Heparin Sodium (Porcine) (Heparin Injection (Vial) 5,000 Unit/Ml Vial) 5,000 unit IV BOLUS ONE Stop: 10/13/23 16:41 Last Admin: 10/13/23 17:28 Dose: 5,000 unit Hydromorphone HCl (Hydromorphone 1 Mg/Ml Syringe) 1 mg IV X1 ONE Stop: 10/13/23 14:33 Last Admin: 10/13/23 14:37 Dose: 1 mg Sodium Chloride () 1,000 mls @ 999 mls/hr IV .Q1H1M ONE Stop: 10/13/23 11:29 Last Infusion: 10/13/23 13:11 Dose: Infused Potassium Chloride/Sodium Chloride () 40 meq in 1,000 mls @ 250 mls/hr IV .Q4H [facility] Stop: 10/13/23 16:44 Last Infusion: 10/13/23 19:40 Dose: Infused Heparin Sodium/Dextrose () 25,000 units in 250 mls @ 11 mls/hr CONT INF .[id number] [facility]; Protocol Stop: 10/15/23 22:00 Last Titration: 10/16/23 07:38 Dose: Infused Lactated Ringer's () 1,000 mls @ 100 mls/hr IV .Q10H [facility] Last Infusion: 10/15/23 09:57 Dose: Infused Magnesium Sulfate 2 gm/ (Dextrose) 104 mls @ 52 mls/hr IV X1 ONE Stop: 10/14/23 10:29 Last Infusion: 10/14/23 14:32 Dose: Infused Potassium Phosphate 30 mm/ (Sodium Chloride) 260 mls @ 42 mls/hr IV X1 ONE Stop: 10/14/23 15:11 Last Infusion: 10/14/23 18:21 Dose: Infused Lactated Ringer's () 1,000 mls @ 15 mls/hr IV .Q48H [facility] Last Infusion: 10/16/23 17:56 Dose: Infused Sodium Chloride () 1,000 mls @ 75 mls/hr IV .[id number] [facility] Last Infusion: 10/16/23 09:15 Dose: Infused Sodium Chloride () 1,000 mls @ 50 mls/hr IV .Q20H [facility] Stop: 10/18/23 01:49 Last Infusion: 10/19/23 09:09 Dose: Infused Morphine Sulfate (Morphine 4 Mg/Ml Syringe) 4 mg IV X1 ONE Stop: 10/13/23 10:35 Last Admin: 10/13/23 10:44 Dose: 4 mg Nutritional Formula (Lactose Free) (Ensure Plus High Protein 120 Ml Liquid) 120 ml PO TIDCM MARIANELA Last Admin: 10/18/23 11:06 Dose: 120 ml Nutritional Formula (Lactose Free) (Ensure Clear 120 Ml Liquid) 120 ml PO TIDCM [facility] Last Admin: 10/18/23 11:06 Dose: 120 ml Ondansetron HCl (Ondansetron 4 Mg/2 Ml Vial) 4 mg IV X1 ONE Stop: 10/13/23 10:35 Last Admin: 10/13/23 10:44 Dose: 4 mg Ondansetron HCl (Ondansetron 4 Mg/2 Ml Vial) 4 mg IV X1 ONE Stop: 10/13/23 12:26 Last Admin: 10/13/23 13:06 Dose: 4 mg Oxycodone HCl (Oxycodone 5 Mg Tablet) 10 mg PO Q4H PRN PRN PRN Reason: Pain Score 4-10 Last Admin: 10/16/23 05:02 Dose: 10 mg Potassium Chloride (Potassium Chloride Oral Soln 20 Meq/15 Ml Udc) 40 meq PO X1 ONE Stop: 10/13/23 21:01 Last Admin: 10/13/23 23:05 Dose: 40 meq Prochlorperazine Edisylate (Prochlorperazine 10 Mg/2 Ml Vial) 10 mg IV X1 ONE Stop: 10/13/23 12:26 Last Admin: 10/13/23 13:06 Dose: 10 mg PFSH PFSH Medical History (Updated 10/19/23 @ 09:[address] Tray Patel MD) Alcohol abuse Cancer cachexia Chronic low back pain Dysphagia Esophageal cancer Family history of colon cancer Hyperlipidemia Hypertension Malignant bone pain Metastasis to liver Metastatic bone tumor Nicotine dependence Sciatica of left side Home Medications carvedilol 25 mg tablet 25 mg PO BID BLOOD PRESSURE 07/17/20 [History Last Taken 10/12/23] diclofenac sodium 1 % topical gel 4 g topical UD PRN PAIN 07/17/20 [History Last Taken 10/12/23] lisinopril 20 mg-hydrochlorothiazide 25 mg tablet 1 tab PO BID BLOOD PRESSURE 07/17/20 [History Last Taken 10/13/23] cholecalciferol (vitamin D3) 50 mcg (2,000 unit) capsule (D3-2000) 50 mcg PO DAILY SUPPLEMENT 10/13/23 [History Last Taken 10/13/23] ibuprofen 200 mg tablet 200 - 400 mg PO Q4H PAIN 10/13/23 [History Last Taken 10/13/23] omega 5-pnx-wpb-fish oil 1,200 mg (144 mg-216 mg) capsule (Fish Oil) 1 cap PO DAILY SUPPLEMENT 10/13/23 [History Last Taken 10/13/23] vitamin B complex (B Complex-Vitamin B12 tablet) 1 tab PO DAILY SUPPLEMENT 10/13/23 [History Last Taken 10/13/23] Allergy/AdvReac Type Severity Reaction Status Date / Time Penicillins Allergy Mild Itching/watering Verified 10/13/23 09:56 eyes Family History Father Colon cancer Surgical History history excision benign growth left thigh History of tonsillectomy and adenoidectomy Social History (Updated 10/13/23 @ 19:[address] 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 History of Present Illness: 10/13/2023: CT brain without contrast was performed.? This demonstrated a lytic bone metastasis involving the clivus measuring about 2.4 cm.? No other abnormalities are noted. 10/13/2023: Patient completed CT chest/abdomen/pelvis with contrast.? This demonstrated extensive skeletal metastatic disease including severe osteolytic destruction of several vertebral bodies as well as much of the pelvis especially on the left side.? There is extensive metastatic disease noted in the liver.? There are small bilateral pulmonary emboli.? There is a nonspecific mass/esophageal thickening in the distal esophagus. 10/13/2023: MRI brain with and without contrast was performed.? This demonstrated a nonspecific destructive lesion of the clivus which may be consistent with myeloma, metastasis or chordoma.? No abnormalities are noted within the brain. 10/14/2023: Patient completed EGD.? This demonstrated a partially obstructing likely malignant esophageal tumor found in the lower third of the esophagus which was biopsied.? No other lesions are noted.? Pathology was consistent with poorly differentiated non-small cell carcinoma favoring adenocarcinoma, HER2 0+ IHC, mismatch repair proteins intact Radiation Treatment History: No prior history of radiation therapy. No pacemaker. No diagnosis of radiosensitizing comorbidity. Interval History: Patient was seen as an inpatient for consultation. He reports having left-sided shooting pain in the anterior left leg and the left hip for a few months which has been progressively getting worse. This ranges from about a 5/10 when he is seated to up to an 8/10 when he is ambulating. He also has noted some discomfort in his right abdomen/right flank over a broad area and this is actually the pain that brought him to the hospital this time. He denies having any weakness. He does also report some more chronic back pain which has not been worsening to his knowledge. He has had swallowing difficulty for about 5 months and he can now only swallow liquids because when he swallows solids they get stuck and cause discomfort, occasionally they regurgitate. He has lost about 50 pounds from his baseline weight of 220 pounds. He denies having melena, hematochezia, hematemesis. He denies cough, shortness of breath, chest pain. He denies neck pain or headache. He denies nausea/vomiting or current reflux. Energy level has been decreased but he is still able to complete ADLs, he is mostly limited by the pain with ambulation. Review of Systems: A 12-point review of systems was completed and was negative except for what is noted in the HPI/Interval History and by the nurse. Physical Exam: Weight: 167 lbs ECO KARNOFSKY SCORE: 60% CONSTITUTIONAL: Well-developed, well-nourished, and in no apparent distress. NECK: Supple, no thyromegaly, and non-tender. Trachea midline. No cervical or supraclavicular adenopathy noted. CARDIAC: Regular rate and rhythm. Normal S1, S2. No murmurs, rubs, or gallops. PULMONARY/CHEST: Lungs are clear to auscultation and percussion bilaterally. No wheezes, rhonchi, or crackles noted. No increased work of breathing. ABDOMINAL: Abdomen soft, non-tender, non-distended. No hepatomegaly. Normoactive bowel sounds in all four quadrants. No guarding, rebound. BACK: Straight and aligned. No CVA tenderness. Axial skeleton non-tender to percussion. EXTREMITIES: Full range of motion in all four extremities. No evidence of edema. Pain in left hip NEUROLOGICAL EXAM: Alert and oriented x 3. Answers questions and follows commands appropriately. Cranial nerves II through XII are grossly intact. No focal neurological deficit. Speech is fluent. Muscle strength is 5/5 in all muscle groups. Gait not tested. PSYCHIATRIC: Appropriate mood and affect for the clinical situation. 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 Plan: Patient was seen as an inpatient consultation. He was admitted about a week ago due to multiple symptoms including pain particularly within the left hip with shooting pain in the anterior left thigh to the knee, right-sided abdominal/flank discomfort over a broad area, dysphagia to solids, weight loss, fatigue. I reviewed the findings of his EGD with biopsy which demonstrated a distal esophageal tumor with biopsy consistent with poorly differentiated adenocarcinoma which is not amplified for HER2 and mismatch repair proteins are intact. I reviewed the findings of his CT brain, CT chest/abdomen/pelvis, and MRI brain which did demonstrate evidence for diffuse metastatic disease most conspicuously within the liver as well as diffusely in his osseous structures, there is also very clearly a distal esophageal mass with thickening which appears to extend into the upper stomach. Further staging with a PET scan has not been performed and he has not had MRI spine as he is not able to lay flat very long due to discomfort. I do believe that his worsening symptoms are explained by his disease, the left hip disease which is the most severe looking osseous disease is likely resulting in his shooting nerve pain and left hip discomfort. He also has a concerning looking clival lesion with some destruction of the clivus which is currently asymptomatic but I believe needs treated to offer some disease control in this area which is very critical. We did review the use of palliative radiation therapy for stage IV esophageal adenocarcinoma, we discussed potential treatment of the left hip to improve his pain, treatment of the esophageal tumor to improve swallowing as well as bony disease near the esophagus which looks fairly severe, and also treatment of the clival lesion due to the location and critical nature of this lesion. We did discuss the potential use of a stent for swallowing and discussed the pros and cons of this approach, either way I think that radiation therapy plays a role in longer term disease control. He has had shooting type nerve pain and swallowing dysfunction for at least 4 months and we discussed the potential that even with treatment to these areas he could have some permanent damage or dysfunction but goals are to improve quality of life and also prevent worsening of symptoms in these areas. We reviewed the logistics of radiation therapy including CT simulation, treatment planning, and daily fractionated treatment delivery likely for 5?10 treatments to these 3 sites. We discussed the risk, benefits, alternatives to palliative radiation therapy and addressed all questions. I did review the potential acute and chronic toxicities to treatment and these 3 sites. We did review also that following palliative radiation therapy he will need to be further assessed by medical oncology to determine if he is a good candidate for systemic therapy, we did review that he does have stage IV disease that is considered to be not curable but can be treated and that the mainstay of treatment will be systemic therapy following directed radiation therapy to the most critical areas needing palliation. Of note he does have [facility] and this is being currently worked out as to whether [facility] or if we can do treatment here, soon as we have approval we will plan to get treatment expedited. He was instructed to call with any further questions or concerns in the interim. Thank you for allowing me to participate in the management and care of your patient. If I may answer any questions in the interim, please do not hesitate to contact me at any time. Ej Mills DO, MS Front Desk Lead, Department of Radiation Oncology [facility] Coding Level of Care Code Off vis,new,level 5 Exam Problem Focused Diagnoses Malignant neoplasm of lower third of esophagus C15.5 Malignant neoplasm of esophagus location: lower third Metastatic bone tumor C79.51
--- NOTE | 2023-10-19 12:53 | VDLE_ITS ---
Reason For Study: BLE Pain RIGHT LEFT GSV is normal. GSV is normal. CFV is compressible, spontaneous, phasic, CFV is compressible, spontaneous, phasic, competent and demonstrates normal competent, and demonstrates normal augmentation. augmentation. FV is compressible, spontaneous, phasic, FV is compressible, spontaneous, phasic, competent and demonstrates normal competent and demonstrates normal augmentation. augmentation. POP V is compressible, spontaneous, phasic, Acute deep vein thrombosis is noted in the competent and demonstrates normal POP V. It is dilated and NONCOMPRESSIBLE. augmentation. Acute deep vein thrombosis is noted in the T/P Trunk is compressible. T/P Trunk. It is dilated and NONCOMPRESSIBLE. Acute deep vein thrombosis is noted in the Acute deep vein thrombosis is noted in the Gastrocnemius V. It is dilated and Gastrocnemius V. It is dilated and NONCOMPRESSIBLE. NONCOMPRESSIBLE. Acute deep vein thrombosis is noted in the Acute deep vein thrombosis is noted in the PTV. It is dilated and NONCOMPRESSIBLE. SOLEAL V. It is dilated and NONCOMPRESSIBLE. Acute deep vein thrombosis is noted in the Acute deep vein thrombosis is noted in the Per V. It is dilated and NONCOMPRESSIBLE. Per V. It is dilated and NONCOMPRESSIBLE. Procedure PTV is compressible. This is a venous duplex using B-mode, color flow and spectral Doppler. Exam performed portable in patient room. The exam was diagnostic. A preliminary report was called and/or faxed to Tressa Veliz. VL/Venous Duplex US - Jose Extrem Interpretation Summary Acute deep vein thrombosis is noted in the right gastrocnemius vein, posterior tibial vein, peroneal vein. Acute deep vein thrombosis is noted in the left popliteal vein, tibioperonelal trunk vein, gastrocnemius vein, soleal vein, peroneal vein Ordering Physician: Tressa Veliz Performed By: Aris Jacobson, RVT
--- NOTE | 2023-10-19 14:20 | PN_ITS ---
Subjective Subjective Patient seen and examined. He had no active complaints. Review systems otherwise negative. Oncology reviewed him yesterday and recommended that patient be seen by radiation oncology today. Objective Data Objective Data Vital Signs: Vital Signs Temp Pulse Resp BP Pulse Ox O2 Del Method O2 Flow Rate 98.8 F 76 16 91/64 94 Room Air 2 10/19/23 09:43 10/19/23 09:43 10/19/23 09:43 10/19/23 09:43 10/19/23 09:43 10/19/23 09:43 10/15/23 10:20 Oxygen Flow Rate (L/min) 2 Oxygen Delivery Method Room Air Weight: 188 lb 7.924 oz Body Mass Index (BMI) 27.0 Intake & Output: Intake and Output for Last 24 Hours 10/17/23 10/18/23 10/19/23 23:59 23:59 23:59 Intake Total 1220 / 1460 1258.33 / 1258.33 110 / 110 Output Total 1300 / 1750 1550 / 2650 1700 / 1700 Balance -80 / -290 -291.67 / -1391.67 -1590 / -1590 Medical Nutrition Assessment Dietitian: Malnutrition Criteria Met Start: 10/14/23 15:04 Freq: Status: Active Protocol: Document 10/18/23 12:50 RMA (Rec: 10/18/23 12:50 RMA [id number]) Nutrition Malnutrition Evidence of Malnutrition Exists Yes Malnutrition (severe): Chronic Evidenced By Suboptimal Energy Intake ( Severe),Weight Loss (Severe) Clinical Problem Chronic Disease or Condition Related Malnutrition Etiology severe, chronic malnutrition related to inadequate energy intake w/ metastatic disease Signs/Symptoms as evidenced by 22% wt loss x 3 months, estimated PO intake meeting <75% of estimated energy needs x 3 months Status Active Problem Recommendation Dietitian Recommendations/Changes Continue full liquid diet per GI. Will continue 8oz Ensure Plus High Protein TID with meals to provide additional calories/ protein. Will add magic cup BID w/ lunch and dinner. Will d/c ensure plus HP and ensure clear w/ medpass given ONS add to meal trays. May need to consider nutrition support given need for full liquid diet, wt loss significant for malnutrition. Lab / Micro Data 10/19/23 06:03 10/19/23 06:03 Labs: Laboratory Results - last 24 hr 10/19/23 06:03: WBC 9.9, RBC 3.82 L, Hgb 11.2 L, Hct 34.2 L, MCV 89.5, MCH 29.3, MCHC 32.7, RDW Std Deviation 43.8, RDW Coeff of Graham 13.3, Plt Count 284, MPV 9.8, Immature Gran % (Auto) 0.500, Neut % (Auto) 73.0 H, Lymph % (Auto) 7.8 L, York % (Auto) 13.0 H, Eos % (Auto) 5.1 H, Baso % (Auto) 0.6, Absolute Neuts (auto) 7.2, Absolute Lymphs (auto) 0.77 L, Nucleated RBC % 0, Sodium 135 L, Potassium 4.3, Chloride 102, Carbon Dioxide 29.0, Anion Gap 4 L, BUN 19 H, Creatinine 0.84, Estim Creat Clear Calc 91.73, Est GFR (MDRD) Af Amer 119, Est GFR (MDRD) Non-Af 98, BUN/Creatinine Ratio 22.7 H, Glucose 111 H, Calcium 9.8, Total Bilirubin 0.70, AST 13 L, ALT 21, Alkaline Phosphatase 170 H, Total Protein 5.9 L, Albumin 2.3 L, Globulin 3.6, Albumin/Globulin Ratio 0.6 L Micro: Microbiology 10/13/23 10:50 Mucosa - Nose Coronavirus COVID-19 PCR - Final Physical Exam Const alert, oriented x3, no apparent distress and average body habitus; Negative for healthy appearing or well nourished General Appearance: cooperative and well developed HEENT normocephalic, head/scalp atraumatic, hearing grossly normal bilaterally, moist oral mucous membranes and oropharynx normal Eyes PERRL, EOMs intact bilaterally and conjunctivae normal Eyes Narrative: EOM grossly intact, anicteric Neck no lymphadenopathy, supple and no JVD Neck Narrative: Trachea midline, no thyroid enlargement Lymph Lymphatic: no lymphadenopathy noted and no lymphedema noted Resp normal respiratory effort, normal air movement, no retractions, no use of accessory muscles and clear to auscultation bilaterally Auscultation: wheezes; Negative for rales or rhonchi Cardio regular rate, regular rhythm, S1 normal heart sound, S2 normal heart sound, no murmurs, no rub, no gallops and no clicks GI normal to inspection, nondistended, normoactive bowel sounds, soft to palpation, non-tender and non-distended Extremity normal capillary refill, no clubbing, cyanosis or edema and no calf tenderness General Extremity: no tenderness to palpation of joints or extremities Skin no rashes or lesions noted, no wounds, skin turgor normal, no jaundice, no petechiae and no mottling General Skin Exam: no breakdown Neuro oriented x3, CN's II-XII intact bilaterally, moves all extremities, no focal motor deficits, no sensory deficits noted and deep tendon reflexes 2+ bilaterally Speech: speech normal Motor Exam: strength 5/5 throughout and general weakness Psych thought process normal, cooperative and affect normal Psych Narrative: Cooperative Appearance: appropriate Assessment & Plan Assessment/Plan (1) Metastatic cancer: (2) Hypercalcemia: PLAN: Plan #Metastatic cancer, 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 * oncology consulted as well as radiation oncology, as per GI, patient may benefit from esophageal stent as he has had difficulty swallowing especially with solid foods. GI however states that they need oncology and radiation oncology input to see if a stent would be the best option for patient. * Consult placed with Dr. Celestin and Dr. Lovett. C * Oncology reviewed patient today. Appreciate recs. Awaiting radiation oncology evaluation. * #Hypercalcemia, likely related to osteolytic lesions. Improving. Will monitor. #Odynophagia and dysphagia due to suspected primary esophageal cancer: Management as above. Awaiting stent placement. #Hypokalemia: Resolved #Bilateral PE: Patient started on heparin drip initially but now on Eliquis. #Severe malnutrition: Has lost about 80 pounds within the last few months due to his difficulty swallowing. Dietitian on board. #GERD: On PPI #Hypertension: On carvedilol and lisinopril. Hydrochlorothiazide held due to hypercalcemia. #Nicotine dependence: Counseled to quit. Nicotine patch 21 mg daily. DVT prophylaxis; on eliquis Charges/Coding Visit Charges Inpatient E&M: 79196 Subs Hosp L2
[2023-10-19 14:37] VITALS: BP 126/81; PULSE 86; RESP 16; TEMP 36.9; O2SAT 92
--- NOTE | 2023-10-19 16:43 | CASEMGMT ---
ASYA ECHAVARRIA called Cherelle at the [place] to clarify if patient had to transfer to [facility] or if he could stay at [facility] for Care. Cherelle directed call to [place] billing department. Per Hiram in [place] billing. Patient has been approved for [facility] per [place] [employer]. Hiram states that patient is approved to received hospitalization for continual 30days if need from admission. Patient was approved by [facility] ref#[id number]. ASYA ECHAVARRIA updated Dr. Mills regarding approval for continued coverage for hospitalization. ASYA ECHAVARRIA updated patient and . ASYA ECHAVARRIA updated Cherelle at [facility] transfer sent and states that declination form does not need signed since stay is approved under 1703. CM will continue to follow this patient and plan for a safe discharge.
--- NOTE | 2023-10-19 16:51 | CON.PCM.SX_ITS ---
Assessment & Plan Assessment/Plan (1) Bilateral pulmonary embolism: (2) DVT of lower extremity, bilateral: PLAN: Plan I discussed with the patient and his IVC insertion procedure including risks, benefits, and recovery. All of their questions and concerns were addressed. Risks/benefits of doing nothing and proceeding without anticoagulation were also discussed. He indicates that he would like to proceed with IVC filter placement. Plan will be for IVC filter placement, given his significant pain with lying flat will need to be with deep sedation vs LMA per anesthesia recommendation. 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 NPO after midnight. HPI Consult Data Date of Consult: 10/19/23 HPI Narrative HPI Narrative: DELFINA VANESSA, is a 63 M who presented to the [facility] ER on 10/13/23 with chest and abdominal pain, in addition to recent significant weight loss, weakness, and difficulty swallowing solid foods. CT scans demonstrated extensive metastatic disease to the skeleton and liver, distal esophageal mass, small bilateral PE, and focal AAA 3.3cm. EGD was performed to biopsy esophageal mass which pathology confirmed to be invasive adenocarcinoma. He was initially started on Heparin and then transitioned to Eliquis for his small bilateral PEs; however, oncology recommends discontinuation of anticoagulation given high risk of bleeding with esophageal tumor. Their plan is for palliative radiation and potentially revisit possibility of systemic anticoagulation pending those results. They are recommending IVC filter plac ement at this time, for which we are consulted. Patient denies any prior history of VTE. He has not had any prior radiation. He does report severe pain with lying flat, barely tolerated CT he had at admission. He has to sit at nearly 90 degrees to rest comfortably. Did obtain bilateral lower extremity venous duplex which revealed bilateral lower extremity DVT up to the level of the popliteal on the left. [facility] Medical History (Updated 10/19/23 @ 17:08 by NIK Kaye) Alcohol abuse Cancer cachexia Chronic low back pain Dysphagia Esophageal cancer Family history of colon cancer Hyperlipidemia Hypertension Malignant bone pain Metastasis to liver Metastatic bone tumor Nicotine dependence Sciatica of left side Home Medications carvedilol 25 mg tablet 25 mg PO BID BLOOD PRESSURE 07/17/20 [History Last Taken 10/12/23] diclofenac sodium 1 % topical gel 4 g topical UD PRN PAIN 07/17/20 [History Last Taken 10/12/23] lisinopril 20 mg-hydrochlorothiazide 25 mg tablet 1 tab PO BID BLOOD PRESSURE 07/17/20 [History Last Taken 10/13/23] cholecalciferol (vitamin D3) 50 mcg (2,000 unit) capsule (D3-2000) 50 mcg PO DAILY SUPPLEMENT 10/13/23 [History Last Taken 10/13/23] ibuprofen 200 mg tablet 200 - 400 mg PO Q4H PAIN 10/13/23 [History Last Taken 10/13/23] omega 4-ihc-rii-fish oil 1,200 mg (144 mg-216 mg) capsule (Fish Oil) 1 cap PO DAILY SUPPLEMENT 10/13/23 [History Last Taken 10/13/23] vitamin B complex (B Complex-Vitamin B12 tablet) 1 tab PO DAILY SUPPLEMENT 10/13/23 [History Last Taken 10/13/23] Allergy/AdvReac Type Severity Reaction Status Date / Time Penicillins Allergy Mild Itching/watering Verified 10/13/23 09:56 eyes Family History Father Colon cancer Surgical History history excision benign growth left thigh History of tonsillectomy and adenoidectomy Social History (Updated 10/13/23 @ 19:[address] Kika Garcia DO) household members: spouse housing: house Smoking Status: Current every day smoker tobacco type: cigarettes alcohol intake: current alcohol intake frequency: a few times a month substance use type: does not use Medical Records Data Medical Nutrition Assessment Dietitian: Malnutrition Criteria Met Start: 10/14/23 15:04 Freq: Status: Active Protocol: Document 10/18/23 12:50 RMA (Rec: 10/18/23 12:50 RMA [id number]) Nutrition Malnutrition Evidence of Malnutrition Exists Yes Malnutrition (severe): Chronic Evidenced By Suboptimal Energy Intake ( Severe),Weight Loss (Severe) Clinical Problem Chronic Disease or Condition Related Malnutrition Etiology severe, chronic malnutrition related to inadequate energy intake w/ metastatic disease Signs/Symptoms as evidenced by 22% wt loss x 3 months, estimated PO intake meeting <75% of estimated energy needs x 3 months Status Active Problem Recommendation Dietitian Recommendations/Changes Continue full liquid diet per GI. Will continue 8oz Ensure Plus High Protein TID with meals to provide additional calories/ protein. Will add magic cup BID w/ lunch and dinner. Will d/c ensure plus HP and ensure clear w/ medpass given ONS add to meal trays. May need to consider nutrition support given need for full liquid diet, wt loss significant for malnutrition. Lab / Micro Data 10/19/23 06:03 10/19/23 06:03 Labs: Laboratory Results - last 24 hr 10/19/23 06:03: WBC 9.9, RBC 3.82 L, Hgb 11.2 L, Hct 34.2 L, MCV 89.5, MCH 29.3, MCHC 32.7, RDW Std Deviation 43.8, RDW Coeff of Graham 13.3, Plt Count 284, MPV 9.8, Immature Gran % (Auto) 0.500, Neut % (Auto) 73.0 H, Lymph % (Auto) 7.8 L, Haskell % (Auto) 13.0 H, Eos % (Auto) 5.1 H, Baso % (Auto) 0.6, Absolute Neuts (auto) 7.2, Absolute Lymphs (auto) 0.77 L, Nucleated RBC % 0, Sodium 135 L, Potassium 4.3, Chloride 102, Carbon Dioxide 29.0, Anion Gap 4 L, BUN 19 H, Creatinine 0.84, Estim Creat Clear Calc 91.73, Est GFR (MDRD) Af Amer 119, Est GFR (MDRD) Non-Af 98, BUN/Creatinine Ratio 22.7 H, Glucose 111 H, Calcium 9.8, Total Bilirubin 0.70, AST 13 L, ALT 21, Alkaline Phosphatase 170 H, Total Protein 5.9 L, Albumin 2.3 L, Globulin 3.6, Albumin/Globulin Ratio 0.6 L Imagaing Radiology Impression Venous Doppler Study 10/19/23 12:53 Interpretation Summary Acute deep vein thrombosis is noted in the right gastrocnemius vein, posterior tibial vein, peroneal vein. Acute deep vein thrombosis is noted in the left popliteal vein, tibioperonelal trunk vein, gastrocnemius vein, soleal vein, peroneal vein Ordering Physician: Tressa Veliz Performed By: Aris Jacobson RVT
[2023-10-19] MEDS: Carvedilol 25 MG Tablet PO (20:13)
[2023-10-19 20:37] VITALS: BP 137/85; PULSE 91; RESP 16; TEMP 36.6; O2SAT 94
[2023-10-20] VITALS (11 sets, daily range): BP systolic 109–154; BP diastolic 63–96; PULSE 84–102; RESP 14–20; TEMP 36.2–38.4; O2SAT 93–96; BMI 26.9
[2023-10-20] MEDS: oxyCODONE 5 MG Tablet 15 MG PO ×5 (00:12→20:37)
[2023-10-20] MEDS: Acetaminophen 500 MG Tablet 1000 MG PO ×2 (03:45→20:32)
[2023-10-20 07:51] LABS: Absolute Lymphocyte Count 0.84 X10^3/uL (0.83-4.51); Absolute Neutrophil Count 6.2 X10^3/uL (2.0-7.7); Basophil# 0.05 X10^3/uL; Basophil% 0.6 % (0-1); Eosinophil# 0.51 X10^3/uL; Eosinophils% 5.7 % (0-5); Lymphocyte # 0.84 X10^3/ul (0.83-4.51); Lymphocyte % 9.3 % (19-41); Mean Corp Hgb Conc 32.4 g/dL (32-36); Mean Corpuscular Hgb 29.5 pg (27.0-32.0); Mean Corpuscular Volume 91.2 fL (80-94); Mean Platelet Vol. 10.3 fl (6.2-12.0); Monocyte# 1.38 X10^3/uL; Monocyte% 15.3 % (0-10); NRBC Flagged by Analyzer 0 % (0-5); Neutrophil # 6.18 X10^3/uL (2.7-7.7); Neutrophil % 68.4 % (47-70); Platelet Count 334 K/mm3 (150-450); RBC Distribution Width CV 13.5 % (11.6-14.6); RBC Distribution Width SD 45.4 fl (35.1-43.9); Red Blood Count 3.73 M/mm3 (4.6-6.2)
[2023-10-20] MEDS: APIXABAN 5 MG TABLET PO ×2 (07:55→20:32)
[2023-10-20] MEDS: Lisinopril 20 MG Tablet PO (07:56)
[2023-10-20] MEDS: Carvedilol 25 MG Tablet PO ×2 (07:56→20:32)
[2023-10-20] MEDS: Lidocaine 5% Patch 1 PATCH TOPICAL (07:57)
[2023-10-20] MEDS: Pantoprazole Sodium 40 MG in 0.9% Normal Saline (100mL MB+) 100 ML 330 MG IV ×2 (07:57→20:31)
[2023-10-20] MEDS: Polyethylene Glycol 3350 17 GM PACKET PO ×2 (07:58→20:32)
[2023-10-20 08:23] LABS: ALB/GLOB Ratio 0.6 RATIO (0.9-2.4); AST(SGOT) 13 U/L (15-37); Alanine Aminotransfer ALT/SGPT 21 U/L (16-61); Albumin, Serum 2.3 g/dL (3.2-5.0); Alkaline Phosphatase 192 U/L (45-117); Anion Gap 1 (5-15); BUN 20 mg/dL (7-18); Calcium,Total 10.3 mg/dL (8.5-10.1); Chloride 100 mmol/L (98-107); Creatinine, Serum 0.91 mg/dL (0.70-1.30); EST Glomerular Filtration Rate 89 mL/min (>60); Est Glom Filt Rate - Afr Amer 108 mL/min (>60); Estimated Creatinine Clearance 84.68 ml/min; Globulin 3.9 g/dL (2.2-4.2); Glucose 94 mg/dL (74-106); Potassium 4.6 mmol/L (3.5-5.1); Protein, Total 6.2 g/dL (6.4-8.2); Sodium Level 130 mmol/L (136-145)
[2023-10-20] MEDS: HYDROmorphone 1 MG/ML Syringe IV (10:13)
--- NOTE | 2023-10-20 10:30 | CASEMGMT ---
ASYA ECHAVARRIA in to discuss needs at discharge with , patient at procedure. states patient is not service connected. RN JERICHO and discussed that patient has access to walker, BSC, and transport wheelchair at home. states she has been in contact with PCP at [facility] and has left messages. interested in HHC and additional help in home. ASYA ECHAVARRIA informed that SW could reach out to SW at [facility] to assist with setup. had no further questions or concerns at this time.
--- NOTE | 2023-10-20 11:21 | CASEMGMT ---
Patient is going to need more assistance at home. Patient does not have insurance other than [facility]. BALDO obtained patient's [facility] SW in [place]. Laquita Erickson [phone] ext. [phone] and fax [phone]. BALDO completed a [facility] form and faxed it to Laquita. BALDO also called Laquita and left her a voice mail explaining patient's situation and asked if she could call BALDO back. Bridgette Miller LACEMAKERRudolph RAHMAN
--- NOTE | 2023-10-20 13:06 | CASEMGMT ---
manager control completed an assessment with patient and he does not have a Healthcare Living Will or Healthcare Power of Power Barker Operator. Patient did not express interest in completing documents. Bridgette RAHMAN
--- NOTE | 2023-10-20 13:22 | PN_ITS ---
Subjective Subjective Patient seen and examined. He had no active complaints. was by his bedside. She is concerned about patient's weakness and inability to ambulate and says she cannot look after him at home. He is to get an IVC filter inserted today. Review of systems is otherwise negative. Objective Data Objective Data Vital Signs: Vital Signs Temp Pulse Resp BP Pulse Ox O2 Del Method O2 Flow Rate 98.1 F 84 14 123/79 H 93 Room Air 2 10/20/23 07:53 10/20/23 07:53 10/20/23 07:53 10/20/23 07:53 10/20/23 07:53 10/20/23 07:53 10/15/23 10:20 Oxygen Flow Rate (L/min) 2 Oxygen Delivery Method Room Air Weight: 187 lb 6.287 oz Body Mass Index (BMI) 26.9 Intake & Output: Intake and Output for Last 24 Hours 10/18/23 10/19/23 10/20/23 23:59 23:59 23:59 Intake Total 1258.33 / 1258.33 460 / 460 350 / 350 Output Total 1550 / 2650 2750 / 2750 600 / 600 Balance -291.67 / -1391.67 -2290 / -2290 -250 / -250 Medical Nutrition Assessment Dietitian: Malnutrition Criteria Met Start: 10/14/23 15:04 Freq: Status: Active Protocol: Document 10/18/23 12:50 RMA (Rec: 10/18/23 12:50 RMA [id number]) Nutrition Malnutrition Evidence of Malnutrition Exists Yes Malnutrition (severe): Chronic Evidenced By Suboptimal Energy Intake ( Severe),Weight Loss (Severe) Clinical Problem Chronic Disease or Condition Related Malnutrition Etiology severe, chronic malnutrition related to inadequate energy intake w/ metastatic disease Signs/Symptoms as evidenced by 22% wt loss x 3 months, estimated PO intake meeting <75% of estimated energy needs x 3 months Status Active Problem Recommendation Dietitian Recommendations/Changes Continue full liquid diet per GI. Will continue 8oz Ensure Plus High Protein TID with meals to provide additional calories/ protein. Will add magic cup BID w/ lunch and dinner. Will d/c ensure plus HP and ensure clear w/ medpass given ONS add to meal trays. May need to consider nutrition support given need for full liquid diet, wt loss significant for malnutrition. Lab / Micro Data 10/20/23 06:40 10/20/23 06:40 Labs: Laboratory Results - last 24 hr 10/20/23 06:40: WBC 9.0, RBC 3.73 L, Hgb 11.0 L, Hct 34.0 L, MCV 91.2, MCH 29.5, MCHC 32.4, RDW Std Deviation 45.4 H, RDW Coeff of Graham 13.5, Plt Count 334, MPV 10.3, Immature Gran % (Auto) 0.700, Neut % (Auto) 68.4, Lymph % (Auto) 9.3 L, [place] % (Auto) 15.3 H, Eos % (Auto) 5.7 H, Baso % (Auto) 0.6, Absolute Neuts (auto) 6.2, Absolute Lymphs (auto) 0.84, Nucleated RBC % 0, Sodium 130 L, Potassium 4.6, Chloride 100, Carbon Dioxide 29.0, Anion Gap 1 L, BUN 20 H, Creatinine 0.91, Estim Creat Clear Calc 84.68, Est GFR (MDRD) Af Amer 108, Est GFR (MDRD) Non-Af 89, BUN/Creatinine Ratio 22.0 H, Glucose 94, Calcium 10.3 H, Total Bilirubin 0.90, AST 13 L, ALT 21, Alkaline Phosphatase 192 H, Total Protein 6.2 L, Albumin 2.3 L, Globulin 3.9, Albumin/Globulin Ratio 0.6 L Micro: Microbiology 10/13/23 10:50 Mucosa - Nose Coronavirus COVID-19 PCR - Final Radiography Diagnostic Testing: Radiology Impression Venous Doppler Study 10/19/23 12:53 Interpretation Summary Acute deep vein thrombosis is noted in the right gastrocnemius vein, posterior tibial vein, peroneal vein. Acute deep vein thrombosis is noted in the left popliteal vein, tibioperonelal trunk vein, gastrocnemius vein, soleal vein, peroneal vein Ordering Physician: Tressa Veliz Performed By: Indira, Aris, RVT Physical Exam Const alert, oriented x3, no apparent distress and average body habitus; Negative for healthy appearing or well nourished Constitutional Narrative: Oriented General Appearance: cooperative and well developed HEENT normocephalic, head/scalp atraumatic, hearing grossly normal bilaterally, moist oral mucous membranes and oropharynx normal Eyes PERRL, EOMs intact bilaterally and conjunctivae normal Neck no lymphadenopathy, supple and no JVD Neck Narrative: Trachea midline Lymph Lymphatic: no lymphadenopathy noted and no lymphedema noted Resp normal respiratory effort, normal air movement, no retractions, no use of accessory muscles and clear to auscultation bilaterally Auscultation: Negative for rales or rhonchi Cardio regular rate, regular rhythm, S1 normal heart sound, S2 normal heart sound and no murmurs GI normal to inspection, nondistended, normoactive bowel sounds, soft to palpation, non-tender and non-distended Extremity normal capillary refill, no clubbing, cyanosis or edema and no calf tenderness Extremity Narrative: General Extremity: no tenderness to palpation of joints or extremities Skin no rashes or lesions noted, no wounds, skin turgor normal, no jaundice, no petechiae and no mottling General Skin Exam: no breakdown Neuro oriented x3, CN's II-XII intact bilaterally, moves all extremities, no focal motor deficits, no sensory deficits noted and deep tendon reflexes 2+ bilaterally Speech: speech normal Motor Exam: strength 5/5 throughout and general weakness Psych thought process normal, cooperative and affect normal Psych Narrative: Cooperative Appearance: appropriate Assessment & Plan Assessment/Plan (1) Metastatic cancer: (2) Hypercalcemia: PLAN: Plan #Metastatic cancer, 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 * oncology consulted as well as radiation oncology, as per GI, patient may benefit from esophageal stent as he has had difficulty swallowing especially with solid foods. GI however states that they need oncology and radiation oncology input to see if a stent would be the best option for patient. * Consult placed with Dr. Celestin and Dr. Lovett. C * Oncology reviewed patient today. Appreciate recs. * radiation oncology says patient couldnt lie flat in the radiation oncology suite for evaluation today due to pain. WIll therefore optimise pain meds and add on gabapentin to help with pain. * #Hypercalcemia, likely related to osteolytic lesions. Improving. Will monitor. #Odynophagia and dysphagia due to suspected primary esophageal cancer: Management as above. Awaiting stent placement. #Hypokalemia: Resolved #Bilateral PE: Patient started on heparin drip initially but now on Eliquis. #Severe malnutrition: Has lost about 80 pounds within the last few months due to his difficulty swallowing. Dietitian on board. #GERD: On PPI #Hypertension: On carvedilol and lisinopril. Hydrochlorothiazide held due to hypercalcemia. #Nicotine dependence: Counseled to quit. Nicotine patch 21 mg daily. DVT prophylaxis; on eliquis Charges/Coding Visit Charges Inpatient E&M: 25716 Subs Hosp L2
--- NOTE | 2023-10-20 16:01 | PCM.OPRPT ---
Report of Operation Date of Procedure: 10/20/23 Pre-Operative Diagnosis: DVT, PE Post-Operative Diagnosis: same Surgery/Procedure Performed:: Insertion inferior vena cava filter Surgeon: Jignesh Coronado Type of Anesthesia: General Estimated Blood Loss (mL): 1 Description of Procedure: HPI: Patient is a 63-year-old male with metastatic esophageal cancer newly diagnosed as well as incidental finding of pulmonary emboli and bilateral lower extremity DVT. Given the nature of his primary lesion there is concern that anticoagulation could result in significant GI hemorrhage so he is taken now for an IVC filter placement. He is unable to lay flat due to significant back pain from his metastatic lesions so general anesthetic will be utilized. Description of procedure: Upon obtaining informed consent and verification correct patient procedure site patient taken to the Medicaid Billing Specialist where he was placed under general esthesia. Was then positioned prepped and draped you sterile fashion a timeout was performed. Under ultrasound guidance the right common femoral vein was accessed in retrograde fashion with a micropuncture needle wire. This was exchanged for micropuncture sheath through which injection ilio caval venogram was performed revealing satisfactory positioning with no extravasation dissection as well as revealed normal caliber patent right iliac vein system. Bentson wire was then advanced and the micropuncture sheath exchanged out for the dilator for the Cook delivery sheath followed by the Cook Tulip delivery sheath. This was then advanced in position at the elbow to vertebral body and subtraction venacavogram performed revealing normal caliber vena cava with no thrombus present, as well as revealed the position of the renal vein confluence. The dilator then withdrawn and the Cook Selvin tulip inferior vena cava filter was advanced in position deployed below the lowest renal vein. Completion venacavogram confirmed satisfactory positioning with some tilt though overall satisfactory positioning. The sheath was then withdrawn and pressure held after which patient awakened anesthesia taken to the recovery room with plans to return to the medical.
[2023-10-21] MEDS: oxyCODONE 5 MG Tablet 15 MG PO ×6 (00:16→20:24)
[2023-10-21 03:00] VITALS: BP 110/58; PULSE 83; RESP 16; TEMP 36.2; O2SAT 94
[2023-10-21 04:43] VITALS: BMI 26.8
[2023-10-21 07:07] LABS: Absolute Lymphocyte Count 0.56 X10^3/uL (0.83-4.51); Absolute Neutrophil Count 8.1 X10^3/uL (2.0-7.7); Basophil# 0.03 X10^3/uL; Basophil% 0.3 % (0-1); Eosinophil# 0.34 X10^3/uL; Eosinophils% 3.3 % (0-5); Hematocrit 34.4 % (40-54); Hemoglobin 11.1 g/dL (13.0-16.5); Lymphocyte # 0.56 X10^3/ul (0.83-4.51); Lymphocyte % 5.4 % (19-41); Mean Corp Hgb Conc 32.3 g/dL (32-36); Mean Corpuscular Hgb 29.3 pg (27.0-32.0); Mean Corpuscular Volume 90.8 fL (80-94); Mean Platelet Vol. 9.9 fl (6.2-12.0); Monocyte# 1.32 X10^3/uL; Monocyte% 12.8 % (0-10); NRBC Flagged by Analyzer 0 % (0-5); Neutrophil # 8.06 X10^3/uL (2.7-7.7); Neutrophil % 77.8 % (47-70); POSITIVE DIFFERENTIAL YES; Platelet Count 349 K/mm3 (150-450); RBC Distribution Width CV 13.4 % (11.6-14.6); RBC Distribution Width SD 44.8 fl (35.1-43.9); Red Blood Count 3.79 M/mm3 (4.6-6.2); White Blood Count 10.4 K/mm3 (4.4-11.0)
[2023-10-21 07:12] LABS: Differential Indicated SCAN CRITERIA MET
[2023-10-21 07:37] LABS: ALB/GLOB Ratio 0.6 RATIO (0.9-2.4); AST(SGOT) 15 U/L (15-37); Alanine Aminotransfer ALT/SGPT 22 U/L (16-61); Albumin, Serum 2.3 g/dL (3.2-5.0); Alkaline Phosphatase 190 U/L (45-117); Anion Gap 1 (5-15); BUN 20 mg/dL (7-18); BUN/Creat Ratio 21.1 RATIO (10-20); Chloride 101 mmol/L (98-107); Creatinine, Serum 0.95 mg/dL (0.70-1.30); EST Glomerular Filtration Rate 85 mL/min (>60); Est Glom Filt Rate - Afr Amer 103 mL/min (>60); Estimated Creatinine Clearance 81.11 ml/min; Globulin 3.8 g/dL (2.2-4.2); Glucose 104 mg/dL (74-106); Potassium 4.2 mmol/L (3.5-5.1); Protein, Total 6.1 g/dL (6.4-8.2); Sodium Level 132 mmol/L (136-145)
[2023-10-21 07:59] VITALS: BP 117/73; PULSE 85; RESP 18; TEMP 37; O2SAT 98
[2023-10-21 08:00] VITALS: O2SAT 98
[2023-10-21] MEDS: Gabapentin 100 MG Capsule 200 MG PO ×3 (08:03→16:37)
[2023-10-21] MEDS: Lidocaine 5% Patch 1 PATCH TOPICAL (08:05)
[2023-10-21] MEDS: APIXABAN 5 MG TABLET PO ×2 (08:07→20:23)
[2023-10-21] MEDS: Pantoprazole Sodium 40 MG in 0.9% Normal Saline (100mL MB+) 100 ML 330 MG IV ×2 (08:09→20:23)
[2023-10-21] MEDS: Lisinopril 20 MG Tablet PO (08:09)
[2023-10-21] MEDS: Carvedilol 25 MG Tablet PO ×2 (08:10→20:24)
[2023-10-21] MEDS: Polyethylene Glycol 3350 17 GM PACKET PO ×2 (08:12→20:24)
[2023-10-21] MEDS: 0.9% Saline Lock 10 ML Syringe IV ×2 (08:45→14:18)
[2023-10-21] MEDS: HYDROmorphone 1 MG/ML Syringe IV ×2 (08:46→14:18)
--- NOTE | 2023-10-21 08:53 | NURSING ---
Brought down via bed for Radiation mask fitting. oxygen maintained via portable tank at 3L NC.
--- NOTE | 2023-10-21 09:41 | CASEMGMT ---
BALDO has not been able to get BALDO's fax to go through to the [place] Yosvany Coelho. BALDO called Laquita and left her a voice mail requesting a return call and also letting her know BALDO is unable to get the fax to go through. Bridgette Miller MAINTENANCE CONTROLLER LACEY
[2023-10-21] MEDS: Acetaminophen 500 MG Tablet 1000 MG PO ×2 (11:26→18:54)
--- NOTE | 2023-10-21 11:55 | PN.SURG_ITS ---
Subjective Subjective Patient is seen resting comfortably in bed on his computer. He feels he did well with the anesthesia and the procedure yesterday. He denies any pain, swelling, bruising, drainage at the R groin access site. Objective Data Objective Data Vital Signs: Vital Signs Temp Pulse Resp BP Pulse Ox O2 Del Method O2 Flow Rate 98.6 F 85 18 117/73 98 Nasal Cannula 4 10/21/23 07:59 10/21/23 07:59 10/21/23 07:59 10/21/23 07:59 10/21/23 08:00 10/21/23 08:00 10/21/23 08:00 Oxygen Flow Rate (L/min) 4 Oxygen Delivery Method Nasal Cannula Weight: 186 lb 11.704 oz Body Mass Index (BMI) 26.8 Intake & Output: Intake and Output for Last 24 Hours 10/19/23 10/20/23 10/21/23 23:59 23:59 23:59 Intake Total 460 / 460 700 / 940 590 / 590 Output Total 2750 / 2750 1000 / 1400 800 / 800 Balance -2290 / -2290 -300 / -460 -210 / -210 Medical Nutrition Assessment Dietitian: Malnutrition Criteria Met Start: 10/14/23 15 :04 Freq: Status: Active Protocol: Document 10/18/23 12:50 RMA (Rec: 10/18/23 12:50 RMA [id number]) Nutrition Malnutrition Evidence of Malnutrition Exists Yes Malnutrition (severe): Chronic Evidenced By Suboptimal Energy Intake ( Severe),Weight Loss (Severe) Clinical Problem Chronic Disease or Condition Related Malnutrition Etiology severe, chronic malnutrition related to inadequate energy intake w/ metastatic disease Signs/Symptoms as evidenced by 22% wt loss x 3 months, estimated PO intake meeting <75% of estimated energy needs x 3 months Status Active Problem Recommendation Dietitian Recommendations/Changes Continue full liquid diet per GI. Will continue 8oz Ensure Plus High Protein TID with meals to provide additional calories/ protein. Will add magic cup BID w/ lunch and dinner. Will d/c ensure plus HP and ensure clear w/ medpass given ONS add to meal trays. May need to consider nutrition support given need for full liquid diet, wt loss significant for malnutrition. Lab / Micro Data 10/21/23 06:05 10/21/23 06:05 Labs: Laboratory Results - last 24 hr 10/21/23 06:05: WBC 10.4, RBC 3.79 L, Hgb 11.1 L, Hct 34.4 L, MCV 90.8, MCH 29.3, MCHC 32.3, RDW Std Deviation 44.8 H, RDW Coeff of Graham 13.4, Plt Count 349, MPV 9.9, Immature Gran % (Auto) 0.400, Neut % (Auto) 77.8 H, Lymph % (Auto) 5.4 L, [place] % (Auto) 12.8 H, Eos % (Auto) 3.3, Baso % (Auto) 0.3, Absolute Neuts (auto) 8.1 H, Absolute Lymphs (auto) 0.56 L, Nucleated RBC % 0, Differential Comment COMMENT, Sodium 132 L, Potassium 4.2, Chloride 101, Carbon Dioxide 30.0, Anion Gap 1 L, BUN 20 H, Creatinine 0.95, Estim Creat Clear Calc 81.11, Est GFR (MDRD) Af Amer 103, Est GFR (MDRD) Non-Af 85, BUN/Creatinine Ratio 21.1 H, Glucose 104, Calcium 10.0, Total Bilirubin 1.20 H, AST 15, ALT 22, Alkaline Phosphatase 190 H, Total Protein 6.1 L, Albumin 2.3 L, Globulin 3.8, Albumin/Globulin Ratio 0.6 L Micro: Microbiology 10/13/23 10:50 Mucosa - Nose Coronavirus COVID-19 PCR - Final Physical Exam Const oriented x3 and no apparent distress Resp normal respiratory effort Cardio regular rate and regular rhythm Extremity normal to inspection and no clubbing, cyanosis or edema Extremity Narrative: R groin access site with dressing C/D/I. No swelling, ecchymosis, hematoma, erythema. Assessment & Plan Assessment/Plan (1) Bilateral pulmonary embolism: (2) DVT of lower extremity, bilateral: PLAN: Plan He is s/p IVC filter insertion 10/20/23, the procedure went well. No issues at the R groin access site. Dressing can be removed tomorrow and then okay to be open to air. Will coordinate outpatient follow-up in the office in 3-4 weeks.
--- NOTE | 2023-10-21 12:22 | PN_ITS ---
Subjective Subjective Patient seen and examined. He is still complaining of back pain, which precluded him from lying down flat for radiation yesterday. Review of systems is otherwise negative. Objective Data Objective Data Vital Signs: Vital Signs Temp Pulse Resp BP Pulse Ox O2 Del Method O2 Flow Rate 98.6 F 85 18 117/73 98 Nasal Cannula 4 10/21/23 07:59 10/21/23 07:59 10/21/23 07:59 10/21/23 07:59 10/21/23 08:00 10/21/23 08:00 10/21/23 08:00 Oxygen Flow Rate (L/min) 4 Oxygen Delivery Method Nasal Cannula Weight: 186 lb 11.704 oz Body Mass Index (BMI) 26.8 Intake & Output: Intake and Output for Last 24 Hours 10/19/23 10/20/23 10/21/23 23:59 23:59 23:59 Intake Total 460 / 460 700 / 940 1010 / 1010 Output Total 2750 / 2750 1000 / 1400 1100 / 1100 Balance -2290 / -2290 -300 / -460 -90 / -90 Medical Nutrition Assessment Dietitian: Malnutrition Criteria Met Start: 10/14/23 15:04 Freq: Status: Active Protocol: Document 10/18/23 12:50 RMA (Rec: 10/18/23 12:50 RMA [id number]) Nutrition Malnutrition Evidence of Malnutrition Exists Yes Malnutrition (severe): Chronic Evidenced By Suboptimal Energy Intake ( Severe),Weight Loss (Severe) Clinical Problem Chronic Disease or Condition Related Malnutrition Etiology severe, chronic malnutrition related to inadequate energy intake w/ metastatic disease Signs/Symptoms as evidenced by 22% wt loss x 3 months, estimated PO intake meeting <75% of estimated energy needs x 3 months Status Active Problem Recommendation Dietitian Recommendations/Changes Continue full liquid diet per GI. Will continue 8oz Ensure Plus High Protein TID with meals to provide additional calories/ protein. Will add magic cup BID w/ lunch and dinner. Will d/c ensure plus HP and ensure clear w/ medpass given ONS add to meal trays. May need to consider nutrition support given need for full liquid diet, wt loss significant for malnutrition. Lab / Micro Data 10/21/23 06:05 10/21/23 06:05 Labs: Laboratory Results - last 24 hr 10/21/23 06:05: WBC 10.4, RBC 3.79 L, Hgb 11.1 L, Hct 34.4 L, MCV 90.8, MCH 29.3, MCHC 32.3, RDW Std Deviation 44.8 H, RDW Coeff of [place] 13.4, Plt Count 349, MPV 9.9, Immature Gran % (Auto) 0.400, Neut % (Auto) 77.8 H, Lymph % (Auto) 5.4 L, [place] % (Auto) 12.8 H, Eos % (Auto) 3.3, Baso % (Auto) 0.3, Absolute Neuts (auto) 8.1 H, Absolute Lymphs (auto) 0.56 L, Nucleated RBC % 0, Differential Comment COMMENT, Sodium 132 L, Potassium 4.2, Chloride 101, Carbon Dioxide 30.0, Anion Gap 1 L, BUN 20 H, Creatinine 0.95, Estim Creat Clear Calc 81.11, Est GFR (MDRD) Af Amer 103, Est GFR (MDRD) Non-Af 85, BUN/Creatinine Ratio 21.1 H, Glucose 104, Calcium 10.0, Total Bilirubin 1.20 H, AST 15, ALT 22, Alkaline Ph osphatase 190 H, Total Protein 6.1 L, Albumin 2.3 L, Globulin 3.8, Albumin/Globulin Ratio 0.6 L Micro: Microbiology 10/13/23 10:50 Mucosa - Nose Coronavirus COVID-19 PCR - Final Physical Exam Const alert, oriented x3, no apparent distress and average body habitus; Negative for healthy appearing or well nourished Constitutional Narrative: Oriented General Appearance: cooperative and well developed HEENT normocephalic, head/scalp atraumatic, hearing grossly normal bilaterally, moist oral mucous membranes and oropharynx normal Eyes PERRL, EOMs intact bilaterally and conjunctivae normal Neck no lymphadenopathy, supple and no JVD Neck Narrative: Trachea midline Lymph Lymphatic: no lymphadenopathy noted and no lymphedema noted Resp normal respiratory effort, normal air movement, no retractions, no use of acce ssory muscles and clear to auscultation bilaterally Auscultation: wheezes; Negative for rales or rhonchi Cardio regular rate, regular rhythm, S1 normal heart sound, S2 normal heart sound, no murmurs, no rub, no gallops and no clicks GI normal to inspection, nondistended, normoactive bowel sounds, soft to palpation, non-tender and non-distended Extremity normal capillary refill, no clubbing, cyanosis or edema and no calf tenderness Extremity Narrative: General Extremity: no tenderness to palpation of joints or extremities Skin no rashes or lesions noted, no wounds, skin turgor normal, no jaundice, no petechiae and no mottling General Skin Exam: no breakdown Neuro oriented x3, CN's II-XII intact bilaterally, moves all extremities, no focal motor deficits, no sensory deficits noted and deep tendon reflexes 2+ bilaterally Speech: speech normal Motor Exam: strength 5/5 throughout and general weakness Psych thought process normal, cooperative and affect normal Psych Narrative: Cooperative Appearance: appropriate Assessment & Plan Assessment/Plan (1) Metastatic cancer: (2) Hypercalcemia: PLAN: Plan #Metastatic cancer, 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 * oncology consulted as well as radiation oncology, as per GI, patient may benefit from esophageal stent as he has had difficulty swallowing especially with solid foods. GI however states that they need oncology and radiation oncology input to see if a stent would be the best option for patient. * Consult placed with Dr. Celestin and Dr. Lovett. C * Oncology reviewed patient today. Appreciate recs. * radiation oncology says patient couldnt lie flat in the radiation oncology suite for evaluation today due to pain. Gabapentin and IV dilaudid added on. Patient still having severe pain * discussed with radiation oncology; per discussion, patient still unable to lie down flat today due to pain. Will discuss with patient about the option for hospice. * #Hypercalcemia, likely related to osteolytic lesions. resolved. #Odynophagia and dysphagia due to suspected primary esophageal cancer: Management as above. Awaiting stent placement. #Hypokalemia: Resolved #Bilateral PE: Patient started on heparin drip initially but now on Eliquis. had IVC filter inserted yesterday. #Severe malnutrition: Has lost about 80 pounds within the last few months due to his difficulty swallowing. Dietitian on board. #GERD: On PPI #Hypertension: On carvedilol and lisinopril. Hydrochlorothiazide held due to hypercalcemia. #Nicotine dependence: Counseled to quit. Nicotine patch 21 mg daily. DVT prophylaxis; on eliquis Charges/Coding Visit Charges Inpatient E&M: 95735 Subs Hosp L2
--- NOTE | 2023-10-21 12:38 | CASEMGMT ---
BALDO received a call from Laquita at the [facility]. Laquita asked that SW send the GEC and PT/OT notes with recommendations for equipment and how often patient will need therapy when discharged. She can get those things started. BALDO did figure out SW had the fax number wrong. BALDO faxed GEC and PT note recommending a wheeled walker. Bridgette RAHMAN
[2023-10-21 14:00] VITALS: BP 92/67; PULSE 88; RESP 18; TEMP 37.4; O2SAT 96
--- NOTE | 2023-10-21 16:23 | CHAPLAIN ---
Type of Pastoral Visit ___ Initial Visit _x__ Follow-up Visit ___ On-call Visit ___ General Patient Visit ___ Spiritual Assessment ___ Family Conference ___ Bereavement ___ Rapid Response ___ Code Blue ___ Other (describe below) Pastoral Care Referral From _x__ Patient _x__ Family ___ Nurse ___ Physician ___ Mixer Runner ___ Substation Operator Automatic ___ Other (describe below) Sacrament/Intervention _x__ Active listening ___ Anointing ___ Cheondoism ___ Bereavement ___ Communion _x__ Krystle exploration ___ _x__ Life review _x__ Prayer ___ Reconciliation ___ Sacrament of Sick _x__ Supportive presence ___ Wedding ___ Other (describe below) Pastoral Comments patient talks about the state of his treatment decisions going forward and his first desire of being able to walk on his own and leave the hospital; pt is processing his mortality as expected and is open to discussions and feelings on this; spouse is concerned about the pt's spiritual state of mind; both request a follow up visit next week if possible
[2023-10-21 16:38] VITALS: BP 102/79; PULSE 84
[2023-10-21 22:00] VITALS: BP 104/53; PULSE 77; RESP 16; TEMP 36.6; O2SAT 97
[2023-10-22] MEDS: oxyCODONE 5 MG Tablet 15 MG PO ×6 (01:18→22:25)
[2023-10-22 03:00] VITALS: BP 102/54; PULSE 82; RESP 16; TEMP 36.6; O2SAT 98
[2023-10-22] MEDS: Acetaminophen 500 MG Tablet 1000 MG PO ×3 (04:13→18:23)
[2023-10-22 06:00] VITALS: BMI 26.8
[2023-10-22 09:00] VITALS: BP 106/70; PULSE 79; RESP 18; TEMP 36.6; O2SAT 96
[2023-10-22] MEDS: Gabapentin 100 MG Capsule 200 MG PO ×3 (09:00→17:19)
[2023-10-22] MEDS: Carvedilol 25 MG Tablet PO ×2 (09:00→22:26)
[2023-10-22] MEDS: Polyethylene Glycol 3350 17 GM PACKET PO ×2 (09:02→22:27)
[2023-10-22] MEDS: Lidocaine 5% Patch 1 PATCH TOPICAL (09:03)
[2023-10-22] MEDS: APIXABAN 5 MG TABLET PO ×2 (09:03→22:27)
[2023-10-22] MEDS: Pantoprazole Sodium 40 MG in 0.9% Normal Saline (100mL MB+) 100 ML 330 MG IV ×2 (09:17→22:27)
--- NOTE | 2023-10-22 12:15 | PN_ITS ---
Subjective Subjective Patient seen and examined. He had no complaints. He was still unable to lie down flat for deviation. Patient is not leaning towards hospice. Review of symptoms otherwise negative. Objective Data Objective Data Vital Signs: Vital Signs Temp Pulse Resp BP Pulse Ox O2 Del Method O2 Flow Rate 98 F 79 18 106/70 96 Nasal Cannula 2 10/22/23 09:00 10/22/23 09:00 10/22/23 09:00 10/22/23 09:00 10/22/23 09:00 10/22/23 09:00 10/22/23 09:00 Oxygen Flow Rate (L/min) 2 Oxygen Delivery Method Nasal Cannula Weight: 186 lb 15.232 oz Body Mass Index (BMI) 26.8 Intake & Output: Intake and Output for Last 24 Hours 10/20/23 10/21/23 10/22/23 23:59 23:59 23:59 Intake Total 700 / 940 1480 / 1720 710 / 710 Output Total 1000 / 1400 1400 / 1700 875 / 875 Balance -300 / -460 80 / 20 -165 / -165 Medical Nutrition Assessment Dietitian: Malnutrition Criteria Met Start: 10/14/23 15:04 Freq: Status: Active Protocol: Document 10/18/23 12:50 RMA (Rec: 10/18/23 12:50 RMA [id number]) Nutrition Malnutrition Evidence of Malnutrition Exists Yes Malnutrition (severe): Chronic Evidenced By Suboptimal Energy Intake ( Severe),Weight Loss (Severe) Clinical Problem Chronic Disease or Condition Related Malnutrition Etiology severe, chronic malnutrition related to inadequate energy intake w/ metastatic disease Signs/Symptoms as evidenced by 22% wt loss x 3 months, estimated PO intake meeting <75% of estimated energy needs x 3 months Status Active Problem Recommendation Dietitian Recommendations/Changes Continue full liquid diet per GI. Will continue 8oz Ensure Plus High Protein TID with meals to provide additional calories/ protein. Will add magic cup BID w/ lunch and dinner. Will d/c ensure plus HP and ensure clear w/ medpass given ONS add to meal trays. May need to consider nutrition support given need for full liquid diet, wt loss significant for malnutrition. Lab / Micro Data 10/21/23 06:05 10/21/23 06:05 Micro: Microbiology 10/13/23 10:50 Mucosa - Nose Coronavirus COVID-19 PCR - Final Physical Exam Const alert, oriented x3, no apparent distress and average body habitus; Negative for healthy appearing or well nourished Constitutional Narrative: Oriented General Appearance: cooperative and well developed HEENT normocephalic, head/scalp atraumatic, hearing grossly normal bilaterally, moist oral mucous membranes and oropharynx normal Eyes PERRL, EOMs intact bilaterally and conjunctivae normal Eyes Narrative: EOM grossly intact, anicteric Neck no lymphadenopathy, supple and no JVD Lymph Lymphatic: no lymphadenopathy noted and no lymphedema noted Resp normal respiratory effort, normal air movement, no retractions, no use of accessory muscles and clear to auscultation bilaterally Auscultation: Negative for rales or rhonchi Cardio regular rate, regular rhythm, S1 normal heart sound, S2 normal heart sound, no murmurs, no rub, no gallops and no clicks GI normal to inspection, nondistended, normoactive bowel sounds, soft to palpation, non-tender and non-distended Extremity normal capillary refill, no clubbing, cyanosis or edema and no calf tenderness Extremity Narrative: General Extremity: no tenderness to palpation of joints or extremities Skin no rashes or lesions noted, no wounds, skin turgor normal, no jaundice, no petechiae and no mottling General Skin Exam: no breakdown Neuro oriented x3, CN's II-XII intact bilaterally, moves all extremities, no focal motor deficits, no sensory deficits noted and deep tendon reflexes 2+ bilaterally Neuro Narrative: No overt focal deficits appreciated Speech: speech normal Motor Exam: strength 5/5 throughout and general weakness Psych thought process normal, cooperative and affect normal Psych Narrative: Cooperative Appearance: appropriate Assessment & Plan Assessment/Plan (1) Metastatic cancer: (2) Hypercalcemia: PLAN: Plan #Metastatic cancer, suspected primary is esophagus * CT of the abdomen, chest and pelvis showed extensive skeletal metastatic di sease with severe osteolytic of several vertebrae and mets to the liver, small bilateral PE and esophageal thickening with small hiatal hernia * GI on board; had EGD for which showed an esophageal mass, 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 * oncology consulted as well as radiation oncology, as per GI, patient may benefit from esophageal stent as he has had difficulty swallowing especially with solid foods. GI however states that they need oncology and radiation oncology input to see if a stent would be the best option for patient. * oncology on board. * radiation oncology says patient couldnt lie flat in the radiation oncology suite for evaluation today due to pain. Gabapentin and IV dilaudid added on. Patient still having severe pain * discussed with radiation oncology; per discussion, patient still unable to lie down flat today due to pain. Will discuss with patient about the option for hospice. * Patient now leaning towards hospice. Will consult hospice and palliative care. * Discussed with GI about stents to help with the swelling. * #Hypercalcemia, likely related to osteolytic lesions. resolved. #Odynophagia and dysphagia due to suspected primary esophageal cancer: Management as above. Awaiting stent placement. #Hypokalemia: Resolved #Bilateral PE: Patient started on heparin drip initially but now on Eliquis. had IVC filter inserted yesterday. #Severe malnutrition: Has lost about 80 pounds within the last few months due to his difficulty swallowing. Dietitian on board. #GERD: On PPI #Hypertension: On carvedilol and lisinopril. Hydrochlorothiazide held due to hypercalcemia. #Nicotine dependence: Counseled to quit. Nicotine patch 21 mg daily. DVT prophylaxis; on eliquis Disposition: consult hospice today Charges/Coding Visit Charges Inpatient E&M: 97904 Subs Hosp L2
[2023-10-22 15:00] VITALS: BP 128/55; PULSE 78; RESP 18; TEMP 36.4; O2SAT 94
--- NOTE | 2023-10-22 16:26 | CASEMGMT ---
Patient is agreeable to Hospice as long as he can get Palliative Radiation. BALDO spoke with Zoe at Hospice and she said usually they will cover Palliative Radiation. Zoe said they also have to get the okay from the [facility] since [facility]. BALDO told Zoe BALDO has been talking with Robert at the [facility]. BALDO sent the referral to Hospice. Zoe will send a Hospice nurse to talk with patient and his . BALDO spoke with patient and his and let them know this information. They were agreeable. BALDO called BALDO Coelho at [facility] and left her a voice mail letting her know patient is looking to go Hospice. BALDO quickly received a return call from Everett another [facility] SW at [place]. Everett said he would need to get patient's [facility] physician's approval for Hospice. He will call BALDO back. Everett called BALDO back and said patient's physician is not available to give approval so this will have to wait until Wednesday. Hospice can see patient, but patient will not be able to go home on hospice or to their inpatient unit until [facility] approves. BALDO updated [facility] hospice nurse who just arrived at [facility]. Plan: Likely home with [facility]. This will not happen until Wednesday as [facility] has to approve. Bridgette RAHMAN
[2023-10-22 22:00] VITALS: BP 90/58; PULSE 84; RESP 18; TEMP 36.7; O2SAT 93
[2023-10-23 00:34] VITALS: BP 99/67; PULSE 80; RESP 18; TEMP 36.8; O2SAT 92
[2023-10-23 02:15] VITALS: BMI 26.9
[2023-10-23] MEDS: oxyCODONE 5 MG Tablet 15 MG PO ×6 (02:27→22:47)
[2023-10-23] MEDS: Acetaminophen 500 MG Tablet 1000 MG PO ×3 (02:32→18:34)
[2023-10-23 06:30] VITALS: BP 96/62; PULSE 76; RESP 18; TEMP 36.7; O2SAT 92
--- NOTE | 2023-10-23 09:45 | PCM.PROGNOTE ---
Subjective Subjective Patient seen and examined. He had no active complaints. Pain was fairly well controlled. Review of systems was otherwise negative. Hospice was consulted yesterday. Objective Data Objective Data Vital Signs: Vital Signs Temp Pulse Resp BP Pulse Ox O2 Del Method O2 Flow Rate 98.0 F 76 18 96/62 92 Room Air 2 10/23/23 06:30 10/23/23 06:30 10/23/23 06:30 10/23/23 06:30 10/23/23 06:30 10/23/23 07:48 10/22/23 15:00 Oxygen Flow Rate (L/min) 2 Oxygen Delivery Method Room Air Weight: 188 lb 0.869 oz Body Mass Index (BMI) 26.9 Intake & Output: Intake and Output for Last 24 Hours 10/21/23 10/22/23 10/23/23 23:59 23:59 23:59 Intake Total 1480 / 1720 1060 / 1660 1200 / 1200 Output Total 1400 / 1700 875 / 1575 1200 / 1200 Balance 80 / 20 185 / 85 0 / 0 Medical Nutrition Assessment Dietitian: Malnutrition Criteria Met Start: 10/14/23 15:04 Freq: Status: Active Protocol: Document 10/18/23 12:50 RMA (Rec: 10/18/23 12:50 RMA [id number]) Nutrition Malnutrition Evidence of Malnutrition Exists Yes Malnutrition (severe): Chronic Evidenced By Suboptimal Energy Intake ( Severe),Weight Loss (Severe) Clinical Problem Chronic Disease or Condition Related Malnutrition Etiology severe, chronic malnutrition related to inadequate energy intake w/ metastatic disease Signs/Symptoms as evidenced by 22% wt loss x 3 months, estimated PO intake meeting <75% of estimated energy needs x 3 months Status Active Problem Recommendation Dietitian Recommendations/Changes Continue full liquid diet per GI. Will continue 8oz Ensure Plus High Protein TID with meals to provide additional calories/ protein. Will add magic cup BID w/ lunch and dinner. Will d/c ensure plus HP and ensure clear w/ medpass given ONS add to meal trays. May need to consider nutrition support given need for full liquid diet, wt loss significant for malnutrition. Lab / Micro Data 10/21/23 06:05 10/21/23 06:05 Micro: Microbiology 10/13/23 10:50 Mucosa - Nose Coronavirus COVID-19 PCR - Final Physical Exam Const alert, oriented x3, no apparent distress and average body habitus; Negative for healthy appearing or well nourished Constitutional Narrative: Oriented General Appearance: cooperative and well developed HEENT normocephalic, head/scalp atraumatic, hearing grossly normal bilaterally, moist oral mucous membranes and oropharynx normal Eyes PERRL, EOMs intact bilaterally and conjunctivae normal Neck no lymphadenopathy, supple and no JVD Neck Narrative: Trachea midline Lymph Lymphatic: no lymphadenopathy noted and no lymphedema noted Resp normal respiratory effort, normal air movement, no retractions, no use of accessory muscles and clear to auscultation bilaterally Cardio regular rate, regular rhythm, S1 normal heart sound, S2 normal heart sound, no murmurs, no rub, no gallops and no clicks GI normal to inspection, nondistended, normoactive bowel sounds, soft to palpation, non-tender and non-distended Extremity normal capillary refill, no clubbing, cyanosis or edema and no calf tenderness Extremity Narrative: General Extremity: no tenderness to palpation of joints or extremities Skin no rashes or lesions noted, no wounds, skin turgor normal, no jaundice, no petechiae and no mottling General Skin Exam: no breakdown Neuro oriented x3, CN's II-XII intact bilaterally, moves all extremities, no focal motor deficits, no sensory deficits noted and deep tendon reflexes 2+ bilaterally Neuro Narrative: No overt focal deficits appreciated Speech: speech normal Motor Exam: strength 5/5 throughout and general weakness Psych thought process normal, cooperative and affect normal Psych Narrative: Cooperative Appearance: appropriate Assessment & Plan Assessment/Plan (1) Metastatic cancer: (2) Hypercalcemia: PLAN: Plan #Metastatic cancer, suspected primary is esophagus CT of the abdomen, chest and pelvis showed extensive skeletal metastatic disease with severe osteolytic of several vertebrae and mets to the liver, small bilateral PE and esophageal thickening with small hiatal hernia GI on board; had EGD for which showed an esophageal mass, 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 oncology consulted as well as radiation oncology, as per GI, patient may benefit from esophageal stent as he has had difficulty swallowing especially with solid foods. GI however states that they need oncology and radiation oncology input to see if a stent would be the best option for patient. oncology on board. radiation oncology says patient couldnt lie flat in the radiation oncology suite for evaluation today due to pain. Gabapentin and IV dilaudid added on. Patient still having severe pain discussed with radiation oncology; per discussion, patient still unable to lie down flat today due to pain. Will discuss with patient about the option for hospice. Patient now leaning towards hospice. hospice consulted; patient now awaiting [place] approval for hospice care, which will likely be approved from Wednesday onwards. Discussed with GI about stents to help with the swelling. #Hypercalcemia, likely related to osteolytic lesions. resolved. #Odynophagia and dysphagia due to suspected primary esophageal cancer: Management as above. Awaiting stent placement. #Hypokalemia: Resolved #Bilateral PE: Patient started on heparin drip initially but now on Eliquis. had IVC filter inserted yesterday. #Severe malnutrition: Has lost about 80 pounds within the last few months due to his difficulty swallowing. Dietitian on board. #GERD: On PPI #Hypertension: On carvedilol and lisinopril. Hydrochlorothiazide held due to hypercalcemia. #Nicotine dependence: Counseled to quit. Nicotine patch 21 mg daily. DVT prophylaxis; on eliquis Disposition: awaiting dc to hospice. Charges/Coding Visit Charges Inpatient E&M: 59522 Subs Hosp L2
[2023-10-23 09:50] VITALS: BP 102/64; PULSE 77; RESP 18; TEMP 36.7; O2SAT 94
[2023-10-23] MEDS: APIXABAN 5 MG TABLET PO ×2 (10:03→21:04)
[2023-10-23] MEDS: Gabapentin 100 MG Capsule 200 MG PO ×3 (10:03→16:22)
[2023-10-23] MEDS: Carvedilol 25 MG Tablet PO ×2 (10:03→21:04)
[2023-10-23] MEDS: Lidocaine 5% Patch 1 PATCH TOPICAL (10:04)
[2023-10-23] MEDS: Pantoprazole Sodium 40 MG in 0.9% Normal Saline (100mL MB+) 100 ML 330 MG IV ×2 (10:08→21:04)
[2023-10-23] MEDS: 0.9% Saline Lock 10 ML Syringe IV ×2 (10:47→21:11)
[2023-10-23 15:50] VITALS: BP 103/71; PULSE 77; RESP 18; TEMP 36.6; O2SAT 92
[2023-10-23] MEDS: HYDROmorphone 1 MG/ML Syringe IV (21:11)
[2023-10-23 21:50] VITALS: BP 122/82; PULSE 83; RESP 18; TEMP 37.2; O2SAT 94
[2023-10-24] MEDS: oxyCODONE 5 MG Tablet 15 MG PO ×6 (02:52→23:51)
[2023-10-24] MEDS: Acetaminophen 500 MG Tablet 1000 MG PO ×3 (02:53→17:47)
[2023-10-24 03:45] VITALS: BMI 26.9
[2023-10-24 03:50] VITALS: BP 109/73; PULSE 71; RESP 18; TEMP 36.5; O2SAT 94
[2023-10-24] MEDS: APIXABAN 5 MG TABLET PO ×2 (08:41→20:31)
[2023-10-24] MEDS: Lisinopril 20 MG Tablet PO (08:41)
[2023-10-24] MEDS: Gabapentin 100 MG Capsule 200 MG PO ×3 (08:41→17:47)
[2023-10-24] MEDS: Lidocaine 5% Patch 1 PATCH TOPICAL (08:42)
[2023-10-24] MEDS: Carvedilol 25 MG Tablet PO ×2 (08:42→20:31)
[2023-10-24] MEDS: Pantoprazole Sodium 40 MG in 0.9% Normal Saline (100mL MB+) 100 ML 330 MG IV ×2 (08:46→20:31)
[2023-10-24] MEDS: 0.9% Saline Lock 10 ML Syringe IV ×4 (08:49→20:31)
[2023-10-24 09:05] VITALS: BP 119/71; PULSE 72; RESP 18; TEMP 36.5; O2SAT 96
[2023-10-24] MEDS: HYDROmorphone 1 MG/ML Syringe IV ×2 (10:02→15:11)
--- NOTE | 2023-10-24 11:27 | PN_ITS ---
Subjective Subjective Patient seen and examined. He had no active complaints. Review of systems otherwise negative. He has remained hemodynamically stable. Objective Data Objective Data Vital Signs: Vital Signs Temp Pulse Resp BP Pulse Ox O2 Del Method O2 Flow Rate 97.7 F L 72 18 119/71 96 Room Air 2 10/24/23 09:05 10/24/23 09:05 10/24/23 09:05 10/24/23 09:05 10/24/23 09:05 10/24/23 09:05 10/22/23 15:00 Oxygen Flow Rate (L/min) 2 Oxygen Delivery Method Room Air Weight: 187 lb 9.814 oz Body Mass Index (BMI) 26.9 Intake & Output: Intake and Output for Last 24 Hours 10/22/23 10/23/23 10/24/23 23:59 23:59 23:59 Intake Total 1060 / 1660 1900 / 2140 740 / 740 Output Total 875 / 1575 1450 / 1775 600 / 600 Balance 185 / 85 450 / 365 140 / 140 Medical Nutrition Assessment Dietitian: Malnutrition Criteria Met Start: 10/14/23 15:04 Freq: Status: Active Protocol: Document 10/18/23 12:50 RMA (Rec: 10/18/23 12:50 RMA [id number]) Nutrition Malnutrition Evidence of Malnutrition Exists Yes Malnutrition (severe): Chronic Evidenced By Suboptimal Energy Intake ( Severe),Weight Loss (Severe) Clinical Problem Chronic Disease or Condition Related Malnutrition Etiology severe, chronic malnutrition related to inadequate energy intake w/ metastatic disease Signs/Symptoms as evidenced by 22% wt loss x 3 months, estimated PO intake meeting <75% of estimated energy needs x 3 months Status Active Problem Recommendation Dietitian Recommendations/Changes Continue full liquid diet per GI. Will continue 8oz Ensure Plus High Protein TID with meals to provide additional calories/ protein. Will add magic cup BID w/ lunch and dinner. Will d/c ensure plus HP and ensure clear w/ medpass given ONS add to meal trays. May need to consider nutrition support given need for full liquid diet, wt loss significant for malnutrition. Lab / Micro Data 10/21/23 06:05 10/21/23 06:05 Micro: Microbiology 10/13/23 10:50 Mucosa - Nose Coronavirus COVID-19 PCR - Final Physical Exam Const alert, oriented x3, no apparent distress and average body habitus; Negative for healthy appearing or well nourished Constitutional Narrative: Oriented General Appearance: cooperative and well developed HEENT normocephalic, head/scalp atraumatic, hearing grossly normal bilaterally, moist oral mucous membranes and oropharynx normal Eyes PERRL, EOMs intact bilaterally and conjunctivae normal Eyes Narrative: EOM grossly intact, anicteric Neck no lymphadenopathy, supple and no JVD Neck Narrative: Trachea midline Lymph Lymphatic: no lymphadenopathy noted and no lymphedema noted Resp normal respiratory effort, normal air movement, no retractions, no use of accessory muscles and clear to auscultation bilaterally Cardio regular rate, regular rhythm, S1 normal heart sound, S2 normal heart sound, no murmurs, no rub, no gallops and no clicks GI normal to inspection, nondistended, normoactive bowel sounds, soft to palpation, non-tender and non-distended Extremity normal capillary refill, no clubbing, cyanosis or edema and no calf tenderness Extremity Narrative: General Extremity: no tenderness to palpation of joints or extremities Skin no rashes or lesions noted, no wounds, skin turgor normal, no jaundice, no petechiae and no mottling General Skin Exam: no breakdown Neuro oriented x3, CN's II-XII intact bilaterally, moves all extremities, no focal motor deficits, no sensory deficits noted and deep tendon reflexes 2+ bilaterally Speech: speech normal Motor Exam: strength 5/5 throughout and general weakness Psych thought process normal, cooperative and affect normal Psych Narrative: Cooperative Appearance: appropriate Assessment & Plan Assessment/Plan (1) Metastatic cancer: (2) Hypercalcemia: PLAN: Plan #Metastatic cancer, 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 * oncology consulted as well as radiation oncology, as per GI, patient may benefit from esophageal stent as he has had difficulty swallowing especially with solid foods. GI however states that they need oncology and radiation oncology input to see if a stent would be the best option for patient. * oncology on board. * radiation oncology says patient couldnt lie flat in the radiation oncology suite for evaluation today due to pain. Gabapentin and IV dilaudid added on. Patient still having severe pain * discussed with radiation oncology; per discussion, patient still unable to lie down flat today due to pain. Will discuss with patient about the option for hospice. * Patient now leaning towards hospice. hospice consulted; patient now awaiting [place] approval for hospice care, which will likely be approved from Wednesday onwards. * Discussed with GI about stents to help with the swelling. * #Hypercalcemia, likely related to osteolytic lesions. resolved. #Odynophagia and dysphagia due to suspected primary esophageal cancer: Management as above. Awaiting stent placement. #Hypokalemia: Resolved #Bilateral PE: Patient started on heparin drip initially but now on Eliquis. had IVC filter inserted yesterday. #Severe malnutrition: Has lost about 80 pounds within the last few months due to his difficulty swallowing. Dietitian on board. #GERD: On PPI #Hypertension: On carvedilol and lisinopril. Hydrochlorothiazide held due to hypercalcemia. #Nicotine dependence: Counseled to quit. Nicotine patch 21 mg daily. DVT prophylaxis; on eliquis Disposition: awaiting dc to hospice. Charges/Coding Visit Charges Inpatient E&M: 02516 Subs Hosp L2
[2023-10-24 15:05] VITALS: BP 134/85; PULSE 79; RESP 18; TEMP 36.5; O2SAT 96
[2023-10-24 21:05] VITALS: BP 105/64; PULSE 77; RESP 18; TEMP 36.5; O2SAT 96
[2023-10-25] MEDS: DiphenhydrAMINE 50 MG/ML Syringe 25 MG IV (00:57)
[2023-10-25 03:15] VITALS: BP 132/78; PULSE 75; RESP 18; TEMP 36.7; O2SAT 93
[2023-10-25] MEDS: Acetaminophen 500 MG Tablet 1000 MG PO ×3 (04:02→21:56)
[2023-10-25] MEDS: oxyCODONE 5 MG Tablet 15 MG PO ×5 (04:02→21:52)
[2023-10-25 06:00] VITALS: BMI 26.5
[2023-10-25 08:00] VITALS: BP 93/58
[2023-10-25] MEDS: Gabapentin 100 MG Capsule 200 MG PO ×3 (08:03→17:15)
[2023-10-25] MEDS: APIXABAN 5 MG TABLET PO ×2 (08:06→21:56)
[2023-10-25] MEDS: 0.9% Saline Lock 10 ML Syringe IV ×2 (08:06→09:51)
[2023-10-25] MEDS: Lidocaine 5% Patch 1 PATCH TOPICAL (08:06)
[2023-10-25 09:45] VITALS: BP 117/77; PULSE 73; RESP 18; TEMP 36.9; O2SAT 95
[2023-10-25] MEDS: HYDROmorphone 1 MG/ML Syringe IV (09:51)
[2023-10-25] MEDS: Pantoprazole Sodium 40 MG in 0.9% Normal Saline (100mL MB+) 100 ML 330 MG IV ×2 (09:52→21:57)
[2023-10-25] MEDS: Carvedilol 25 MG Tablet PO ×2 (09:52→21:56)
--- NOTE | 2023-10-25 10:55 | CASEMGMT ---
BALDO called [facility] in [place]. BALDO left Laquita a voice mail asking about the physician's approval for Hospice. Await return call. Bridgette RAHMAN
--- NOTE | 2023-10-25 11:31 | CASEMGMT ---
BALDO received a voice mail from Laquita at the [facility]. Laquita said her physician will need some updated progress notes and they want to know if patient plans on going home on Hospice or to the inpatient unit. BALDO spoke with patient and his . They confirmed the plan would be for patient to go to the inpatient Hospice Unit. BALDO let both know that [facility]. BALDO faxed updated progress notes to Laquita at the [facility]. BALDO also called Laquita back and let her know that BALDO faxed progress notes and that patient is interested in the inpatient Hospice unit. Await [facility] physician's approval. Bridgette Miller DIRECTOR PHYSICAL [facility]
--- NOTE | 2023-10-25 14:24 | CASEMGMT ---
BALDO called Laquita BLAND in [place] and left her a voice mail asking if she has any updates on physicians approval. Bridgette Miller THERAPY TECHNICIAN [facility]
[2023-10-25 15:55] VITALS: BP 118/72; PULSE 76; RESP 16; TEMP 36.6; O2SAT 94
--- NOTE | 2023-10-25 18:32 | PCM.PN.HOSP ---
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) Secondary malignant neoplasm of unspecified site (10/13/23) Elevated white blood cell count, unspecified (10/13/23) Unspecified severe protein-calorie malnutrition (10/13/23) Hypercalcemia (10/13/23) Dehydration (10/13/23) Hypokalemia (10/13/23) Neoplasm related pain (acute) (chronic) (10/13/23) Other pulmonary embolism without acute cor pulmonale (10/13/23) Abdominal aortic aneurysm, without rupture, unspecified (10/13/23) Acute embolism and thrombosis of unspecified deep veins of lower extremity, bilateral (10/13/23) Constipation, unspecified (10/13/23) Sciatica, left side (10/13/23) Other specified disorders of bone, unspecified site (10/13/23) Dysphagia, unspecified (10/13/23) Cachexia (10/13/23) Subjective Subjective Patient was seen and examined today, I had gastroenterology see the patient again for consideration of an esophageal stent, this would place tomorrow, patient is no longer receiving radiation due to the patient being uncomfortable on the table during the radiation treatment. Patient still complains of bone pain from his metastatic cancer, I have elected to place him on a fentanyl patch today-he agrees to try it. We are currently awaiting hospice approval from his [facility]. Objective Data Objective Data Vital Signs: Vital Signs Temp Pulse Resp BP Pulse Ox O2 Del Method O2 Flow Rate 97.8 F 76 16 118/72 94 Room Air 2 10/25/23 15:55 10/25/23 15:55 10/25/23 15:55 10/25/23 15:55 10/25/23 15:55 10/25/23 15:55 10/22/23 15:00 Oxygen Flow Rate (L/min) 2 Oxygen Delivery Method Room Air Weight: 84 kg Body Mass Index (BMI) 26.5 Intake & Output: Intake and Output for Last 24 Hours 10/23/23 10/24/23 10/25/23 23:59 23:59 23:59 Intake Total 1900 / 2140 1090 / 1570 2120 / 2120 Output Total 1450 / 1775 850 / 1300 1500 / 1500 Balance 450 / 365 240 / 270 620 / 620 Medical Nutrition Assessment Dietitian: Malnutrition Criteria Met Start: 10/14/23 15:04 Freq: Status: Active Protocol: Document 10/25/23 11:02 RMA (Rec: 10/25/23 11:03 RMA [id number]) Nutrition Malnutrition Evidence of Malnutrition Exists Yes Malnutrition (severe): Chronic Evidenced By Suboptimal Energy Intake ( Severe),Weight Loss (Severe) Clinical Problem Chronic Disease or Condition Related Malnutrition Etiology severe, chronic malnutrition related to inadequate energy intake w/ metastatic disease Signs/Symptoms as evidenced by 22% wt loss x 3 months, estimated PO intake meeting <75% of estimated energy needs x 3 months Status Active Problem Recommendation Dietitian Recommendations/Changes Continue full liquid diet per GI. Will continue 8oz Ensure Plus High Protein TID with meals to provide additional calories/ protein. Will continue magic cup BID w/ lunch and dinner given continued full liquid diet. Consider nutrition support given need for continued full liquid diet and weight loss significant for malnutrition. Noted plans for hospice care-- will sign-off, consult RD as needed. Lab / Micro Data 10/21/23 06:05 10/21/23 06:05 Micro: Microbiology 10/13/23 10:50 Mucosa - Nose Coronavirus COVID-19 PCR - Final Physical Exam Const alert, oriented x3 and no apparent distress General Appearance: cooperative, well kempt and well developed Orientation / Consciousness: awake, oriented to person, oriented to place and oriented to time HEENT normocephalic and moist oral mucous membranes Eyes PERRL, EOMs intact bilaterally and conjunctivae normal Neck supple, no JVD, thyroid normal and no carotid bruits General: trachea midline Resp normal respiratory effort, no retractions, no use of accessory muscles and clear to auscultation bilaterally Auscultation: Negative for rales, rhonchi or wheezes Cardio regular rate, regular rhythm, S1 normal heart sound, S2 normal heart sound, no murmurs, no rub and no gallops GI normal to inspection, nondistended, normoactive bowel sounds, soft to palpation, non-tender and non-distended Extremity no clubbing, cyanosis or edema Skin no rashes or lesions noted General Skin Exam: no breakdown Neuro oriented x3, CN's II-XII intact bilaterally, moves all extremities, no focal motor deficits and no sensory deficits noted Sensorium / Orientation: awake and alert Speech: speech normal Psych affect normal Assessment & Plan Assessment/Plan (1) Dysphagia: PLAN: Plan 1. 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 Patient will have a stent placed tomorrow in his esophagus by gastroenterology #2 hypercalcemia-resolved secondary to metastatic bone disease-monitor as necessary #3 bilateral acute PEs-patient is now on Eliquis, he also has an IVC filter #4 severe chronic protein and caloric malnutrition related to inadequate energy intake with metastatic disease as evidenced by a 22% weight loss over 3 months, estimated p.o. intake meeting less than 75% of estimated energy needs x 3 months-patient will continue 8 ounces of Ensure plus high-protein 3 times daily with meals to provide additional calories and protein, Magic cup twice daily will be added to lunch and dinner, nutritional services following patient #5 essential hypertension-patient is on carvedilol and lisinopril, hydrochlorothiazide was held due to hypercalcemia Total clinical time spent by myself addressing the patient's medical issues, reviewing all of his data, and collaborating with patient's care team: 35 minutes Charges/Coding Visit Charges Inpatient E&M: 52095 Subs Hosp L2
[2023-10-25 22:00] VITALS: BP 132/78; PULSE 86; RESP 18; TEMP 38.2; O2SAT 93
[2023-10-26] VITALS (9 sets, daily range): BP systolic 120–168; BP diastolic 71–100; PULSE 67–90; RESP 16–18; TEMP 36.3–36.9; O2SAT 94–99; BMI 26.6
[2023-10-26] MEDS: oxyCODONE 5 MG Tablet 15 MG PO ×4 (01:59→20:43)
[2023-10-26] MEDS: Acetaminophen 500 MG Tablet 1000 MG PO ×3 (06:08→20:36)
[2023-10-26] MEDS: Lidocaine 5% Patch 1 PATCH TOPICAL (08:54)
[2023-10-26] MEDS: Pantoprazole Sodium 40 MG in 0.9% Normal Saline (100mL MB+) 100 ML 330 MG IV ×2 (09:01→20:43)
--- NOTE | 2023-10-26 09:34 | CASEMGMT ---
BALDO called [facility] Coel[facility] and left her a voice mail requesting a return call. Bridgette Miller PICK UP OPERATOR [facility]
--- NOTE | 2023-10-26 11:30 | RAD_ITS ---
PROCEDURE: Esophageal stent insertion DATE OF EXAMINATION: 06/26/2024 INDICATION: Male, 63 years old. Dysphasia PHYSICIAN: Dr. Hernandez FLUOROSCOPY TIME (if supplied): (43.9) minutes/seconds RADIATION DOSAGE (If Supplied By Facility): CTDIvol = ( ) mGy, DLP = ( ) mGycm CONSENT: The risks, benefits and alternatives to the procedure were explained to the patient, and the patient agreed to the procedure and signed the consent. 5 images obtained, fluoroscopy dose of 14.44 MGY SEDATION: Local STERILE BARRIER TECHNIQUE: The following sterile barrier precautions were used during the procedure: hand hygiene; use of 2% chlorhexidine aseptic; use of a cap, mask, sterile gown, sterile gloves, sterile full body drape, and a large sterile sheet. PROCEDURE/TECHNIQUE: (All elements of maximal sterile barrier technique followed, including US elements as applicable) The risks, benefits, and alternatives to the procedure were explained to patient, and the patient agreed to the procedure and signed a consent form for the procedure. A timeout was performed to confirm the patient''s identity, the type of procedure, to be performed and the site of entry. Fluoroscopic guidance was provided for Dr. Hernandez to perform esophageal dilatation and stent placement. RAD/Fluoroscopy 1 Hr or Less IMPRESSION: Fluoroscopic guidance for esophageal dilatation and stent placement Electronically Signed: Isak Harris MD at 15:20 EST ,
--- NOTE | 2023-10-26 12:37 | OP.EGD_ITS ---
Patient Name: Sam Rock Procedure Date: 10/26/2023 11:37 AM Date of : 1960 Age: 63 Procedure: Upper GI endoscopy Indications: Dysphagia Providers: Leobardo Hernandez DO Medicines: Monitored Anesthesia Care Patient Profile: This is a 63 year old male. Refer to note in patient chart for documentation of history and physical. Patient has symptoms of dysphagia with both liquids and solids. Complications: No immediate complications. Procedure: Pre-Anesthesia Assessment: - Prior to the procedure, a History and Physical was performed, and patient medications and allergies were reviewed. The patient is competent. The risks and benefits of the procedure and the sedation options and risks were discussed with the patient. All questions were answered and informed consent was obtained. Patient identification and proposed procedure were verified by the physician in the pre-procedure area. Mental Status Examination: alert and oriented. Airway Examination: normal oropharyngeal airway and neck mobility. Respiratory Examination: clear to auscultation. CV Examination: normal. Prophylactic Antibiotics: The patient does not require prophylactic antibiotics. Prior Anticoagulants: The patient has taken no anticoagulant or antiplatelet agents. ASA Grade Assessment: IV - A patient with severe systemic disease that is a constant threat to life. After reviewing the risks and benefits, the patient was deemed in satisfactory condition to undergo the procedure. The anesthesia plan was to use monitored anesthesia care (MAC). Immediately prior to administration of medications, the patient was re-assessed for adequacy to receive sedatives. The heart rate, respiratory rate, oxygen saturations, blood pressure, adequacy of pulmonary ventilation, and response to care were monitored throughout the procedure. The physical status of the patient was re-assessed after the procedure. After obtaining informed consent, the endoscope was passed under direct vision. Throughout the procedure, the patient's blood pressure, pulse, and oxygen saturations were monitored continuously. The Endoscope was introduced through the mouth, and advanced to the second part of duodenum. The upper GI endoscopy was accomplished without difficulty. The patient tolerated the procedure well. Scope In: 12:02:15 PM Scope Out: 12:20:35 PM Total Procedure Duration Time 0 hours 18 minutes 20 seconds Findings: A large, ulcerating mass with bleeding and stigmata of recent bleeding was found in the lower third of the esophagus, 36 cm from the incisors. The mass was completely obstructing and circumferential (involving 100% of the lumen circumference). Area was successfully injected with 5 mL of a 0.1 mg/mL solution of epinephrine for drug delivery. Coagulation for hemostasis using argon plasma at 0.3 liters/minute and 20 rutledge was successful. Estimated blood loss was minimal. One malignant-appearing, intrinsic severe (stenosis; an endoscope cannot pass) stenosis was found 36 to 42 cm from the incisors. This stenosis measured 6 cm (in length). The stenosis was traversed after dilation. A TTS dilator was passed through the scope. Dilation with a [id number] mm balloon dilator was performed to 15 mm. The dilation site was examined and showed mild mucosal disruption. This was stented with a 14 mm x 120 mm [id number] fully covered stent under fluoroscopic guidance, proximal margin at 32 cm and distal margin at 44 cm from the incisors. To hold the stent in place], two hemostatic clips were successfully placed. 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 There was no bleeding at the end of the procedure. Diffuse mildly erythematous mucosa without bleeding was found in the entire examined stomach. No gross lesions were noted in the duodenal bulb. Impression: - Completely obstructing, malignant esophageal tumor was found in the lower third of the esophagus. Injected. Treated with argon plasma coagulation (APC). - Malignant-appearing esophageal stenosis. Dilated. Prosthesis placed. - Erythematous mucosa in the stomach. - No gross lesions in the duodenal bulb. - No specimens collected. Recommendation: - [facility]. - Full liquid diet. - Continue present medications. Procedure Code(s): --- Professional --- 95743, Esophagogastroduodenoscopy, flexible, transoral; with placement of endoscopic stent (includes pre- and post-dilation and guide wire passage, when performed) 67748, 59, Esophagogastroduodenoscopy, flexible, transoral; with control of bleeding, any method 85604, 59,51, Esophagogastroduodenoscopy, flexible, transoral; with directed submucosal injection(s), any substance 11290, 26, Intraluminal dilation of strictures and/or obstructions (eg, esophagus), radiological supervision and interpretation CPT copyright 2021 [employer]. All rights reserved. The codes documented in this report are preliminary and upon hospital coder review may be revised to meet current compliance requirements. Leobardo Hernandez DO 10/26/2023 12:37:27 PM This report has been signed electronically. Number of Addenda: 0 Note Initiated On: 10/26/2023 11:37 AM
--- NOTE | 2023-10-26 12:37 | OP.CCLET_ITS ---
10/26/2023 [facility] Re : Upper GI endoscopy procedure for [facility] This procedure was performed on Thursday, October 26, 2023. My impressions and recommendations are as follows: Impressions : - Completely obstructing, malignant esophageal tumor was found in the lower third of the esophagus. Injected. Treated with argon plasma coagulation (APC). - Malignant-appearing esophageal stenosis. Dilated. Prosthesis placed. - Erythematous mucosa in the stomach. - No gross lesions in the duodenal bulb. - No specimens collected. Recommendations : - Return patient to [facility] for [facility]. - Full liquid diet. - Continue present medications. My findings are described in the full procedure note, which is enclosed. If I can be of further assistance, please feel free to contact me at . Sincerely, Leobardo Friend, 10/26/2023 12:37:27 PM This report has been signed electronically.
[2023-10-26] MEDS: 0.9% Saline Lock 10 ML Syringe IV ×4 (13:15→21:49)
[2023-10-26] MEDS: HYDROmorphone 1 MG/ML Syringe IV ×3 (13:16→21:49)
[2023-10-26] MEDS: Gabapentin 100 MG Capsule 200 MG PO ×2 (14:35→18:18)
[2023-10-26] MEDS: Carvedilol 25 MG Tablet PO ×2 (14:36→20:36)
[2023-10-26] MEDS: Polyethylene Glycol 3350 17 GM PACKET PO (14:36)
[2023-10-26] MEDS: APIXABAN 5 MG TABLET PO ×2 (14:36→20:36)
--- NOTE | 2023-10-26 14:45 | CASEMGMT ---
BALDO received a return call from Laquita with [facility]. Laquita said that the [facility] inpatient hospice physician has to approve patient going to [facility]'s inpatient unit. Laquita said that they already contacted [facility] and [facility] is aware what they need to do to get patient approved. BALDO called Zoe at [facility] and she was not aware of this process and she is not sure who the GA spoke with so she was going to check and will get back to BALDO. Bridgette Miller [employer]ACE[employer]
--- NOTE | 2023-10-26 15:05 | CASEMGMT ---
BALDO received another phone call from Laquita BLAND at [facility]. Laquita said the [facility] SW will have to handle getting approval for patient to go to [facility]'s inpatient unit. The [facility] SW is Hugo Oneill. His phone number is: [phone] and fax is [phone]. Laquita said BALDO needs to send clinicals to Hugo. BALDO faxed clinicals to Hugo at the [facility]. Bridgette RAHMAN
--- NOTE | 2023-10-26 16:42 | NURSING ---
Received call from Hugo at [place]. Stated that they are approving a 3 day stay at [facility]. After the 3 days [facility] will need to provide more information. Hugo to call [facility].
--- NOTE | 2023-10-26 17:36 | DCINST_ITS ---
Discharge Instructions Diet Discharge Diet: - (Full liquid diet) Activity Discharge Activity: Return to Normal Activity Weight Bearing Status: Full weight bearing Follow Up Care Test Results: Test results from this visit will be discussed in further detail at your follow- up appointment, if applicable. 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 Attending Provider: Tadeo Lizarraga Primary Care Provider: [facility] Consulting Providers: Kika Garcia; Guerline Sierra; Ivan Sanders; Albino Phelps; Loren Schaffer; Joe Quezada; Majo Hicks; Chas Sandy; Roge Treviño; Ej Mills; Jose Jain; Jorgito Maurice; Tray Patel; Jj Sanchez; Genaro Ruiz; Eugenio Manzano; Erika Bond NP; Jignesh Coronado; Jose Palma; Valentina Olson; Lexii Blair; Cherrie Ho MATHEMATICIAN RESEARCH; Yoselin Garnica Discharge Orders/Prescriptions Prescriptions: New acetaminophen 500 mg Tablet 1,000 mg PO Q8 Qty: 0 0RF Eliquis 5 mg Tablet 5 mg PO BID Qty: 0 0RF Taper: Apixaban VTE Treatment 10 mg TWICE A DAY for 7 Days and 0 Hour 5 mg TWICE A DAY for 180 Days and 0 Hour fentanyl 50 mcg/hr Patch 72 Hour 50 mcg transdermal Q3D Qty: 0 0RF nicotine 14 mg/24 hr Patch 24 Hour 14 mg transdermal DAILY Qty: 0 0RF polyethylene glycol 3350 17 gram Powder In Packet 17 g PO BID Qty: 0 0RF lisinopril 20 mg Tablet 20 mg PO DAILY Qty: 0 0RF lidocaine 5 % Adhesive Patch,Medicated 1 patch topical DAILY Qty: 0 0RF Protocol: *Topical Application Instructions APPLICATION INSTRUCTIONS: Over right rib pain gabapentin 100 mg Capsule 200 mg PO TIDCM Qty: 0 0RF oxycodone 5 mg Tablet 15 mg PO Q4H PRN PRN (Reason: Pain Score 4-10) Qty: 0 0RF pantoprazole [Protonix] 40 mg tablet,delayed release (DR/EC) 40 mg PO DAILY Qty: 1 0RF Continued carvedilol 25 mg tablet 25 mg PO BID Rx Instructions: must administer with a meal/food Discontinued diclofenac sodium 1 % gel 4 g TOPICAL UD PRN (Reason: PAIN ) Rx Instructions: apply to single knee, ankle, foot; for foot includes sole/toes/top of foot lisinopril-hydrochlorothiazide 20-25 mg tablet 1 tab PO BID ibuprofen 200 mg tablet 200 - 400 mg PO Q4H Patient Comments: PT STATES THAT HE TAKES ABOUT 17 TABS (200MG/TAB) EVERY COUPLE HOURS omega 8-hho-wof-fish oil [Fish Oil] 1,200 (144-216) mg capsule 1 cap PO DAILY cholecalciferol (vitamin D3) [D3-2000] 50 mcg (2,000 unit) capsule 50 mcg PO DAILY vitamin B complex [B Complex-Vitamin B12] Tablet 1 tab PO DAILY Disposition Disposition (needs filled in before D/C Order can be placed): Hospice in Medical Facility
--- NOTE | 2023-10-26 17:44 | PCM.DC.SUM ---
Providers Date of Admission: 10/13/23 Date of Discharge: 10/26/23 Primary Care Physician: [facility] Consultations 10/13/23 20:34 Consult: Gastroenterology Routine Consulting Provider: Maria L [facility] Reason for Consult: suspected esophageal cancer EMERGENT Consult: No Notified: Yes Date Notified: 10/13/23 Time Notified: 18:55 Method of Notification: Verbal 10/18/23 05:55 Consult: Oncology/Hematology AM (NON MEDS) Consulting Provider: [facility] Reason for Consult: New metastatic cancer, unable to d/c home given pain and weakness EMERGENT Consult: No MD Notified: Yes Date Notified: 10/18/23 Time Notified: 09:54 Method of Notification: Verbal 10/18/23 15:44 Consult: Oncology/Hematology Routine Consulting Provider: [facility] Reason for Consult: metastatic cancer, suspected esophageal primary EMERGENT Consult: No MD Notified: Yes Date Notified: 10/18/23 Time Notified: 15:44 Method of Notification: Verbal 10/18/23 15:48 Consult: Oncology Radiation [Consult: Radiation Oncology] Routine Consulting Provider: Ej Mills Reason for Consult: metastatic cancer, suspected primary esophagus EMERGENT Consult: No MD Notified: Yes Date Notified: 10/18/23 Time Notified: 16:13 Method of Notification: Verbal 10/19/23 11:20 Consult: Vascular Surgery Routine Consulting Provider: Jignesh Coronado Reason for Consult: PE, may benefit from filter due to metastatic cancer EMERGENT Consult: No MD Notified: Yes Date Notified: 10/19/23 Time Notified: 11:20 Method of Notification: Text 10/22/23 14:12 Consult: Hospice / Palliative Care Routine Consulting Provider: [facility] Reason for Consult: metastatic esophageal cancer EMERGENT Consult: No MD Notified: Yes Date Notified: 10/22/23 Time Notified: 14:13 Method of Notification: Answering Service Comments:: Via SW Reason For Visit: METASTATIC CANCER OF UNKNOWN ORIGIN/PE Diagnosis Discharge Diagnosis (1) Dysphagia: Status: Acute Code(s): R13.10 - Dysphagia, unspecified Plan 1. 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 Patient will have a stent placed tomorrow in his esophagus by gastroenterology #2 hypercalcemia-resolved secondary to metastatic bone disease-monitor as necessary #3 bilateral acute PEs-patient is now on Eliquis, he also has an IVC filter #4 severe chronic protein and caloric malnutrition related to inadequate energy intake with metastatic disease as evidenced by a 22% weight loss over 3 months, estimated p.o. intake meeting less than 75% of estimated energy needs x 3 months-patient will continue 8 ounces of Ensure plus high-protein 3 times daily with meals to provide additional calories and protein, Magic cup twice daily will be added to lunch and dinner, nutritional services following patient #5 essential hypertension-patient is on carvedilol and lisinopril, hydrochlorothiazide was held due to hypercalcemia Total clinical time spent by myself addressing the patient's medical issues, reviewing all of his data, and collaborating with patient's care team: 35 minutes Medications at Discharge Home Medications carvedilol 25 mg tablet 25 mg PO BID BLOOD PRESSURE 07/17/20 acetaminophen 500 mg tablet 1,000 mg (2 x 500 mg) PO Q8 #0 tabs 10/26/23 apixaban 5 mg tablet (Eliquis) 5 mg PO BID #0 tabs 10/26/23 fentanyl 50 mcg/hr transdermal patch 50 mcg transdermal Q3D #0 ea 10/26/23 gabapentin 100 mg capsule 200 mg (2 x 100 mg) PO TIDCM #0 caps 10/26/23 lidocaine 5 % topical patch 1 patch topical DAILY #0 ea 10/26/23 lisinopril 20 mg tablet 20 mg PO DAILY #0 tabs 10/26/23 nicotine 14 mg/24 hr daily transdermal patch 14 mg transdermal DAILY #0 ea 10/26/23 oxycodone 5 mg tablet 15 mg (3 x 5 mg) PO Q4H PRN PRN Pain Score 4-10 #0 tabs 10/26/23 pantoprazole 40 mg tablet,delayed release (Protonix) 40 mg PO DAILY #1 TAB 10/26/23 polyethylene glycol 3350 17 gram oral powder packet 17 g PO BID #0 ea 10/26/23 Hospital Course Operations None Procedures EGD (With insertion of esophageal stent) Summary of Care Provided Minutes Spent on Discharge: 31 Hospital Course: This 63-year-old white male was seen in the emergency room at [facility] after being brought in with complaints of severe right lateral lower chest pain and generalized weakness with inability to perform ADLs at home. Patient had been receiving medical care at the [facility] but was dissatisfied with the care he was given. Patient underwent workup in the emergency room which included a chest and abdomen and pelvis CT, there is noted to be extensive skeletal metastatic disease including severe osteophytic distraction of cervical vertebrae much of the pelvis. There is extensive metastatic disease to the liver and small bilateral pulmonary emboli. There was a question of distal esophageal thickening and small hiatal hernia. Brain MRI was performed, there is nonspecific destructive lesion of the clivus which may be consistent with multiple myeloma or metastases. Labs revealed elevated white blood cell count, patient's calcium was 12.9, patient was admitted to PCU and placed on IV heparin, he was seen in consultation by gastroenterology, an EGD was performed which showed a likely malignant esophageal tumor in the lower third of the esophagus, this area was biopsied. Patient was seen by oncology and radiation oncology, he underwent insertion of an inferior vena caval filter by vascular surgery. An attempt was made to provide palliative radiation to the patient's esophagus, however, he was unable to lie on the treatment table due to severe pain. Gastroenterology was contacted regarding insertion of an esophageal stent, this was carried out. Discussions were carried out with the patient and his family regarding hospice, patient agreed to sign up for hospice. On 10/26/2023, patient was seen and examined: On examination he appeared older than his stated age, he was in moderate distress due to generalized pain. Vital signs as documented. Skin warm and dry and without overt rashes. Neck without JVD, neck was supple, trachea midline, thyroid was normal. Lungs clear bilaterally, normal air movement was noted. Heart exam notable for regular rhythm, normal sounds and absence of murmurs, rubs or gallops. Abdomen unremarkable and without evidence of organomegaly, masses, or abdominal aortic enlargement. Bowel sounds are present, abdomen is not distended. Extremities nonedematous, no cyanosis was noted, no clubbing was noted. Neuro: Cranial nerves II through XII are grossly intact, no focal motor deficits were noted, sensation to light touch and pinprick intact, motor exam 5/5 throughout. Psych: Patient is alert and oriented x3, he does not appear anxious or depressed, he does not appear agitated. Patient was transported to inpatient hospice in [facility] on 10/26/2023 in stable condition, prognosis was poor due to widespread esophageal cancer. Medical Records Data Medical Nutrition Assessment Dietitian: Malnutrition Criteria Met Start: 10/14/23 15:04 Freq: Status: Active Protocol: Document 10/25/23 11:02 RMA (Rec: 10/25/23 11:03 RMA [id number]) Nutrition Malnutrition Evidence of Malnutrition Exists Yes Malnutrition (severe): Chronic Evidenced By Suboptimal Energy Intake ( Severe),Weight Loss (Severe) Clinical Problem Chronic Disease or Condition Related Malnutrition Etiology severe, chronic malnutrition related to inadequate energy intake w/ metastatic disease Signs/Symptoms as evidenced by 22% wt loss x 3 months, estimated PO intake meeting <75% of estimated energy needs x 3 months Status Active Problem Recommendation Dietitian Recommendations/Changes Continue full liquid diet per GI. Will continue 8oz Ensure Plus High Protein TID with meals to provide additional calories/ protein. Will continue magic cup BID w/ lunch and dinner given continued full liquid diet. Consider nutrition support given need for continued full liquid diet and weight loss significant for malnutrition. Noted plans for hospice care-- will sign-off, consult RD as needed. Weight / BMI Weight Weight: 84.1 kg Body Mass Index (BMI) 26.6 ABG / Lab / Microbiology Data 10/21/23 06:05 10/21/23 06:05 Microbiology: Microbiology 10/13/23 10:50 Mucosa - Nose Coronavirus COVID-19 PCR - Final Radiography Diagnostic Testing: Radiology Impression Fluoroscopy 10/26/23 11:30 IMPRESSION: Fluoroscopic guidance for esophageal dilatation and stent placement Electronically Signed: Isak Harris MD at 15:20 EST , D/C Instructions Discharge Diet: - (Full liquid diet) Weight Bearing Status: Full weight bearing Meaningful Use Info Meaningful Use Diagnoses (Choose all that apply): None applicable 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 Attending Provider: Tadeo Lizarraga Primary Care Provider: [facility],[place] Consulting Providers: Kika Garcia; Guerline Sierra; Ivan Sanders; Albino Phelps; Loren Schaffer; Joe Quezada; Majo Hicks; Chas Sandy; Roge Treviño; Ej Mills; Jose Jain; Jorgito Maurice; Tray Patel; Jj Sanchez; Genaro Ruiz; Eugenio Manzano; Erika Bond COSTUME SEAMSTRESS; Jignesh Coronado; Jose Palma; Valentina Olson; Lexii Blair; Cherrie Ho COSTUME SEAMSTRESS; Yoselin Garnica Discharge Orders/Prescriptions Prescriptions: New acetaminophen 500 mg Tablet 1,000 mg PO Q8 Qty: 0 0RF Eliquis 5 mg Tablet 5 mg PO BID Qty: 0 0RF Taper: Apixaban VTE Treatment 10 mg TWICE A DAY for 7 Days and 0 Hour 5 mg TWICE A DAY for 180 Days and 0 Hour fentanyl 50 mcg/hr Patch 72 Hour 50 mcg transdermal Q3D Qty: 0 0RF nicotine 14 mg/24 hr Patch 24 Hour 14 mg transdermal DAILY Qty: 0 0RF polyethylene glycol 3350 17 gram Powder In Packet 17 g PO BID Qty: 0 0RF lisinopril 20 mg Tablet 20 mg PO DAILY Qty: 0 0RF lidocaine 5 % Adhesive Patch,Medicated 1 patch topical DAILY Qty: 0 0RF Protocol: *Topical Application Instructions APPLICATION INSTRUCTIONS: Over right rib pain gabapentin 100 mg Capsule 200 mg PO TIDCM Qty: 0 0RF oxycodone 5 mg Tablet 15 mg PO Q4H PRN PRN (Reason: Pain Score 4-10) Qty: 0 0RF pantoprazole [Protonix] 40 mg tablet,delayed release (DR/EC) 40 mg PO DAILY Qty: 1 0RF Continued carvedilol 25 mg tablet 25 mg PO BID Rx Instructions: must administer with a meal/food Discontinued diclofenac sodium 1 % gel 4 g TOPICAL UD PRN (Reason: PAIN ) Rx Instructions: apply to single knee, ankle, foot; for foot includes sole/toes/top of foot lisinopril-hydrochlorothiazide 20-25 mg tablet 1 tab PO BID ibuprofen 200 mg tablet 200 - 400 mg PO Q4H Patient Comments: PT STATES THAT HE TAKES ABOUT 17 TABS (200MG/TAB) EVERY COUPLE HOURS omega 2-sbv-iaw-fish oil [Fish Oil] 1,200 (144-216) mg capsule 1 cap PO DAILY cholecalciferol (vitamin D3) [D3-2000] 50 mcg (2,000 unit) capsule 50 mcg PO DAILY vitamin B complex [B Complex-Vitamin B12] Tablet 1 tab PO DAILY Disposition Disposition (needs filled in before D/C Order can be placed): Hospice in Medical Facility Charges/Coding Visit Charges Inpatient E&M: 11449 Disch Hosp >30min
--- NOTE | 2023-10-26 18:49 | NURSING ---
Addendum entered by Leyda See 10/26/23 19:02: Per Margaret at [facility], pt signed last week. Transport set up for 11pm. Original Note: Call placed and report given [facility] to Margaret nurse. Margaret to call back stating if patient is able to come to unit tonight or not. Provided PCU phone number, waiting from call back to confirm.
[2023-10-27 02:11] VITALS: BP 94/54; PULSE 71; RESP 18; TEMP 36.4; O2SAT 92
[2023-10-27] MEDS: oxyCODONE 5 MG Tablet 15 MG PO (03:15)
[2023-10-27 03:18] VITALS: BMI 26.7
== END 2023-10-27 04:35 | disposition hospice, inpatient (51) | DRG 374 ==
LOC: ED 16:39 → PCU 19:44
PROVIDERS: Anesthesiology; Internal Medicine; Internal Medicine Gastroenterology; Surgery Trauma Surgery; Admitting Provider Internal Medicine; Emergency Provider Emergency Medicine; Visit Provider Internal Medicine
PROC: 0DJ08ZZ Inspection of Upper Intestinal Tract, Via Natural or Artificial Opening Endoscopic (ICD-10-PCS; CPT 43235; principal; 2023-10-14 10:25)
PROC: 06H03DZ Insertion of Intraluminal Device into Inferior Vena Cava, Percutaneous Approach (ICD-10-PCS; principal; 2023-10-20 14:00)
DX: C15.5 Malignant neoplasm of lower third of esophagus (principal); E43 Unspecified severe protein-calorie malnutrition; I26.99 Other pulmonary embolism without acute cor pulmonale; I82.432 Acute embolism and thrombosis of left popliteal vein; C79.51 Secondary malignant neoplasm of bone; C79.89 Secondary malignant neoplasm of other specified sites; D68.69 Other thrombophilia; R64 Cachexia; K76.6 Portal hypertension; I82.443 Acute embolism and thrombosis of tibial vein, bilateral; I82.453 Acute embolism and thrombosis of peroneal vein, bilateral; C78.7 Secondary malignant neoplasm of liver and intrahepatic bile duct; K22.2 Esophageal obstruction; J43.9 Emphysema, unspecified; I82.463 Acute embolism and thrombosis of calf muscular vein, bilateral; I82.462 Acute embolism and thrombosis of left calf muscular vein; I71.40 Abdominal aortic aneurysm, without rupture, unspecified; I10 Essential (primary) hypertension; E86.0 Dehydration; E83.52 Hypercalcemia; E78.5 Hyperlipidemia, unspecified; F17.210 Nicotine dependence, cigarettes, uncomplicated; K21.9 Gastro-esophageal reflux disease without esophagitis; E87.6 Hypokalemia; K44.9 Diaphragmatic hernia without obstruction or gangrene; D72.829 Elevated white blood cell count, unspecified; M54.42 Lumbago with sciatica, left side; K59.00 Constipation, unspecified; K31.89 Other diseases of stomach and duodenum; E87.70 Fluid overload, unspecified; R62.7 Adult failure to thrive; Z68.24 Body mass index [BMI] 24.0-24.9, adult; Z66 Do not resuscitate; R13.10 Dysphagia, unspecified; G89.3 Neoplasm related pain (acute) (chronic); Z79.899 Other long term (current) drug therapy; Z80.0 Family history of malignant neoplasm of digestive organs
CPT/HCPCS: 36415; 37191; 70450; 70553; 71260; 74177; 76000; 76937; 80053; 80307; 80320; 80329; 81001; 81002; 82140; 82306; 83605; 83735; 83970; 84100; 84153; 84439; 84443; 85025; 85610; 85730; 87635; 88305; 88331; 88341; 88342; 92610; 93005; 93970; 94668; 97110; 97162; 97166; 97530; 97535; 97802; 97803; 99284; 99406; A9575; C1880; C1894; J7030; J7040; J7050; J7120; Q9967; A4216; C1769; G0103; G0480; J2405